=== PATIENT | male | born 1950 | race Caucasian/White ===

== ENCOUNTER 2018-08-23 17:23 | Inpatient (IN) | payer MEDICARE, OTHER, SELFPAY ==
[2018-08-23 17:31] VITALS: BP 144/75; PULSE 83; RESP 14; TEMP 37; O2SAT 93
--- NOTE | 2018-08-23 17:53 | W.ED.GENAD ---
Discharge Plan Disposition Patient Disposition: [facility] INPATIENT Condition: Stable Discharge Details Chief Complaint: Abd Prob Clinical Impression: Bowel obstruction Primary Care Provider: Mary Ellen Simpson ED Provider: Glenn Martino Home Meds and New Rx's Prescriptions: No Action bisacodyl [Dulcolax (bisacodyl)] 10 mg suppository 10 mg OR DAILY PRN (Reason: constipation) Qty: 4 RF: 0 Fleet Enema Extra 19-7 gram/197 mL enema 197 ml OR ONCE Qty: 460 RF: 2 Medical Decision Making 67-year-old male presents on referral from Dr. Simpson's office. He has had a history of abdominal surgery x2, once as a child, and again for anterior abdominal hernia in 1988. The patient has had progressive abdominal distention and discomfort over 2 days time, now with nausea that is worsened by taking liquids or solids by mouth. No flatus and no BM for 2 days. He is afebrile, in mild distress, his presentation and exam are concerning for ileus versus partial or complete bowel obstruction. Patient had IV access established, fluids initiated, given antiemetic, analgesic, referred for laboratory testing and CT imaging. Patient has elevated white blood cell count of 14. Lactic acid is 1.8. CT images reveal Umbilical hernia with high grade small bowel obstruction. I subsequently applied direct pressure to the patient's umbilicus with a palpable reduction of the hernia. NG tube ordered. Dr. Pandya will attend to the patient in consultation Lab Data Lab results reviewed: Yes I reviewed the patient's lab results. Laboratory Results - last 24 hr 08/23/18 08/23/18 08/23/18 17:40 17:40 17:40 WBC 14.04 H RBC 5.27 Hgb 16.0 Hct 47.6 MCV 90.3 MCH 30.4 MCHC 33.6 RDW 13.0 Plt Count 301 MPV 9.6 Immature Gran % 0.1 Neutrophils % 87.3 Lymphocytes % 5.6 Monocytes % 6.9 Eosinophils % 0.0 Basophils % 0.1 Absolute Neutrophils 12.26 H Absolute Lymphocytes 0.79 L Absolute Monocytes 0.97 H Absolute Eosinophils 0.00 Absolute Basophils 0.01 Sodium 144 Potassium 3.6 Chloride 103 Carbon Dioxide 28.1 Anion Gap 12.9 H BUN 25 H Creatinine 1.36 H Estimated GFR/1.73 m2 52.27 Glucose 180 H Lactate 1.8 H Calcium 9.9 Total Bilirubin 1.3 H AST 13 L ALT 18 Alkaline Phosphatase 95 Total Protein 7.6 Albumin 4.0 HPI General Mode of arrival: ambulatory. Date/Time Provider Initiated Documentation: 08/23/18 17:25. Limitations to Documentation: no limitations. Information obtained by: patient. History of Present Illness 67 year old M presents to the emergency department with the chief complaint of Abdominal distention and nausea for 2-1/2 days, described as moderate and similar to prior episodes, Quality is described as dull and constant, and is localized to the abdomen. Patient reports no radiation. Patient started experiencing this day(s) and it has been intermittent. No relieving factors improve symptom(s), Eating worsens symptoms . Patient notes nausea/vomiting; denies fever/chills. Patient did receive the following treatments prior to arrival, none Related Data Home Medications Medication Instructions Recorded Confirmed bisacodyl 10 mg rectal suppository 10 mg OR DAILY PRN #4 each 08/23/18 08/23/18 sodium phosphates 19 gram-7 197 ml OR ONCE #460 ml 08/23/18 08/23/18 gram/197 mL enema Previous Rx's Medication Instructions Recorded bisacodyl 10 mg rectal suppository 10 mg OR DAILY PRN #4 each 08/23/18 sodium phosphates 19 gram-7 197 ml OR ONCE #460 ml 08/23/18 gram/197 mL enema Allergies Allergy/AdvReac Type Severity Reaction Status Date / Time No Known Allergies Allergy Verified 08/23/18 17:59 General Stated Complaint: Abd Prob SERGIO: 3 Review of Systems Review of Systems No fever. Similar symptoms in the past that resolved with nothing by mouth at home and bowel rest. 8 systems reviewed and otherwise negative. [facility] Medical History History of alcoholism (Acute) History of tobacco use (Acute) Malrotation of intestine (Acute) Surgical History S/P tonsillectomy and adenoidectomy (Acute) History of hernia repair (Chronic ~1987) Family History Mother Dementia TIA (transient ischemic attack) Father No problems noted. Son Depression Daughter No problems noted. Social History Smoking/Tobacco Use Status: Former Tobacco Use Tobacco: How many years used: 18 Alcohol Intake: former Year quit: 1984 Drug use: Never Substance use type: does not use Household members: spouse Number of Children: 2 Pets and animals: Yes Pets and animals: cat(s) and dog(s) What is your relationship status?: Panel score (0-1 are the most socially isolated patients): 1 What type of physical activity do you participate in: none Seatbelt use: always Drive intox or ride w/intox dray driver: No Working smoke detector in home: Yes Carbon monox detector in home: Yes Do you feel safe at home: Yes Do you feel safe in your relationship?: Yes Exam Narrative Exam Narrative: GEN: awake, alert, oriented 3. Pleasant, well groomed, interactive. HEAD: Normocephalic, atraumatic ENT: Mucous membranes moist, oropharynx unremarkable, External ear exam unremarkable EYES: PERRL, EOMI NECK: Full ROM, no STEFAN, no menigismus CHEST/RESP: Nontender, clear to auscultation bilateral, no wheeze/rhonchi/rales CARDIOVASCULAR: RRR, no murmur, rub rohan. 2+ Rad pulse bilateral ABDOMEN: Soft, distended, no mass. Minimal tenderness, + but decreased bowel sounds EXT: Full ROM, no edema, no rash Neuro: Grossly normal neurologic exam, conversant, interactive. Psych: Speech fluent, thoughts congruent, affect normal Course Vital Signs Temperature 37.0 C 08/23/18 17:31 Pulse 83 08/23/18 17:31 Respiratory Rate 14 08/23/18 17:31 Blood Pressure 144/75 H 08/23/18 17:31 Pulse Oximetry 93 L 08/23/18 17:31 Temperature 37.0 C 08/23/18 17:31 Temperature Source Temporal Artery Scan 08/23/18 17:31 Pulse 83 08/23/18 17:31 Respiratory Rate 14 08/23/18 17:31 Blood Pressure 144/75 H 08/23/18 17:31 Blood Pressure Position Sitting 08/23/18 17:31 Pulse Oximetry 93 L 08/23/18 17:31 Oxygen Delivery Method Room Air 08/23/18 17:31 Oxygen Flow Rate 0 08/23/18 17:31 Pain Level 6 08/23/18 17:31
--- NOTE | 2018-08-23 17:56 | ED.GENADUL_ITS ---
Discharge Plan Disposition Patient Disposition: [facility] INPATIENT Condition: Stable Discharge Details Chief Complaint: Abd Prob Clinical Impression: Bowel obstruction Primary Care Provider: Mary Ellen Simpson ED Provider: Glenn Martino Home Meds and New Rx's Prescriptions: No Action bisacodyl [Dulcolax (bisacodyl)] 10 mg suppository 10 mg NH DAILY PRN (Reason: constipation) Qty: 4 RF: 0 Fleet Enema Extra 19-7 gram/197 mL enema 197 ml NH ONCE Qty: 460 RF: 2 Medical Decision Making 67-year-old male presents on referral from Dr. Simpson's office. He has had a history of abdominal surgery x2, once as a child, and again for anterior abdominal hernia in 1988. The patient has had progressive abdominal distention and discomfort over 2 days time, now with nausea that is worsened by taking liquids or solids by mouth. No flatus and no BM for 2 days. He is afebrile, in mild distress, his presentation and exam are concerning for ileus versus partial or complete bowel obstruction. Patient had IV access established, fluids initiated, given antiemetic, analgesic, referred for laboratory testing and CT imaging. Patient has elevated white blood cell count of 14. Lactic acid is 1.8. CT images reveal Umbilical hernia with high grade small bowel obstruction. I subsequently applied direct pressure to the patient's umbilicus with a palpable reduction of the hernia. NG tube ordered. Dr. Pandya will attend to the patient in consultation Lab Data Lab results reviewed: Yes I reviewed the patient's lab results. Laboratory Results - last 24 hr 08/23/18 08/23/18 08/23/18 17:40 17:40 17:40 WBC 14.04 H RBC 5.27 Hgb 16.0 Hct 47.6 MCV 90.3 MCH 30.4 MCHC 33.6 RDW 13.0 Plt Count 301 MPV 9.6 Immature Gran % 0.1 Neutrophils % 87.3 Lymphocytes % 5.6 Monocytes % 6.9 Eosinophils % 0.0 Basophils % 0.1 Absolute Neutrophils 12.26 H Absolute Lymphocytes 0.79 L Absolute Monocytes 0.97 H Absolute Eosinophils 0.00 Absolute Basophils 0.01 Sodium 144 Potassium 3.6 Chloride 103 Carbon Dioxide 28.1 Anion Gap 12.9 H BUN 25 H Creatinine 1.36 H Estimated GFR/1.73 m2 52.27 Glucose 180 H Lactate 1.8 H Calcium 9.9 Total Bilirubin 1.3 H AST 13 L ALT 18 Alkaline Phosphatase 95 Total Protein 7.6 Albumin 4.0 HPI General Mode of arrival: ambulatory . Date/Time Provider Initiated Documentation: 08/23/18 17:25 . Limitations to Documentation: no limitations . Information obtained by: patient . History of Present Illness 67 year old M presents to the emergency department with the chief complaint of Abdominal distention and nausea for 2-1/2 days, described as moderate and similar to prior episodes, Quality is described as dull and constant, and is localized to the abdomen. Patient reports no radiation. Patient started experiencing this day(s) and it has been intermittent. No relieving factors improve symptom(s), Eating worsens symptoms . Patient notes nausea/vomiting; denies fever/chills. Patient did receive the following treatments prior to arrival, none Related Data Home Medications Medication Instructions Recorded Confirmed bisacodyl 10 mg rectal suppository 10 mg NH DAILY PRN #4 each 08/23/18 08/23/18 sodium phosphates 19 gram-7 197 ml NH ONCE #460 ml 08/23/18 08/23/18 gram/197 mL enema Previous Rx's Medication Instructions Recorded bisacodyl 10 mg rectal suppository 10 mg NH DAILY PRN #4 each 08/23/18 sodium phosphates 19 gram-7 197 ml NH ONCE #460 ml 08/23/18 gram/197 mL enema Allergies Allergy/AdvReac Type Severity Reaction Status Date / Time No Known Allergies Allergy Verified 08/23/18 17:59 General Stated Complaint: Abd Prob SERGIO: 3 Review of Systems Review of Systems No fever. Similar symptoms in the past that resolved with nothing by mouth at home and bowel rest. 8 systems reviewed and otherwise negative. [facility] Medical History History of alcoholism (Acute) History of tobacco use (Acute) Malrotation of intestine (Acute) Surgical History S/P tonsillectomy and adenoidectomy (Acute) History of hernia repair (Chronic ~1987) Family History Mother Dementia TIA (transient ischemic attack) Father No problems noted. Son Depression Daughter No problems noted. Social History Smoking/Tobacco Use Status: Former Tobacco Use Tobacco: How many years used: 18 Alcohol Intake: former Year quit: 1984 Drug use: Never Substance use type: does not use Household members: spouse Number of Children: 2 Pets and animals: Yes Pets and animals: cat(s) and dog(s) What is your relationship status?: Panel score (0-1 are the most socially isolated patients): 1 What type of physical activity do you participate in: none Seatbelt use: always Drive intox or ride w/intox motorcoach driver: No Working smoke detector in home: Yes Carbon monox detector in home: Yes Do you feel safe at home: Yes Do you feel safe in your relationship?: Yes Exam Narrative Exam Narrative: GEN: awake, alert, oriented 3. Pleasant, well groomed, interactive. HEAD: Normocephalic, atraumatic ENT: Mucous membranes moist, oropharynx unremarkable, External ear exam unremarkable EYES: PERRL, EOMI NECK: Full ROM, no STEFAN, no menigismus CHEST/RESP: Nontender, clear to auscultation bilateral, no wheeze/rhonchi/rales CARDIOVASCULAR: RRR, no murmur, rub rohan. 2+ Rad pulse bilateral ABDOMEN: Soft, distended, no mass. Minimal tenderness, + but decreased bowel sounds EXT: Full ROM, no edema, no rash Neuro: Grossly normal neurologic exam, conversant, interactive. Psych: Speech fluent, thoughts congruent, affect normal Course Vital Signs Temperature 37.0 C 08/23/18 17:31 Pulse 83 08/23/18 17:31 Respiratory Rate 14 08/23/18 17:31 Blood Pressure 144/75 H 08/23/18 17:31 Pulse Oximetry 93 L 08/23/18 17:31 Temperature 37.0 C 08/23/18 17:31 Temperature Source Temporal Artery Scan 08/23/18 17:31 Pulse 83 08/23/18 17:31 Respiratory Rate 14 08/23/18 17:31 Blood Pressure 144/75 H 08/23/18 17:31 Blood Pressure Position Sitting 08/23/18 17:31 Pulse Oximetry 93 L 08/23/18 17:31 Oxygen Delivery Method Room Air 08/23/18 17:31 Oxygen Flow Rate 0 08/23/18 17:31 Pain Level 6 08/23/18 17:31
[2018-08-23 18:05] LABS: Lactate 1.8 mmol/L (0.6-1.4)
[2018-08-23] MEDS: Normal Saline 1,000 ML 150 ML IV (18:06)
[2018-08-23] MEDS: Ondansetron 4 MG/2 ML VIAL IVP (18:07)
[2018-08-23] MEDS: MORPHine 10 MG/ML VIAL 2 MG IVP (18:07)
[2018-08-23 18:08] LABS: Abs Immature Grans 0.02 k/cumm (0.0-0.09); Absolute Monocyte Count 0.97 k/cumm (0.11-0.7); Basophils % 0.1; HCT 47.6 % (40.0-50.0); Immature Grans % 0.1; Lymphocytes % 5.6; Mean Corp. HGB Concentration 33.6 g/dL (32.0-36.0); Mean Corpuscular Hemoglobin 30.4 pg (27.0-33.0); Mean Corpuscular Volume 90.3 fL (80-95); Mean Platelet Volume 9.6 fL (8.0-11.0); Monocytes % 6.9; Neutrophils % 87.3; Platelet Count 301 x1000/uL (130-400); RBC 5.27 m/cumm (4.50-6.00); White Blood Cell Count 14.04 k/cumm (4.4-10.8)
[2018-08-23 18:11] LABS: Absolute Basophil Count 0.01 k/cumm (0.0-0.2); Absolute Lymphocyte Count 0.79 k/cumm (1.2-3.4); Absolute Neutrophil Count 12.26 k/cumm (1.2-6.7)
[2018-08-23 18:25] LABS: ALT 18 U/L (12-78); AST 13 U/L (15-37); Alkaline Phosphatase 95 U/L (46-116); Anion Gap 12.9 mmol/L (3-11); BUN 25 mg/dL (7-18); Bilirubin, Total 1.3 mg/dL (0.2-1.0); CO2 28.1 mmol/L (21.0-32.0); CREATININE 1.36 mg/dL (0.70-1.30); Calcium 9.9 mg/dL (8.5-10.1); Chloride 103 mmol/L (98-107); Estimated GFR 52.27 (mL/min/1.73m2); Glucose 180 mg/dL (70-100); Potassium 3.6 mmol/L (3.5-5.1); Sodium 144 mmol/L (136-145); Total Protein 7.6 g/dL (6.4-8.2)
--- NOTE | 2018-08-23 18:28 | DI.CT_ITS ---
SYMPTOM/DIAGNOSIS: ABD DISTENSION, NAUSEA, ELEVATED CREATININE, ABD PAIN ABDOMEN AND PELVIC CT: The study was carried out without contrast enhancement. In the lower thorax, the heart is normal. Scarring and/or atelectasis is noted involving the lung bases. A 2 mm. calcified nodule is noted in the posterior left lung base. If the patient is at low risk, no routine follow up is suggested. If the patient has a smoking history or other risk factors, a repeat CT in 12 months could be considered. The liver is normal. The gallbladder is normal. There are no stones or ductal dilatation. There is a question regarding mild stranding of the peripancreatic fat which could relate to mild pancreatitis. There are no associated parenchymal changes or fluid collections. There is no evidence of ductal dilatation. The spleen is normal. The adrenals are normal. Note is made of a 2 mm., non obstructing stone in the lower pole of the right kidney. There is no evidence of hydronephrosis. Note is also made of a few subcentimeter parapelvic cysts. The visualized portions of the distal esophagus and stomach are unremarkable. There is an anterior midline abdominal wall hernia measuring up to 2.5 cm. in transverse diameter which contains herniated fat but no herniated bowel. Approximately 4 cm. inferior to this, there is another anterior midline hernia wall in the abdominal wall which contains herniated omental fat and vessels but no evidence of an associated bowel herniation at this site. There is also an umbilical hernia measuring 4 cm. in diameter and contains herniated fat and a single loop of small bowel. The herniated small bowel loop serves as a transition point between dilated proximal small bowel intestinal obstruction. There is no evidence of a small bowel perforation or abscess. Moderate diverticulosis is noted involving the descending colon without evidence of diverticulitis. There are no specific findings to suggest an acute appendix. The bladder is unremarkable. The reproductive organs as visualized are unremarkable. There is no evidence of free air or free fluid in the intraperitoneal space. The soft tissues are unremarkable. There are atherosclerotic changes involving the aorta without evidence of an aneurysm. There is no evidence of lymphadenopathy. IMPRESSION: There is an umbilical hernia containing fat and a single loop of small bowel which is associated with a transition point consistent with a high grade small bowel obstruction. There is no evidence of bowel perforation. There are two additional fatty hernias in the epigastric anterior midline abdominal wall with no evidence of associated bowel herniation. Diverticulosis is noted without evidence of diverticulitis. There is a 2 mm. lower pole right renal stone. In addition, there is a 2 mm. non calcified nodule in the left lung base. For patients who are low risk, no additional evaluation is suggested. For patients with high risk, a repeat chest CT in 12 months could be obtained. There is mild stranding of the peripancreatic fat, the finding could represent extension from mesenteric root related to the bowel obstruction. Mild pancreatitis could also have this appearance.
[2018-08-23 19:20] VITALS: BP 125/73; PULSE 66; RESP 16; TEMP 37.2; O2SAT 93
--- NOTE | 2018-08-23 19:52 | DI.VRAD_ITS ---
EXAM: CT Abdomen and Pelvis Without Contrast EXAM DATE/TIME: 08/23/2018 6:29 PM CLINICAL HISTORY: 67 years old, male; Signs and symptoms; Other: Abd distension \T\ nausea, elev CR. No contrast plea; Prior surgery; Surgery date: 6+ months; Surgery type: Stomach repaired childhood TECHNIQUE: Imaging protocol: Axial computed tomography images of the abdomen and pelvis without contrast. Coronal and sagittal reformatted images were created and reviewed. Radiation optimization: All CT scans at this facility use at least one of these dose optimization techniques: automated exposure control; mA and/or kV adjustment per patient size (includes targeted exams where dose is matched to clinical indication); or iterative reconstruction. COMPARISON: No comparison exams were available. FINDINGS: Lower thorax: Heart size normal. Patchy scarring and atelectasis in the lung bases. 2 mm noncalcified nodule in the posterior left lung base.For patients at low risk (minimal or absent history of smoking and of other known risk factors), no routine follow-up is indicated. For patients at high risk (history of smoking or of other known risk factors), consider optional CT at 12 months. (Carmelo et al., Fleischner Society, 2017). ABDOMEN: Liver: Normal size and contour. No mass lesions. Gallbladder and bile ducts: Normal. No calcified stones. No ductal dilation. Pancreas: Question mild stranding in the peripancreatic fat which could relate to mild pancreatitis, clinical correlation recommended. No associated parenchymal changes or fluid collections were identified. No pancreatic ductal dilatation or pancreatic mass lesion. Spleen: Normal. No splenomegaly. Adrenals: Normal. No adrenal mass. Kidneys and ureters: 2 mm nonobstructive stone in the lower pole of the right kidney. No hydronephrosis. A few small subcentimeter peripelvic cysts are suspected bilaterally. No renal cortical lesions. Stomach and bowel: The visualized distal esophagus and stomach are unremarkable. There is an epigastric anterior midline abdominal wall hernia on series 2 image 13 measuring 2.6 cm transverse which contains herniated fat but no herniated bowel. Approximately 4 cm inferior to this there is another anterior midline abdominal wall hernia which contains herniated omental fat and vessels but no evidence of associated bowel herniation at this site. There is also an umbilical hernia measuring 4.3 cm across it the defect, which contains herniated fat and a single loop of small bowel. The herniated small bowel loop serves as a transition point between the dilated proximal small intestine (7.4 cm diameter) and the decompressed distal small bowel, suggesting high-grade small bowel obstruction. No evidence of associated bowel perforation or abscess. There is moderate diverticulosis in the descending and sigmoid colon without evidence of acute diverticulitis. Appendix: Normal. No evidence of appendicitis. PELVIS: Bladder: Unremarkable as visualized. Reproductive: Unremarkable as visualized. ABDOMEN and PELVIS: Intraperitoneal space: No free fluid or air. Bones/joints: No acute osseous abnormalities. Soft tissues: Unremarkable. Vasculature: Mild atherosclerotic aortic and iliac calcification without aneurysm. Lymph nodes: No adenopathy. IMPRESSION: 1. Umbilical hernia containing herniated fat and a single loop of small bowel with associated transition point consistent with high-grade small bowel obstruction. No evidence of bowel perforation or abscess. 2. There are 2 additional fatty hernias in the epigastric anterior midline abdominal wall with no evidence of associated bowel herniation or of structures at these sites. 3. Distal colonic diverticulosis without evidence of diverticulitis. 4. 2 mm nonobstructive right renal stone. 5. 2 mm noncalcified nodule in the left lung base. For patients at low risk (minimal or absent history of smoking and of other known risk factors), no routine follow-up is indicated. For patients at high risk (history of smoking or of other known risk factors), consider optional CT at 12 months. (Carmelo et al., Fleischner Society, 2017). 6. Mild stranding in the peripancreatic fat noted. This may simply represent edema extending from the mesenteric root related to bowel obstruction. Mild pancreatitis could potentially produce this appearance. 7. 7.THIS REPORT CONTAINS FINDINGS THAT MAY BE CRITICAL TO PATIENT CARE. The findings were verbally communicated via telephone conference with NICCI BECKER at 7:51 PM EDT on 08/23/2018. The findings were acknowledged and understood. Dictated and Authenticated by: Yordan Vasquez MD. Ordering:ALICE Elizabeth MD
[2018-08-23] MEDS: Lidocaine 2% Viscous 15 ML CUP (20:25)
--- NOTE | 2018-08-23 21:08 | HPE_ITS ---
Date of service: 08/23/18 Time of Service: 21:08 Assessment and Plan (1) Small bowel obstruction: Current visit: Yes Status: Acute A\\ [address] scan. 2 with fat and or omentum in it. Umbilical hernia with fat and one loop of small bowel. Lactate slightly elevated. Hernia reduced by Dr. Martino Abdomen with minimal tenderness. No guarding or rebound P\\ Admit for bowel rest and hydration NG tube to LIWS Diet: NPO DVT Px: Lovenox IM daily GI Px: IV protonix daily Activity: ambulate TID Antibiotics: none at this time. Recheck labs in am Await return of GI function Discussed possible surgery if abdominal pain gets worse or the obstruction doesn't resolve with reduction of the hernia Discussed elective repair - will refer to [facility] or [facility] for attempt at Laparoscopic repair of his 3 hernias Questions were entertained and answered to his satisfaction and he wished to proceed with the above plan. MOre then 30 minute were spend face to face explaining the diagnosis and teratment plan History of Present Illness Chief Complaint: SBO Consults Consult date: 08/23/18 Requesting physician: Glenn Martino Narrative: 67 year old M presents to the emergency department with the chief complaint of Abdominal distention and nausea for 2-1/2 days, described as moderate and similar to prior episodes, Quality is described as dull and constant, and is localized to the abdomen. Patient reports no radiation. Patient started experiencing this day(s) and it has been intermittent. No relieving factors improve symptom(s), Eating worsens symptoms . Patient notes nausea/vomiting; denies fever/chills. He called his PCP and was told to try a suppository and fleets enema which he did and had minimal results. Last normal BM was wednesday Morning. He normally has a soft BM every day. He does have a history of SBO in the past. He has not required surgery for these. he had an abdominal procedure done as an for some sort of malrotation. He then had to have an incisional hernia repair with mesh about [address] scan was done in the ED which showed 3 hernias. One in the epigastric area with incarcerated fat, one above the umbilicus with omentum stuck in it and then the umbilical hernia with omentum and one loop of small bowel. The transition zone was noted in the hernia. The hernia was reduced in the ED by Dr. Martino. He has not had any emesis since being in the ER. His lactate was just above normal and his Cr was elevated, most likely due to dehydration. I was asked to assess patient for admission. We have no ICU beds at this time. Review of Systems Constitutional Denies fever(s), Reports poor appetite and Reports snoring Eyes Reports eye discharge (chronic issue due to allergies) Cardiovascular Denies chest pain, Denies chest pain at rest, Denies rapid heart rate, Denies irregular heart rhythm, Denies claudication, Denies palpitations, Denies dyspnea and Denies dyspnea on exertion Respiratory Denies cough, Denies hemoptysis, Denies dyspnea, Denies dyspnea on exertion and Reports snoring Gastrointestinal Reports as per HPI and Reports heartburn Genitourinary Denies dysuria Endocrine Denies cold intolerance, Denies heat intolerance and Denies palpitations Hematologic/Lymphatic Denies easy bleeding, Denies easy bruising and Denies lymphadenopathy [facility] Medical History History of alcoholism (Acute) History of tobacco use (Acute) Malrotation of intestine (Acute) Surgical History S/P tonsillectomy and adenoidectomy (Acute) History of hernia repair (Chronic ~1987) Family History Mother Dementia TIA (transient ischemic attack) Father No problems noted. Son Depression Daughter No problems noted. Social History Smoking/Tobacco Use Status: Former Tobacco Use Tobacco: How many years used: 18 Alcohol Intake: former Year quit: 1984 Drug use: Never Substance use type: does not use Household members: spouse Number of Children: 2 Pets and animals: Yes Pets and animals: cat(s) and dog(s) What is your relationship status?: Panel score (0-1 are the most socially isolated patients): 1 What type of physical activity do you participate in: none Seatbelt use: always Drive intox or ride w/intox class a truck driver: No Working smoke detector in home: Yes Carbon monox detector in home: Yes Do you feel safe at home: Yes Do you feel safe in your relationship?: Yes Meds Home Medications Medication Instructions Recorded Confirmed Type bisacodyl 10 mg rectal suppository 10 mg WV DAILY PRN #4 each 08/23/18 08/23/18 Rx sodium phosphates 19 gram-7 197 ml WV ONCE #460 ml 08/23/18 08/23/18 Rx gram/197 mL enema Allergies Allergy/AdvReac Type Severity Reaction Status Date / Time No Known Allergies Allergy Verified 08/23/18 17:59 Exam Const General: comfortable and no acute distress Nutritional Appearance: obese Orientation: alert and oriented x3 HENMT Head: normocephalic and atraumatic Mouth: oral mucosae normal and lip normal Eyes Conjunctivae: conjunctival abnormality bilaterally conjunctival injection and discharge Pupils: PERRL Resp Effort & Inspection: normal respiratory effort Auscultation: clear to auscultation bilaterally Cardio Rate: regular rate Rhythm: regular rhythm Heart Sounds: no gallops, murmur systolic II/ and no rubs GI Inspection: normal to inspection and scar Palpation: soft, no hepatosplenomegaly and tender (mild tenderness were the incarcerated hernia was. No bowel palpated now) Auscultation: hypoactive bowel sounds Rectal Exam: deferred Abdomen image: 1. old scar 2. site of incarceration Results Labs : 08/23/18 17:40 08/23/18 17:40 Laboratory Results - last 24 hr 08/23/18 08/23/18 08/23/18 17:40 17:40 17:40 WBC 14.04 H RBC 5.27 Hgb 16.0 Hct 47.6 MCV 90.3 MCH 30.4 MCHC 33.6 RDW 13.0 Plt Count 301 MPV 9.6 Immature Gran % 0.1 Neutrophils % 87.3 Lymphocytes % 5.6 Monocytes % 6.9 Eosinophils % 0.0 Basophils % 0.1 Absolute Neutrophils 12.26 H Absolute Lymphocytes 0.79 L Absolute Monocytes 0.97 H Absolute Eosinophils 0.00 Absolute Basophils 0.01 Sodium 144 Potassium 3.6 Chloride 103 Carbon Dioxide 28.1 Anion Gap 12.9 H BUN 25 H Creatinine 1.36 H Estimated GFR/1.73 m2 52.27 Glucose 180 H Lactate 1.8 H Calcium 9.9 Total Bilirubin 1.3 H AST 13 L ALT 18 Alkaline Phosphatase 95 Total Protein 7.6 Albumin 4.0 Last Vital Signs Temp 99.0 F 08/23/18 19:20 Pulse 66 08/23/18 19:20 Resp 16 08/23/18 19:20 BP 125/73 08/23/18 19:20 Pulse Ox 93 L 08/23/18 19:20
[2018-08-23] MEDS: Lactated Ringers 1,000 ML 125 ML IV (21:37)
[2018-08-23 21:55] VITALS: BP 118/76; PULSE 70; RESP 16; TEMP 37.1; O2SAT 93
[2018-08-23 22:00] VITALS: BP 135/82; PULSE 64; RESP 18; TEMP 36.7; O2SAT 93
[2018-08-23 22:17] VITALS: BP 135/82; PULSE 64; RESP 18; TEMP 36.7; O2SAT 93
[2018-08-23] MEDS: Pantoprazole 40 MG VIAL IVP (22:49)
[2018-08-24] VITALS (9 sets, daily range): BP systolic 106–129; BP diastolic 66–80; PULSE 47–86; RESP 14–20; TEMP 36.1–37.2; O2SAT 91–96
--- NOTE | 2018-08-24 00:35 | NUR.NOTE ---
Nursing Note: At 22:00 hrs. Pt brought to Rm 212. AO x 3. with NGTube on intermittent low wall suction, draining brownish secretions with total volume of 400 cc from ER. Refused to get lovenox as ordered.Education provided by production underwriter and top distribution executive but with little insight. Pt reported of passing gas, might have bowel movement as verbalized. Will continue to monitor.
[2018-08-24] MEDS: Lactated Ringers 1,000 ML 125 ML IV (05:47)
--- NOTE | 2018-08-24 06:51 | W.PM.PROGNOT ---
Date of Service Date of service: 08/24/18 Time of Service: 06:51 Assessment and Plan (1) Small bowel obstruction: Current visit: Yes Status: Acute Abdominal pain has improved over night and he is passing flatus. (-) BM, Hypoactive bowel sounds on exam. . Urinating without difficulty. AM Labs pending NG tube- on LIWS 550mL out overnight at 0600 DIET- NPO PAIN- Currently denies pain. He has not taken any medications since last night in the ED. Toradol, Tylenol and Dilaudid are ordered for pain. DVT prophylaxis- Lovenox FLUIDS- LR @ 125 ml/hr GI prophylaxis- Protonix ACTIVITY- Ambulation TID, Encouraged sitting in the chair with deep breathing techniques. Subjective Interval history since last seen: Mr. Jalloh reports that is is feeling okay this morning. He denies abdominal pain, nausea, or vomiting. Over night he reports passing flatus, (-) BM. He expresses that he is eager to get up and walk. Exam Const General: cooperative and comfortable Orientation: alert and oriented x3 Resp Effort & Inspection: normal respiratory effort, no audible wheezes and no cough Auscultation: clear to auscultation bilaterally Cardio Rate: regular rate Rhythm: regular rhythm Heart Sounds: S1 normal, S2 normal and no murmurs GI Inspection: normal to inspection, non-distended and visible herniation (umbilical) Palpation: soft, no guarding and tender periumbilically Auscultation: hypoactive bowel sounds Objective Objective Clinical Data: Abnormal lab results 08/23/18 08/23/18 08/23/18 Range/Units 17:40 17:40 17:40 WBC 14.04 H (4.4-10.8) k/cumm Absolute Neutrophils 12.26 H (1.2-6.7) k/cumm Absolute Lymphocytes 0.79 L (1.2-3.4) k/cumm Absolute Monocytes 0.97 H (0.11-0.7) k/cumm Anion Gap 12.9 H (3-11) mmol/L BUN 25 H (7-18) mg/dL Creatinine 1.36 H (0.70-1.30) mg/dL Glucose 180 H (70-100) mg/dL Lactate 1.8 H (0.6-1.4) mmol/L Total Bilirubin 1.3 H (0.2-1.0) mg/dL AST 13 L (15-37) U/L Vital Signs Temperature 36.7 C 08/24/18 03:45 Temperature Source Tympanic 08/24/18 03:45 Pulse 86 08/24/18 04:55 Pulse Rhythm Regular 08/23/18 22:17 Respiratory Rate 14 08/24/18 03:45 Respiratory Effort Non-Labored 08/23/18 22:17 Respiratory Depth Normal 08/23/18 22:17 Respiratory Pattern Normal 08/23/18 22:17 Blood Pressure 106/66 08/24/18 03:45 Blood Pressure Position Sitting 08/23/18 17:31 Pulse Oximetry 94 L 08/24/18 04:55 Oxygen Delivery Method Room Air 08/24/18 04:55 Oxygen Flow Rate 0 08/24/18 04:55 Pain Level 0 08/23/18 22:17 Intake & Output 08/23/18 08/23/18 08/24/18 06:59 18:59 06:59 Intake Total 1999 Output Total 650 / 650 Balance 1350 / 1350 Weight 105.233 kg 105.233 kg Intake: IV 1999 Output: Gastric Drainage 450 / 450 Right Nare 450 / 450 Urine 200 / 200 Other: Urine Color Light Kasey Urine Appearance Clear Voiding Methods Urinal Laboratory Results WBC 14.04 k/cumm (4.4-10.8) H 08/23/18 17:40 RBC 5.27 m/cumm (4.50-6.00) 08/23/18 17:40 Hgb 16.0 g/dL (13.5-17.5) 08/23/18 17:40 Hct 47.6 % (40.0-50.0) 08/23/18 17:40 MCV 90.3 fL (80-95) 08/23/18 17:40 MCH 30.4 pg (27.0-33.0) 08/23/18 17:40 MCHC 33.6 g/dL (32.0-36.0) 08/23/18 17:40 RDW 13.0 % (11.8-14.1) 08/23/18 17:40 Plt Count 301 x1000/uL (130-400) 08/23/18 17:40 MPV 9.6 fL (8.0-11.0) 08/23/18 17:40 Immature Gran % 0.1 08/23/18 17:40 Neutrophils % 87.3 08/23/18 17:40 Lymphocytes % 5.6 08/23/18 17:40 Monocytes % 6.9 08/23/18 17:40 Eosinophils % 0.0 08/23/18 17:40 Basophils % 0.1 08/23/18 17:40 Absolute Neutrophils 12.26 k/cumm (1.2-6.7) H 08/23/18 17:40 Absolute Lymphocytes 0.79 k/cumm (1.2-3.4) L 08/23/18 17:40 Absolute Monocytes 0.97 k/cumm (0.11-0.7) H 08/23/18 17:40 Absolute Eosinophils 0.00 k/cumm (0.0-0.7) 08/23/18 17:40 Absolute Basophils 0.01 k/cumm (0.0-0.2) 08/23/18 17:40 Sodium 144 mmol/L (136-145) 08/23/18 17:40 Potassium 3.6 mmol/L (3.5-5.1) 08/23/18 17:40 Chloride 103 mmol/L (98-107) 08/23/18 17:40 Carbon Dioxide 28.1 mmol/L (21.0-32.0) 08/23/18 17:40 Anion Gap 12.9 mmol/L (3-11) H 08/23/18 17:40 BUN 25 mg/dL (7-18) H 08/23/18 17:40 Creatinine 1.36 mg/dL (0.70-1.30) H 08/23/18 17:40 Estimated GFR/1.73 m2 52.27 (mL/min/1.73m2) 08/23/18 17:40 Glucose 180 mg/dL (70-100) H 08/23/18 17:40 Lactate 1.8 mmol/L (0.6-1.4) H 08/23/18 17:40 Calcium 9.9 mg/dL (8.5-10.1) 08/23/18 17:40 Total Bilirubin 1.3 mg/dL (0.2-1.0) H 08/23/18 17:40 AST 13 U/L (15-37) L 08/23/18 17:40 ALT 18 U/L (12-78) 08/23/18 17:40 Alkaline Phosphatase 95 U/L (46-116) 08/23/18 17:40 Total Protein 7.6 g/dL (6.4-8.2) 08/23/18 17:40 Albumin 4.0 g/dL (3.4-5.0) 08/23/18 17:40
[2018-08-24 07:25] LABS: Lactate-non-spesis 1.2 mmol/l (0.6-1.4)
[2018-08-24 07:27] LABS: Abs Immature Grans 0.02 k/cumm (0.0-0.09); Absolute Basophil Count 0.03 k/cumm (0.0-0.2); Absolute Eosinophil Count 0.08 k/cumm (0.0-0.7); Absolute Lymphocyte Count 1.66 k/cumm (1.2-3.4); Absolute Monocyte Count 0.95 k/cumm (0.11-0.7); Absolute Neutrophil Count 5.91 k/cumm (1.2-6.7); Basophils % 0.3; Eosinophils % 0.9; HCT 41.7 % (40.0-50.0); HGB 13.4 g/dL (13.5-17.5); Immature Grans % 0.2; Lymphocytes % 19.2; Mean Corp. HGB Concentration 32.1 g/dL (32.0-36.0); Mean Corpuscular Hemoglobin 29.8 pg (27.0-33.0); Mean Corpuscular Volume 92.9 fL (80-95); Mean Platelet Volume 9.2 fL (8.0-11.0); Neutrophils % 68.4; Platelet Count 217 x1000/uL (130-400); RBC 4.49 m/cumm (4.50-6.00); RBC Distribution Width 13.2 % (11.8-14.1); White Blood Cell Count 8.64 k/cumm (4.4-10.8)
[2018-08-24 07:47] LABS: Anion Gap 7.9 mmol/L (3-11); BUN 24 mg/dL (7-18); CO2 28.1 mmol/L (21.0-32.0); Chloride 110 mmol/L (98-107); Glucose 99 mg/dL (70-100); Potassium 3.9 mmol/L (3.5-5.1); Sodium 146 mmol/L (136-145)
--- NOTE | 2018-08-24 10:11 | PDOC.CMIN ---
- If Service Date Differs Date of service: 08/24/18 Time of Service: 10:11 Care Management Initial Assess REASON FOR HOSPITALIZATION:: SBO PAST MEDICAL HISTORY/PAST SURGICAL HISTORY:: Medical History: History of alcoholism, History of tobacco use, Malrotation of intestine. Surgical History: S/P tonsillectomy and adenoidectomy,. History of hernia repair (Chronic ~1987) PREVIOUS FUNCTIONAL STATUS/SOCIAL/FAMILY SUPPORTS:: Homer and his live in [place] in a large [facility] home that has 3 floors. 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 He is independent with ADLs and continues to drive. The [facility] have 2 adult children ages 26 and 28 who are supportive. CURRENT FUNCTIONAL STATUS:: Homer was sitting up in bed visiting with his . He feels much better. He says that he has a hernia that was blocking his bowel but that the doctor in the ED put it back so it has resolved. He does need surgery but according to him, the plan is to refer him to [facility] or [facility] for the procedure. He expects he will be discharged later today or tomorrow. ADVANCE DIRECTIVES:: Provided [place] Advanced Directives forms. Has patient been provided with information about the portal?: Yes (given brochure) Did the patient sign up for the portal?: No CODE STATUS:: Full Code INSURANCE COVERAGE / FINANCIAL ISSUES:: [facility] CURRENT HOME/COMMUNITY SERVICES/EQUIPMENT:: none currently PRIMARY CARE PHYSICIAN:: Mary Ellen Simpson POTENTIAL DISCHARGE NEEDS:: Will likely have surgery at [facility] or [facility] PATIENT/FAMILY EDUCATION NEEDS:: Discharge plan, limitations, follow up plan of care ANTICIPATED BARRIERS TO DISCHARGE:: none at this time TRANSPORTATION:: Via private automobile with at time of discharge PLAN:: Homer is being monitored for his bowel obstruction. His diet has been advanced and his pain is better. Anticipate he will be discharged home with no services. He may be referred to a tertiary care facility for surgery to repair his hernias (ventral, epigastric and umbilical). will continue to provide support to patient, family, care team and discharge planning.
--- NOTE | 2018-08-24 10:24 | INITIAL_ITS ---
- If Service Date Differs Date of service: 08/24/18 Time of Service: 10:11 Care Management Initial Assess REASON FOR HOSPITALIZATION:: SBO PAST MEDICAL HISTORY/PAST SURGICAL HISTORY:: Medical History: History of alcoholism, History of tobacco use, Malrotation of intestine. Surgical History: S/P tonsillectomy and adenoidectomy,. History of hernia repair (Chronic ~1987) PREVIOUS FUNCTIONAL STATUS/SOCIAL/FAMILY SUPPORTS:: Homer and his live in [place] in a large [facility] home that has 3 floors. 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 He is independent with ADLs and continues to drive. The [facility] have 2 adult children ages 26 and 28 who are supportive. CURRENT FUNCTIONAL STATUS:: Homer was sitting up in bed visiting with his . He feels much better. He says that he has a hernia that was blocking his bowel but that the doctor in the ED put it back so it has resolved. He does need surgery but according to him, the plan is to refer him to [facility] or [facility] for the procedure. He expects he will be discharged later today or tomorrow. ADVANCE DIRECTIVES:: Provided [place] Advanced Directives forms. Has patient been provided with information about the portal?: Yes (given brochure) Did the patient sign up for the portal?: No CODE STATUS:: Full Code INSURANCE COVERAGE / FINANCIAL ISSUES:: [facility] CURRENT HOME/COMMUNITY SERVICES/EQUIPMENT:: none currently PRIMARY CARE PHYSICIAN:: Mary Ellen Simpson POTENTIAL DISCHARGE NEEDS:: Will likely have surgery at [facility] or [facility] PATIENT/FAMILY EDUCATION NEEDS:: Discharge plan, limitations, follow up plan of care ANTICIPATED BARRIERS TO DISCHARGE:: none at this time TRANSPORTATION:: Via private automobile with at time of discharge PLAN:: Homer is being monitored for his bowel obstruction. His diet has been advanced and his pain is better. Anticipate he will be discharged home with no services. He may be referred to a tertiary care facility for surgery to repair his hernias (ventral, epigastric and umbilical). will continue to provide support to patient, family, care team and discharge planning.
--- NOTE | 2018-08-24 11:12 | PHARADMIT ---
Admission Pharmacy Clinical Review SMALL BOWEL OBSTRUCTION Code Status Full Code Current Weight Wgt-105.2 kg Renally Cleared and Narrow Therapeutic Index Meds CrCl~ 55 mL/min Meds-OK QTc Value / Action Taken NA BP Control, Fever BP- 128/80 Tmax- 36.7C Electrolytes reviewed Na- 16 K+3.9 DVT Prophylaxis Lovenox- 40mg Opiate Usage / Scheduled Bowel Regimen Ordered Yes No Plt/SCr for Heparin / Enoxaparin Plts-217 SCr-1.20 INR for Warfarin NA H/H stable, WBC/Bands H&H-13.4/41.7 WBC- 8.64 Antibiotic appropriateness none Cultures and Sensitivities none Surgical ABX d/c within 24 hr NA DM control / Insulin Dosing BG-99 Heart Failure (Check EF%) (DELROY's, B-Block, Diuretics) none IV to PO Switch No Home Meds Reviewed Yes Home Meds Not Ordered Ad Alexander Comments
--- NOTE | 2018-08-24 13:40 | CHAPLAIN ---
Homer was resting in bed when I visited. His was here to visit, but had just stepped out. I explained my role and offered support.
--- NOTE | 2018-08-24 15:40 | W.PM.PROGNOT ---
Date of Service Date of service: 08/24/18 Time of Service: 15:40 Assessment and Plan (1) Umbilical hernia: Current visit: Yes Status: Acute A\\ Umbilical Hernia reducible. No pain P\\ Will advance his diet to soft diet tonight If he is able to tolerate that then will probably discharge tomorrow. He has had multiple SBO obstructions in the past and I am assuming that he has a lot of adhesions from his 2 past surgeries. I have discussed [place] to [place] [facility] [place] Min[place]. Dr. Kilpatrick to take over care in the morning. Qualifiers: Obstruction and gangrene presence: without obstruction or gangrene Qualified Code(s): K42.9 - Umbilical hernia without obstruction or gangrene Subjective Interval history since last seen: Mr. Jalloh is doing well today. He has been drinking some fluids. Feeling a little full right now. He has not had any N/V. He continues to pass gas. He has not had a BM. Exam GI Inspection: incision (well healed incision) Palpation: soft, no hepatosplenomegaly, hernia (epigastric, ventral above umbilicus and umbilical. ) and nontender Auscultation: normal bowel sounds Abdomen image: 1. old incision 2. epigastric hernia with incarcerated fat 3. ventral hernia with incarcerated omentum 4. umbilical hernia which is reducible Objective Objective Clinical Data: Abnormal lab results 08/23/18 08/23/18 08/23/18 Range/Units 17:40 17:40 17:40 WBC 14.04 H (4.4-10.8) k/cumm RBC (4.50-6.00) m/cumm Hgb (13.5-17.5) g/dL Absolute Neutrophils 12.26 H (1.2-6.7) k/cumm Absolute Lymphocytes 0.79 L (1.2-3.4) k/cumm Absolute Monocytes 0.97 H (0.11-0.7) k/cumm Sodium (136-145) mmol/L Chloride (98-107) mmol/L Anion Gap 12.9 H (3-11) mmol/L BUN 25 H (7-18) mg/dL Creatinine 1.36 H (0.70-1.30) mg/dL Glucose 180 H (70-100) mg/dL Lactate 1.8 H (0.6-1.4) mmol/L Total Bilirubin 1.3 H (0.2-1.0) mg/dL AST 13 L (15-37) U/L 08/24/18 08/24/18 Range/Units 07:18 07:18 WBC (4.4-10.8) k/cumm RBC 4.49 L (4.50-6.00) m/cumm Hgb 13.4 L D (13.5-17.5) g/dL Absolute Neutrophils (1.2-6.7) k/cumm Absolute Lymphocytes (1.2-3.4) k/cumm Absolute Monocytes 0.95 H (0.11-0.7) k/cumm Sodium 146 H (136-145) mmol/L Chloride 110 H (98-107) mmol/L Anion Gap (3-11) mmol/L BUN 24 H (7-18) mg/dL Creatinine (0.70-1.30) mg/dL Glucose (70-100) mg/dL Lactate (0.6-1.4) mmol/L Total Bilirubin (0.2-1.0) mg/dL AST (15-37) U/L Vital Signs Temperature 97.9 F 08/24/18 11:30 Temperature Source Tympanic 08/24/18 11:30 Pulse 66 08/24/18 11:30 Pulse Rhythm Regular 08/24/18 07:35 Respiratory Rate 19 08/24/18 11:30 Respiratory Effort Non-Labored 08/24/18 07:35 Respiratory Depth Normal 08/24/18 07:35 Respiratory Pattern Normal 08/24/18 07:35 Blood Pressure 129/75 08/24/18 11:30 Blood Pressure Position Sitting 08/23/18 17:31 Pulse Oximetry 93 L 08/24/18 11:30 Oxygen Delivery Method Room Air 08/24/18 11:30 Oxygen Flow Rate 0 08/24/18 11:30 Pain Level 0 08/23/18 22:17 Intake & Output 08/23/18 08/24/18 08/24/18 23:59 11:59 23:59 Intake Total 1000 / 1000 1545.833 / 1545.833 Output Total 450 / 450 200 / 200 Balance 550 / 550 1345.833 / 1345.833 Weight 231 lb 15.985 oz Intake: IV 1000 / 1000 1545.833 / 1545.833 Output: Gastric Drainage 450 / 450 Right Nare 450 / 450 Urine 200 / 200 Other: Urine Color Light Kasey Urine Appearance Clear Comment voids independently Voiding Methods Urinal Laboratory Results WBC 8.64 k/cumm (4.4-10.8) D 08/24/18 07:18 RBC 4.49 m/cumm (4.50-6.00) L 08/24/18 07:18 Hgb 13.4 g/dL (13.5-17.5) L D 08/24/18 07:18 Hct 41.7 % (40.0-50.0) 08/24/18 07:18 MCV 92.9 fL (80-95) 08/24/18 07:18 MCH 29.8 pg (27.0-33.0) 08/24/18 07:18 MCHC 32.1 g/dL (32.0-36.0) 08/24/18 07:18 RDW 13.2 % (11.8-14.1) 08/24/18 07:18 Plt Count 217 x1000/uL (130-400) 08/24/18 07:18 MPV 9.2 fL (8.0-11.0) 08/24/18 07:18 Immature Gran % 0.2 08/24/18 07:18 Neutrophils % 68.4 08/24/18 07:18 Lymphocytes % 19.2 08/24/18 07:18 Monocytes % 11.0 08/24/18 07:18 Eosinophils % 0.9 08/24/18 07:18 Basophils % 0.3 08/24/18 07:18 Absolute Neutrophils 5.91 k/cumm (1.2-6.7) 08/24/18 07:18 Absolute Lymphocytes 1.66 k/cumm (1.2-3.4) 08/24/18 07:18 Absolute Monocytes 0.95 k/cumm (0.11-0.7) H 08/24/18 07:18 Absolute Eosinophils 0.08 k/cumm (0.0-0.7) 08/24/18 07:18 Absolute Basophils 0.03 k/cumm (0.0-0.2) 08/24/18 07:18 Sodium 146 mmol/L (136-145) H 08/24/18 07:18 Potassium 3.9 mmol/L (3.5-5.1) 08/24/18 07:18 Chloride 110 mmol/L (98-107) H 08/24/18 07:18 Carbon Dioxide 28.1 mmol/L (21.0-32.0) 08/24/18 07:18 Anion Gap 7.9 mmol/L (3-11) 08/24/18 07:18 BUN 24 mg/dL (7-18) H 08/24/18 07:18 Creatinine 1.20 mg/dL (0.70-1.30) 08/24/18 07:18 Estimated GFR/1.73 m2 >= 60.00 (mL/min/1.73m2) 08/24/18 07:18 Glucose 99 mg/dL (70-100) D 08/24/18 07:18 Lactate 1.2 mmol/l (0.6-1.4) 08/24/18 07:18 Calcium 9.0 mg/dL (8.5-10.1) 08/24/18 07:18 Total Bilirubin 1.3 mg/dL (0.2-1.0) H 08/23/18 17:40 AST 13 U/L (15-37) L 08/23/18 17:40 ALT 18 U/L (12-78) 08/23/18 17:40 Alkaline Phosphatase 95 U/L (46-116) 08/23/18 17:40 Total Protein 7.6 g/dL (6.4-8.2) 08/23/18 17:40 Albumin 4.0 g/dL (3.4-5.0) 08/23/18 17:40
[2018-08-24] MEDS: Refresh PLUS Eye Drops 0.4ml OU (19:26)
[2018-08-25 08:10] VITALS: BP 124/76; PULSE 52; RESP 18; TEMP 36.6; O2SAT 95
[2018-08-25] MEDS: Olopatadine 0.1% OPHTH SOL 5 ML BTL OU (08:14)
[2018-08-25] MEDS: Refresh PLUS Eye Drops 0.4ml OU ×3 (08:15→20:48)
--- NOTE | 2018-08-25 10:18 | W.PM.PROGNOT ---
Date of Service Date of service: 08/25/18 Time of Service: : Assessment and Plan (1) Small bowel obstruction: Current visit: Yes Status: Acute ate regular diet today. now feels bloated. but has not had BM since Wednesday. no pain or nausea -will try some mag citrate adn see how he feels at noon. if OK plan for d/c. (2) Umbilical hernia: Current visit: Yes Status: Acute no change Qualifiers: Obstruction and gangrene presence: without obstruction or gangrene Qualified Code(s): K42.9 - Umbilical hernia without obstruction or gangrene Subjective Interval history since last seen: pt ate rgular breakfast this am and feels bloated. Not had BM since admission. passing gas. no nausea. good BS. will try some mag citrate and see if that will stimulate his bowels. encourage walking. no pain. Exam Const General: cooperative, healthy appearing, comfortable, no acute distress, well developed and well groomed Nutritional Appearance: average body habitus and well nourished Orientation: alert, awake and oriented x3 HENNC Head: normal to inspection, normocephalic and atraumatic Ears: hearing grossly normal bilaterally and external ears normal General nose exam: external nose normal Face and sinus: normal facial exam and sinuses nontender Mouth: oral mucosae normal, lip normal, tongue normal and moist mucous membranes Teeth and gingiva: dentition normal Eyes General: appearance normal, both eyes and all related structures Conjunctivae: conjunctivae normal Sclera: sclerae normal Pupils: PERRL Neck Neck: normal visual inspection and full ROM Chest Chest: normal inspection of the chest Resp Effort & Inspection: normal respiratory effort, able to speak in complete sentences, no cough, no nasal flaring, not tachypneic and no use of accessory muscles Auscultation: clear to auscultation bilaterally, no rales, no rhonchi and no wheezes Cardio Jugular venous pressure: no JVD Rate: regular rate Rhythm: regular rhythm GI Inspection: normal to inspection, no edema and non-distended Palpation: soft, no masses, nontender and No ascites Auscultation: normal bowel sounds Other: multiple hernias that are soft and non tender. good BS. unsure if distended are nl abdominal protrusion. Skin General skin exam: no rashes or lesions noted Neuro General: alert, oriented x3, oriented, gait normal, moves all extremities, no focal motor deficits and CN's II-XI intact bilaterally Cognition: normal cognition Speech: speech normal Motor: muscle tone normal throughout Extrem General: normal to inspection, full ROM and no clubbing, cyanosis or edema Psych Appearance: grossly normal and well kempt Mental Status: mental status grossly normal Speech and Movement: speech and movement normal Affect: normal affect Objective Objective Clinical Data: Vital Signs Temperature 36.6 C 08/25/18 08:10 Temperature Source Tympanic 08/25/18 08:10 Pulse 52 L 08/25/18 08:10 Pulse Rhythm Regular 08/24/18 16:00 Respiratory Rate 18 08/25/18 08:10 Respiratory Effort Non-Labored 08/24/18 16:00 Respiratory Depth Normal 08/24/18 16:00 Respiratory Pattern Normal 08/24/18 16:00 Blood Pressure 124/76 08/25/18 08:10 Blood Pressure Position Sitting 08/23/18 17:31 Pulse Oximetry 95 08/25/18 08:10 Oxygen Delivery Method Room Air 08/25/18 08:10 Oxygen Flow Rate 0 08/25/18 08:10 Pain Level 0 08/24/18 23:30 Intake & Output 08/24/18 08/24/18 08/25/18 11:59 23:59 11:59 Intake Total 1545.833 / 2505.833 960 / 2505.833 1280 / 1280 Output Total 200 / 200 Balance 1345.833 / 2305.833 960 / 2305.833 1280 / 1280 Intake: IV 1545.833 / 1545.833 Oral 960 / 960 1280 / 1280 Output: Urine 200 / 200 Other: Urine Color Light Kasey Urine Appearance Clear Clear Comment voids independently voids via the toilet independently Stool Size Moderate Stool Characteristics Formed Voiding Methods Urinal Laboratory Results WBC 8.64 k/cumm (4.4-10.8) D 08/24/18 07:18 RBC 4.49 m/cumm (4.50-6.00) L 08/24/18 07:18 Hgb 13.4 g/dL (13.5-17.5) L D 08/24/18 07:18 Hct 41.7 % (40.0-50.0) 08/24/18 07:18 MCV 92.9 fL (80-95) 08/24/18 07:18 MCH 29.8 pg (27.0-33.0) 08/24/18 07:18 MCHC 32.1 g/dL (32.0-36.0) 08/24/18 07:18 RDW 13.2 % (11.8-14.1) 08/24/18 07:18 Plt Count 217 x1000/uL (130-400) 08/24/18 07:18 MPV 9.2 fL (8.0-11.0) 08/24/18 07:18 Immature Gran % 0.2 08/24/18 07:18 Neutrophils % 68.4 08/24/18 07:18 Lymphocytes % 19.2 08/24/18 07:18 Monocytes % 11.0 08/24/18 07:18 Eosinophils % 0.9 08/24/18 07:18 Basophils % 0.3 08/24/18 07:18 Absolute Neutrophils 5.91 k/cumm (1.2-6.7) 08/24/18 07:18 Absolute Lymphocytes 1.66 k/cumm (1.2-3.4) 08/24/18 07:18 Absolute Monocytes 0.95 k/cumm (0.11-0.7) H 08/24/18 07:18 Absolute Eosinophils 0.08 k/cumm (0.0-0.7) 08/24/18 07:18 Absolute Basophils 0.03 k/cumm (0.0-0.2) 08/24/18 07:18 Sodium 146 mmol/L (136-145) H 08/24/18 07:18 Potassium 3.9 mmol/L (3.5-5.1) 08/24/18 07:18 Chloride 110 mmol/L (98-107) H 08/24/18 07:18 Carbon Dioxide 28.1 mmol/L (21.0-32.0) 08/24/18 07:18 Anion Gap 7.9 mmol/L (3-11) 08/24/18 07:18 BUN 24 mg/dL (7-18) H 08/24/18 07:18 Creatinine 1.20 mg/dL (0.70-1.30) 08/24/18 07:18 Estimated GFR/1.73 m2 >= 60.00 (mL/min/1.73m2) 08/24/18 07:18 Glucose 99 mg/dL (70-100) D 08/24/18 07:18 Lactate 1.2 mmol/l (0.6-1.4) 08/24/18 07:18 Calcium 9.0 mg/dL (8.5-10.1) 08/24/18 07:18 Total Bilirubin 1.3 mg/dL (0.2-1.0) H 08/23/18 17:40 AST 13 U/L (15-37) L 08/23/18 17:40 ALT 18 U/L (12-78) 08/23/18 17:40 Alkaline Phosphatase 95 U/L (46-116) 08/23/18 17:40 Total Protein 7.6 g/dL (6.4-8.2) 08/23/18 17:40 Albumin 4.0 g/dL (3.4-5.0) 08/23/18 17:40
[2018-08-25] MEDS: Magnesium Citrate 300 ML BTL PO (11:00)
[2018-08-25 11:42] VITALS: BP 128/77; PULSE 53; RESP 19; TEMP 37.1; O2SAT 94
[2018-08-25 15:55] VITALS: O2SAT 94
--- NOTE | 2018-08-25 16:06 | PDOC.CMDIS ---
- If Service Date Differs Date of service: 08/25/18 Time of Service: 16:06 LACE Index Scoring Tool - Questions: Length of Stay (in days): 2 Acuity (Admit via E.D.?): Yes E.D. Visits: 1 - Answers: Total Score: 6 Risk of Readmission: Low Risk Care Management Discharge Reason for Hospitalization: SBO Discharge Plan: Addy will be discharged home with no services. He will be referred to a tertiary care facility for surgery to repair his hernias (ventral, epigastric and umbilical) once he has been discharged. He will follow up with his PCP and discharge plan of care. His will provide transportation via private automobile. cc: NASRA ROLLE, RAFAELA Patient/Family Education Needs: Discharge plan, limitations, follow up plan of care and Ask Me Three.
[2018-08-25 16:40] VITALS: BP 111/76; PULSE 54; RESP 16; TEMP 36.3; O2SAT 94
[2018-08-26 00:26] VITALS: BP 103/63; PULSE 48; RESP 16; TEMP 36.5; O2SAT 94
--- NOTE | 2018-08-26 06:50 | W.PM.PROGNOT ---
Date of Service Date of service: 08/26/18 Time of Service: 06:50 Assessment and Plan (1) Small bowel obstruction: Current visit: No Status: Acute (2) Abdominal hernia: Current visit: No Status: Acute mult abdominal wall herniations. SBO resolved d/w pt diet and activity. cont bowel program/avoid constipation Referral to [facility] [place]- done by Dr. Pandya If any N/v /obstipation/abdominal pain or distention- return to ED. Subjective Patient reports: tolerating a regular diet, bowel movement and fever Interval history since last seen: pt had BM overnight. If tolerates breakfast- d/c home. F/U w/ Sx at [facility]. Pt is doing well. no headaches. No CP or SOB. no productive cough. no dysuria. no leg pain or swelling. no abdom pain. good BS pt up and walking. tolerating regular diet Exam Const General: cooperative, healthy appearing, comfortable, no acute distress, well developed and well groomed Nutritional Appearance: average body habitus and well nourished Orientation: alert, awake and oriented x3 HENMT Head: normal to inspection, normocephalic and atraumatic Ears: hearing grossly normal bilaterally and external ears normal General nose exam: external nose normal Face and sinus: normal facial exam and sinuses nontender Mouth: oral mucosae normal, lip normal, tongue normal and moist mucous membranes Teeth and gingiva: dentition normal Eyes General: appearance normal, both eyes and all related structures Conjunctivae: conjunctivae normal Sclera: sclerae normal Pupils: PERRL Neck Neck: normal visual inspection and full ROM Chest Chest: normal inspection of the chest Resp Effort & Inspection: normal respiratory effort, able to speak in complete sentences, no cough, no nasal flaring, not tachypneic and no use of accessory muscles Auscultation: clear to auscultation bilaterally, no rales, no rhonchi and no wheezes Cardio Jugular venous pressure: no JVD Rate: regular rate Rhythm: regular rhythm GI Inspection: normal to inspection, no edema, non-distended and visible herniation (x3 . soft min pain) Palpation: soft, no masses, nontender and No ascites Auscultation: normal bowel sounds Skin General skin exam: no rashes or lesions noted Trauma: no lacerations or abrasions Neuro General: alert, oriented x3, oriented, gait normal, moves all extremities, no focal motor deficits and CN's II-XI intact bilaterally Cognition: normal cognition Speech: speech normal Gait: normal gait Motor: muscle tone normal throughout Extrem General: normal to inspection, full ROM and no clubbing, cyanosis or edema Psych Appearance: grossly normal and well kempt Mental Status: mental status grossly normal Speech and Movement: speech and movement normal Affect: normal affect Objective Objective Clinical Data: Vital Signs Temperature 36.5 C 08/26/18 00:26 Temperature Source Tympanic 08/26/18 00:26 Pulse 48 L 08/26/18 00:26 Pulse Rhythm Regular 08/25/18 21:50 Respiratory Rate 16 08/26/18 00:26 Respiratory Effort Non-Labored 08/25/18 21:50 Respiratory Depth Normal 08/25/18 21:50 Respiratory Pattern Normal 08/25/18 21:50 Blood Pressure 103/63 08/26/18 00:26 Blood Pressure Position Sitting 08/23/18 17:31 Pulse Oximetry 94 L 08/26/18 00:26 Oxygen Delivery Method Room Air 08/26/18 00:26 Oxygen Flow Rate 0 08/26/18 00:26 Pain Level 0 08/24/18 23:30 Intake & Output 08/25/18 08/25/18 08/26/18 11:59 23:59 11:59 Intake Total 1280 / 1640 360 / 1640 Balance 1280 / 1640 360 / 1640 Intake: Oral 1280 / 1640 360 / 1640 Other: Urine Color Light Kasey Urine Appearance Clear Clear Urine Odor None None Comment voiding w/o difficulty Stool Size Moderate Moderate Stool Characteristics Formed Liquid Voiding Methods Toilet Toilet Laboratory Results WBC 8.64 k/cumm (4.4-10.8) D 08/24/18 07:18 RBC 4.49 m/cumm (4.50-6.00) L 08/24/18 07:18 Hgb 13.4 g/dL (13.5-17.5) L D 08/24/18 07:18 Hct 41.7 % (40.0-50.0) 08/24/18 07:18 MCV 92.9 fL (80-95) 08/24/18 07:18 MCH 29.8 pg (27.0-33.0) 08/24/18 07:18 MCHC 32.1 g/dL (32.0-36.0) 08/24/18 07:18 RDW 13.2 % (11.8-14.1) 08/24/18 07:18 Plt Count 217 x1000/uL (130-400) 08/24/18 07:18 MPV 9.2 fL (8.0-11.0) 08/24/18 07:18 Immature Gran % 0.2 08/24/18 07:18 Neutrophils % 68.4 08/24/18 07:18 Lymphocytes % 19.2 08/24/18 07:18 Monocytes % 11.0 08/24/18 07:18 Eosinophils % 0.9 08/24/18 07:18 Basophils % 0.3 08/24/18 07:18 Absolute Neutrophils 5.91 k/cumm (1.2-6.7) 08/24/18 07:18 Absolute Lymphocytes 1.66 k/cumm (1.2-3.4) 08/24/18 07:18 Absolute Monocytes 0.95 k/cumm (0.11-0.7) H 08/24/18 07:18 Absolute Eosinophils 0.08 k/cumm (0.0-0.7) 08/24/18 07:18 Absolute Basophils 0.03 k/cumm (0.0-0.2) 08/24/18 07:18 Sodium 146 mmol/L (136-145) H 08/24/18 07:18 Potassium 3.9 mmol/L (3.5-5.1) 08/24/18 07:18 Chloride 110 mmol/L (98-107) H 08/24/18 07:18 Carbon Dioxide 28.1 mmol/L (21.0-32.0) 08/24/18 07:18 Anion Gap 7.9 mmol/L (3-11) 08/24/18 07:18 BUN 24 mg/dL (7-18) H 08/24/18 07:18 Creatinine 1.20 mg/dL (0.70-1.30) 08/24/18 07:18 Estimated GFR/1.73 m2 >= 60.00 (mL/min/1.73m2) 08/24/18 07:18 Glucose 99 mg/dL (70-100) D 08/24/18 07:18 Lactate 1.2 mmol/l (0.6-1.4) 08/24/18 07:18 Calcium 9.0 mg/dL (8.5-10.1) 08/24/18 07:18 Total Bilirubin 1.3 mg/dL (0.2-1.0) H 08/23/18 17:40 AST 13 U/L (15-37) L 08/23/18 17:40 ALT 18 U/L (12-78) 08/23/18 17:40 Alkaline Phosphatase 95 U/L (46-116) 08/23/18 17:40 Total Protein 7.6 g/dL (6.4-8.2) 08/23/18 17:40 Albumin 4.0 g/dL (3.4-5.0) 08/23/18 17:40
[2018-08-26 07:59] VITALS: BP 126/79; PULSE 49; RESP 22; TEMP 35.5; O2SAT 96
[2018-08-26] MEDS: Olopatadine 0.1% OPHTH SOL 5 ML BTL OU (08:23)
[2018-08-26] MEDS: Refresh PLUS Eye Drops 0.4ml OU (08:23)
--- NOTE | 2018-08-29 16:18 | DSE_ITS ---
DS: Diagnosis Discharge Diagnosis (1) Small bowel obstruction: Status: Acute (2) Abdominal hernia: Status: Acute Discharge Plan Disposition Patient Disposition: HOME Condition: Stable Discharge Details Chief Complaint: Abd Prob Reason For Visit: SMALL BOWEL OBSTRUCTION Admit Date/Time: 08/23/18 21:00 Admit Provider: Migdalia Pandya Attending Provider: Migdalia Pandya Primary Care Provider: Mary Ellen Simpson ED Provider: Glenn Martino Home Meds and New Rx's Prescriptions: New Metamucil 3.4 gram/5.4 gram powder 1 tbs PO BID Qty: 660 RF: 0 Continued bisacodyl [Dulcolax (bisacodyl)] 10 mg suppository 10 mg LA DAILY PRN (Reason: constipation) Qty: 4 RF: 0 Fleet Enema Extra 19-7 gram/197 mL enema 197 ml LA ONCE Qty: 460 RF: 2 Discharge Instructions Instructions: High Fiber Diet (GEN) Additional Instructions: -no lifting over 20#'s at work -will do referral to [facility] for minimally invasive hernia surgery -High fiber diet -OK to walk on treadmill. -If develop abdominal pain- stop -metmucil 1-2 times a day for regularity [facility] surgery clinic: [phone] Stand Alone Forms: Nursing Discharge Form Referrals: Migdalia Pandya MD [ [facility] STAFF PHYSICIAN] - 09/06/18 2:00 pm Activity:: no lifting over 20#'s Equipment/Supplies:: No Equipment Needed Diet:: high fiber Discharge Orders Discharge Orders: Discharge Order (Routine); Ordered 08/26/18 Ordered By: Emilie Kilpatrick Discharge Data Discharge Date/Time-TO BE ENTERED AT DEPARTURE: 08/26/18 09:30 DS: Data Vitals/I&O Vitals and I&O: Vital Signs Temperature 35.5 C L 08/26/18 07:59 Temperature Source Tympanic 08/26/18 07:59 Pulse 49 L 08/26/18 07:59 Pulse Rhythm Regular 08/26/18 07:40 Respiratory Rate 22 08/26/18 07:59 Respiratory Effort Non-Labored 08/26/18 07:40 Respiratory Depth Normal 08/26/18 07:40 Respiratory Pattern Normal 08/26/18 07:40 Blood Pressure 126/79 08/26/18 07:59 Blood Pressure Position Sitting 08/23/18 17:31 Pulse Oximetry 96 08/26/18 07:59 Oxygen Delivery Method Room Air 08/26/18 07:59 Oxygen Flow Rate 0 08/26/18 07:59 Pain Level 0 08/24/18 23:30 PFSH Medical History Abdominal hernia (Acute) Umbilical hernia (Acute ~08/24/18) History of alcoholism (Acute) History of tobacco use (Acute) Malrotation of intestine (Acute) Surgical History S/P tonsillectomy and adenoidectomy (Acute) History of hernia repair (Chronic ~1987) Family History Mother Dementia TIA (transient ischemic attack) Father No problems noted. Son Depression Daughter No problems noted. 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
== END 2018-08-26 09:30 | disposition home or self-care (01) | DRG 395 ==
LOC: ER 21:12 → MS 21:56
PROVIDERS: Admitting Provider Surgery; Emergency Provider Emergency Medicine; PCP Internal Medicine; Visit Provider Surgery
DX: K42.0 Umbilical hernia with obstruction, without gangrene (principal); K43.6 Other and unspecified ventral hernia with obstruction, without gangrene
CPT/HCPCS: 36415; 80048; 80053; 96361; 96365; 96375; 99223; 99231; 99232; 99233; 99238; 99285; 74176; 83605; 85025; 99284; J2270; J2405

== ENCOUNTER 2018-09-02 05:59 | Inpatient (IN) | payer MEDICARE, OTHER, SELFPAY ==
[2018-09-02] VITALS (19 sets, daily range): BP systolic 111–145; BP diastolic 74–95; PULSE 56–115; RESP 17–22; TEMP 36.6–37.6; O2SAT 90–95
--- NOTE | 2018-09-02 06:08 | W.ED.GENAD ---
Discharge Plan Disposition Patient Disposition: [facility] INPATIENT Condition: Poor Discharge Details Chief Complaint: Abd Prob Clinical Impression: SBO (small bowel obstruction) Primary Care Provider: Mary Ellen Simpson ED Provider: Mason Chaparro [place] Meds and New Rx's Prescriptions: No Action bisacodyl [Dulcolax (bisacodyl)] 10 mg suppository 10 mg IN DAILY PRN (Reason: constipation) Qty: 4 RF: 0 Fleet Enema Extra 19-7 gram/197 mL enema 197 ml IN ONCE Qty: 460 RF: 2 Metamucil 3.4 gram/5.4 gram powder 1 tbs PO BID Qty: 660 RF: 0 Medical Decision Making Patient returns with recurrent symptoms suggestive of bowel obstruction. He has a tender abdomen but will not allow deep palpation to determine if hernia has become incarcerated again. Will place IV and start fluids. Recheck labs. Give fentanyl for pain and then attempt repalpation of the abdomen. Consider repeat CT scan. 6:50 - Patient given fentanyl with decent pain relief. Able to palpate abdomen. Cannot fully appreciate hernia at this point. Repeat CT scan. Lactate and WBC only minimally elevated. 7:40 - Rest of labs are okay. Patient CT scan shows high grade bowel obstruction once again, but not due to hernia. NGT ordered. Discussed with surgery. Admit to Dr. Hernandez. Medical Records Medical records reviewed: Yes I reviewed the patient's medical records. Lab Data Lab results reviewed: Yes I reviewed the patient's lab results. HPI General Mode of arrival: ambulatory. Date/Time Provider Initiated Documentation: 09/02/18 06:06. Limitations to Documentation: no limitations. Information obtained by: patient, RN notes reviewed and old records reviewed. HPI Narrative: Patient presents to ED with increasing abdominal pain, vomiting. Patient discharged last week after an admission for small bowel obstruction secondary to hernia which was reduced. He was treated conservatively and obstruction resolved once the hernia was reduced. He has had recurrent pain for the last 2 days. He has not been passing gas having bowel movements. He has been vomiting and unable to keep anything down. Feels that the pain is worse this time around than last. Finally came in this morning for evaluation. Denies fever, chest pain, shortness of breath, difficulty urinating. Related Data Home Medications Medication Instructions Recorded Confirmed bisacodyl 10 mg rectal suppository 10 mg IN DAILY PRN #4 each 08/23/18 08/23/18 sodium phosphates 19 gram-7 197 ml IN ONCE #460 ml 08/23/18 08/23/18 gram/197 mL enema psyllium husk [Metamucil] 1 tbs PO BID #660 gm 08/26/18 Previous Rx's Medication Instructions Recorded bisacodyl 10 mg rectal suppository 10 mg IN DAILY PRN #4 each 08/23/18 sodium phosphates 19 gram-7 197 ml IN ONCE #460 ml 08/23/18 gram/197 mL enema psyllium husk [Metamucil] 1 tbs PO BID #660 gm 08/26/18 Allergies Allergy/AdvReac Type Severity Reaction Status Date / Time No Known Allergies Allergy Verified 08/23/18 17:59 General SERGIO: 3 Review of Systems Review of Systems 02/13 Review of Systems completed and is negative except as stated above in HPI (Systems reviewed: Const, Eyes, ENT, Resp, CV, GI, , MSK, Skin, Neuro) PFSH Medical History Abdominal hernia (Chronic) Umbilical hernia (Chronic ~08/24/18) Malrotation of intestine (Chronic) History of alcoholism (Resolved) History of tobacco use (Resolved) Surgical History S/P tonsillectomy and adenoidectomy (Resolved) History of hernia repair (Chronic ~1987) Social History Smoking/Tobacco Use Status: Former Tobacco Use Tobacco: How many years used: 18 Alcohol Intake: former Year quit: 1984 Drug use: Never Substance use type: does not use Household members: spouse Number of Children: 2 Pets and animals: Yes Pets and animals: cat(s) and dog(s) What is your relationship status?: Panel score (0-1 are the most socially isolated patients): 1 What type of physical activity do you participate in: none Seatbelt use: always 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 Const: WDWN elderly male in NAD. HEENT: NC/AT. Normal facial exam. Eyes: Normal conjunctiva and sclera. Neck: Supple. Trachea midline. Lungs: Normal respiratory effort. Lungs are clear. Cor: RRR without murmur/gallop. Good radial pulses. GI: Soft. Large scar left side of abdomen. Tender but refuses deep palpation due to pain. Neuro: A+O x 3. CN grossly in tact. Good strength and no focal deficit. Ext: No C/C/E. No deformity or tenderness. Skin: Warm and dry without rash.
--- NOTE | 2018-09-02 06:24 | ED.GENADUL_ITS ---
Discharge Plan Disposition Patient Disposition: [facility] INPATIENT Condition: Poor Discharge Details Chief Complaint: Abd Prob Clinical Impression: SBO (small bowel obstruction) Primary Care Provider: Mary Ellen Simpson ED Provider: Mason Chaparro [place] Meds and New Rx's Prescriptions: No Action bisacodyl [Dulcolax (bisacodyl)] 10 mg suppository 10 mg NM DAILY PRN (Reason: constipation) Qty: 4 RF: 0 Fleet Enema Extra 19-7 gram/197 mL enema 197 ml NM ONCE Qty: 460 RF: 2 Metamucil 3.4 gram/5.4 gram powder 1 tbs PO BID Qty: 660 RF: 0 Medical Decision Making Patient returns with recurrent symptoms suggestive of bowel obstruction. He has a tender abdomen but will not allow deep palpation to determine if hernia has become incarcerated again. Will place IV and start fluids. Recheck labs. Give fentanyl for pain and then attempt repalpation of the abdomen. Consider repeat CT scan. 6:50 - Patient given fentanyl with decent pain relief. Able to palpate abdomen. Cannot fully appreciate hernia at this point. Repeat CT scan. Lactate and WBC only minimally elevated. 7:40 - Rest of labs are okay. Patient CT scan shows high grade bowel obstruction once again, but not due to hernia. NGT ordered. Discussed with surgery. Admit to Dr. Hernandez. Medical Records Medical records reviewed: Yes I reviewed the patient's medical records. Lab Data Lab results reviewed: Yes I reviewed the patient's lab results. HPI General Mode of arrival: ambulatory . Date/Time Provider Initiated Documentation: 09/02/18 06:06 . Limitations to Documentation: no limitations . Information obtained by: patient, RN notes reviewed and old records reviewed . HPI Narrative: Patient presents to ED with increasing abdominal pain, vomiting. Patient discharged last week after an admission for small bowel obstruction secondary to hernia which was reduced. He was treated conservatively and obstruction resolved once the hernia was reduced. He has had recurrent pain for the last 2 days. He has not been passing gas having bowel movements. He has been vomiting and unable to keep anything down. Feels that the pain is worse this time around than last. Finally came in this morning for evaluation. Denies fever, chest pain, shortness of breath, difficulty urinating. Related Data Home Medications Medication Instructions Recorded Confirmed bisacodyl 10 mg rectal suppository 10 mg NM DAILY PRN #4 each 08/23/18 08/23/18 sodium phosphates 19 gram-7 197 ml NM ONCE #460 ml 08/23/18 08/23/18 gram/197 mL enema psyllium husk [Metamucil] 1 tbs PO BID #660 gm 08/26/18 Previous Rx's Medication Instructions Recorded bisacodyl 10 mg rectal suppository 10 mg NM DAILY PRN #4 each 08/23/18 sodium phosphates 19 gram-7 197 ml NM ONCE #460 ml 08/23/18 gram/197 mL enema psyllium husk [Metamucil] 1 tbs PO BID #660 gm 08/26/18 Allergies Allergy/AdvReac Type Severity Reaction Status Date / Time No Known Allergies Allergy Verified 08/23/18 17:59 General SERGIO: 3 Review of Systems Review of Systems 02/13 Review of Systems completed and is negative except as stated above in HPI (Systems reviewed: Const, Eyes, ENT, Resp, CV, GI, , MSK, Skin, Neuro) PFSH Medical History Abdominal hernia (Chronic) Umbilical hernia (Chronic ~08/24/18) Malrotation of intestine (Chronic) History of alcoholism (Resolved) History of tobacco use (Resolved) Surgical History S/P tonsillectomy and adenoidectomy (Resolved) History of hernia repair (Chronic ~1987) Social History Smoking/Tobacco Use Status: Former Tobacco Use Tobacco: How many years used: 18 Alcohol Intake: former Year quit: 1984 Drug use: Never Substance use type: does not use Household members: spouse Number of Children: 2 Pets and animals: Yes Pets and animals: cat(s) and dog(s) What is your relationship status?: Panel score (0-1 are the most socially isolated patients): 1 What type of physical activity do you participate in: none Seatbelt use: always Drive intox or ride w/intox class c driver: No Working smoke detector in home: Yes Carbon monox detector in home: Yes Do you feel safe at home: Yes Do you feel safe in your relationship?: Yes Exam Narrative Exam Narrative: Vitals: He is hypertensive and tachycardic. Const: WDWN elderly male in NAD. HEENT: NC/AT. Normal facial exam. Eyes: Normal conjunctiva and sclera. Neck: Supple. Trachea midline. Lungs: Normal respiratory effort. Lungs are clear. Cor: RRR without murmur/gallop. Good radial pulses. GI: Soft. Large scar left side of abdomen. Tender but refuses deep palpation due to pain. Neuro: A+O x 3. CN grossly in tact. Good strength and no focal deficit. Ext: No C/C/E. No deformity or tenderness. Skin: Warm and dry without rash.
[2018-09-02] MEDS: Lactated Ringers 1,000 ML 125 ML IV ×4 (06:25→23:58)
[2018-09-02] MEDS: fentaNYL 100 MCG/2 ML VIAL 50 MCG IVP ×5 (06:32→10:50)
[2018-09-02 06:39] LABS: Lactate 1.5 mmol/L (0.6-1.4)
[2018-09-02 06:40] LABS: Abs Immature Grans 0.02 k/cumm (0.0-0.09); Absolute Basophil Count 0.04 k/cumm (0.0-0.2); Absolute Monocyte Count 1.02 k/cumm (0.11-0.7); Absolute Neutrophil Count 9.72 k/cumm (1.2-6.7); Basophils % 0.3; Eosinophils % 0.3; HCT 49.4 % (40.0-50.0); HGB 16.6 g/dL (13.5-17.5); Immature Grans % 0.2; Lymphocytes % 9.4; Mean Corp. HGB Concentration 33.6 g/dL (32.0-36.0); Mean Corpuscular Hemoglobin 30.1 pg (27.0-33.0); Mean Corpuscular Volume 89.7 fL (80-95); Mean Platelet Volume 9.6 fL (8.0-11.0); Monocytes % 8.5; Neutrophils % 81.3; Platelet Count 320 x1000/uL (130-400); RBC 5.51 m/cumm (4.50-6.00); White Blood Cell Count 11.96 k/cumm (4.4-10.8)
[2018-09-02 06:42] LABS: Absolute Eosinophil Count 0.04 k/cumm (0.0-0.7); Absolute Lymphocyte Count 1.12 k/cumm (1.2-3.4)
--- NOTE | 2018-09-02 06:50 | DI.CT_ITS ---
SYMPTOM/DIAGNOSIS: ABD PAIN, VOMITING, RECENT SMALL BOWEL OBSTRUCTION ABDOMEN AND PELVIC CT: CT examination of the abdomen and pelvis was performed without contrast administration. Images obtained through the lung bases are unremarkable. Liver, spleen and pancreas are grossly unremarkable by noncontrast criteria. Gallbladder and bile ducts are CT normal. There are at least three anterior abdominal wall hernias which are fat containing. The umbilical hernia which was previously noted to contain an obstructed small bowel loop persists but only contains mesenteric fat. The previously noted obstructed small bowel loop appears to have rotated with associated mesentery and now lies intra-abdominally but appears to again be obstructed. The distal small bowel is non dilated as is the colon. The kidneys and adrenals are unremarkable except an incidental non obstructing right lower pole renal calculus. Appendix is normal. No evidence of diverticulitis. CONCLUSION: Findings consistent with small bowel obstruction. Please see above discussion.
[2018-09-02 06:56] LABS: ALT 21 U/L (12-78); AST 12 U/L (15-37); Albumin 3.7 g/dL (3.4-5.0); Alkaline Phosphatase 93 U/L (46-116); Anion Gap 10.8 mmol/L (3-11); BUN 17 mg/dL (7-18); Bilirubin, Total 1.1 mg/dL (0.2-1.0); CO2 26.2 mmol/L (21.0-32.0); CREATININE 1.26 mg/dL (0.70-1.30); Calcium 9.3 mg/dL (8.5-10.1); Chloride 104 mmol/L (98-107); Estimated GFR 57.08 (mL/min/1.73m2); Glucose 176 mg/dL (70-100); Lipase 59 U/L (73-393); Potassium 3.8 mmol/L (3.5-5.1); Sodium 141 mmol/L (136-145); Total Protein 7.1 g/dL (6.4-8.2)
--- NOTE | 2018-09-02 08:51 | HPE_ITS ---
Date of service: 09/02/18 Time of Service: 08:51 Assessment and Plan (1) Small bowel obstruction: Current visit: No Status: Acute 67 y/o male admitted with a recurrent small bowel obstruction. He has 3 midline hernia defects. A loop of small bowl had been incarcerated but was able to be reduced ~ 1.5 weeks ago. There does not appear to be any hernia incarceration on this admission. However, there does appear to be a small bowel obstruction likely due to adhesions. Will manage conservatively with NG decompression and bowel rest for now. Rehydrate with IVF. May have ice chips but otherwise NPO. Follow-up abdominal xrays and labs in am. Plans reviewed with patient and . All questions answered. They appeared to understand and agree with the discussion as outlined above. (2) Abdominal hernia: Current visit: No Status: Chronic 67 y/o male with 3 midline ventral hernia defects. He has a h/o abdominal surgery as an with a left paramedian scar and remote history of hernia repair through that scar. Following his recent admission, the plan was for outpatient referral to a minimally invasive surgeon at [facility] for a possible laparoscopic hernia repair. We discussed that plans for surgery/ hernia repair will depend on his clinical course. If his symptoms fail to resolve or continue to recur with conservative management, then we may need to consider proceeding with surgical exploration and hernia repair on this admission. Further recommendations pending course. All questions answered. As above. History of Present Illness Chief Complaint: Abdominal pain/ vomiting Narrative: 67 y/o male admitted through the ED with recurrent SBO. He is seen with his at the bedside. Patient has a h/o abdominal surgery as an reportedly for malrotation. He has a left paramedian scar. In 1988 (30 years ago), he had a ventral hernia repaired through the same incision. Patient was hospitalized at [facility] from 08/23/18 - 08/26/18 for a small bowel obstruction associated with a loop of small bowel in a midline umbilical hernia. The hernia was able to be reduced in the ED and the patient was observed for a few days until his symptoms resolved. Patient actually noted to have 3 midline ventral hernia defects in the epigastric, supraumbilical, and umbilical areas on CT. On repeat CT films today, there is noted to be omental fat/mesentery in the hernia sacs but no bowel. There does appear to be persistent/ recurrent SBO. Films and prelim report reviewed. Patient notes that he had recurrent vomiting and abdominal pain 2 days ago. Last flatus/ BM was yesterday. He did not eat or drink yesterday or today for fear of vomiting. He notes his abdomen is tender. WBC ~ 12. Lactate - 1.5. Review of Systems Review of Systems All systems reviewed & are unremarkable except as noted in HPI and below Constitutional Denies chills and Denies fever(s) Cardiovascular Denies chest pain, Denies rapid heart rate and Denies dyspnea Respiratory Denies cough and Denies dyspnea Gastrointestinal Reports abdominal pain, Denies melena, Denies hematochezia and Reports vomiting PFS Medical History Abdominal hernia (Chronic) Umbilical hernia (Chronic ~08/24/18) Malrotation of intestine (Chronic) History of alcoholism (Resolved) History of tobacco use (Resolved) Surgical History S/P tonsillectomy and adenoidectomy (Resolved) History of hernia repair (Chronic ~1987) Family History Mother Dementia TIA (transient ischemic attack) Father No problems noted. Son Depression Daughter No problems noted. Social History Smoking/Tobacco Use Status: Former Tobacco Use Tobacco: How many years used: 18 Alcohol Intake: former Year quit: 1984 Drug use: Never Substance use type: does not use Household members: spouse Number of Children: 2 Pets and animals: Yes Pets and animals: cat(s) and dog(s) What is your relationship status?: Panel score (0-1 are the most socially isolated patients): 1 What type of physical activity do you participate in: none Seatbelt use: always Drive intox or ride w/intox medical driver: No Working smoke detector in home: Yes Carbon monox detector in home: Yes Do you feel safe at home: Yes Do you feel safe in your relationship?: Yes Meds Home Medications Medication Instructions Recorded Confirmed Type bisacodyl 10 mg rectal suppository 10 mg DC DAILY PRN #4 each 08/23/18 09/02/18 Rx sodium phosphates 19 gram-7 197 ml DC ONCE #460 ml 08/23/18 09/02/18 Rx gram/197 mL enema psyllium husk [Metamucil] 1 tbs PO BID #660 gm 08/26/18 Rx Allergies Allergy/AdvReac Type Severity Reaction Status Date / Time No Known Allergies Allergy Verified 08/23/18 17:59 Exam Const General: cooperative and no acute distress Nutritional Appearance: obese Orientation: alert and oriented x3 HENMT Head: normocephalic and atraumatic General nose exam: other (NG tube in place - draining minimal bilious green fluid) Eyes Sclera: sclerae normal Resp Effort & Inspection: normal respiratory effort and able to speak in complete sentences Cardio Jugular venous pressure: no JVD Rate: regular rate Rhythm: regular rhythm GI Inspection: obesity and scar (left paramedian) Palpation: soft (no induration or color change noted at hernia sites), not firm, no guarding, hernia (midline defects - epigastrium/supraumbilical/umbilical; not incarcerated), no masses and tender (mildly tender but partially reducible midline hernias) Auscultation: hypoactive bowel sounds Skin General skin exam: no rashes or lesions noted and no jaundice Neuro General: alert Speech: speech normal Results Imaging Abdomen CT scan report/results: report reviewed and image reviewed CT scan - pelvis: report reviewed and image reviewed Imaging Studies: Patient Name: SCARLET LANGE #: [id number]: MS Ordering Provider: Mason Chaparro M.D. : ADM IN Primary Care Provider: Mary Ellen Simpson M.D.Date of Exam: 09/02/18Sex: M : 1Age: 67 Exam(s) a CT:CT abdomen & pelvis wo SYMPTOM/DIAGNOSIS: ABD PAIN, VOMITING, RECENT SMALL BOWEL OBSTRUCTION ABDOMEN AND PELVIC CT: CT examination of the abdomen and pelvis was performed without contrast administration. Images obtained through the lung bases are unremarkable. Amberly er, spleen and pancreas are grossly unremarkable by noncontrast criteria. Gallbladder and bile ducts are CT normal. There are at least three anterior abdominal wall hernias which are fat containing. The umbilical hernia which was previously noted to contain an obstructed small bowel loop persists but only contains mesenteric fat. The previously noted obstructed small bowel loop appears to have rotated with associated mesentery and now lies intra-abdominally but appears to again be obstructed. The distal small bowel is non dilated as is the colon. The kidneys and adrenals are unremarkable except an incidental non obstructing right lower pole renal calculus. Appendix is normal. No evide nce of diverticulitis. CONCLUSION: Findings consistent with small bowel obstruction. Please see above discussion. [id number]: Total DLP = 0.00 mGy-cm Ordered By: Mason Chaparro M.D. CC: Dictated By: Glenn Myrick M.D. 09/02/18 0723 Transcribed By: Lyn Mercado 09/02/18 0856 This is privileged, confidential information intended only for the provider named. Any use or distribution by any person other than this provider is strictl y prohibited. If you receive this report in error, please notify us immediately at [phone] and return the original report to us at the address above. Thank-you. Labs : 09/02/18 06:25 09/02/18 06:25 Laboratory Results - last 24 hr 09/02/18 09/02/18 09/02/18 06:25 06:25 06:25 WBC 11.96 H RBC 5.51 Hgb 16.6 Hct 49.4 MCV 89.7 MCH 30.1 MCHC 33.6 RDW 13.0 Plt Count 320 D MPV 9.6 Immature Gran % 0.2 Neutrophils % 81.3 Lymphocytes % 9.4 Monocytes % 8.5 Eosinophils % 0.3 Basophils % 0.3 Absolute Neutrophils 9.72 H Absolute Lymphocytes 1.12 L Absolute Monocytes 1.02 H Absolute Eosinophils 0.04 Absolute Basophils 0.04 Sodium 141 Potassium 3.8 Chloride 104 Carbon Dioxide 26.2 Anion Gap 10.8 BUN 17 Creatinine 1.26 Estimated GFR/1.73 m2 57.08 Glucose 176 H Lactate 1.5 H Calcium 9.3 Total Bilirubin 1.1 H AST 12 L ALT 21 Alkaline Phosphatase 93 Total Protein 7.1 Albumin 3.7 Lipase 59 L Last Vital Signs Temp 37.6 C H 09/02/18 06:13 Pulse 89 09/02/18 08:01 Resp 22 09/02/18 06:13 BP 121/81 09/02/18 08:01 Pulse Ox 93 L 09/02/18 08:01
[2018-09-02] MEDS: Ketorolac 30 MG/ML VIAL 15 MG IVP (09:29)
[2018-09-02] MEDS: Normal Saline Flush 10 ML SYR IVP ×2 (09:30→10:50)
--- NOTE | 2018-09-02 12:04 | PHARADMIT ---
Addendum entered by Andrew Cuevas III 09/05/18 16:44: Pharmacy Note Subjective patient continues to improve, provider wants to wait one more day. Objective VS-OK no labs Assessment no changes Plan Plan for discharge tomorrow if tolerates diet Addendum entered by Selin Dill 09/04/18 14:02: Pharmacy Note Subjective advancing diet to full liquids Objective VS okay no labs Assessment fentanyl discontinued, IV fluids rate decreased Plan continue to watch VS labs and for med changes Original Note: Admission Pharmacy Clinical Review SBO Code Status Full Code Current Weight 105.8 kg Renally Cleared and Narrow Therapeutic Index Meds Crcl ~66.0 mL/min using adjusted body weight current meds okay QTc Value / Action Taken n/a BP Control, Fever BP 145/94 afebrile Electrolytes reviewed within normal limits DVT Prophylaxis none Opiate Usage / Scheduled Bowel Regimen Ordered prn/none Plt/SCr for Heparin / Enoxaparin plt 320 SCr 1.26 INR for Warfarin n/a H/H stable, WBC/Bands h/h 16.6/49.4 wbc 11.96 Antibiotic appropriateness n/a Cultures and Sensitivities none Surgical ABX d/c within 24 hr n/a DM control / Insulin Dosing BG 176 none Heart Failure (Check EF%) (DELROY's, B-Block, Diuretics) none IV to PO Switch n/a Home Meds Reviewed yes Home Meds Not Ordered bisacodyl, psyllium husk, sodium phosphate enema Comments
[2018-09-03] MEDS: Lactated Ringers 1,000 ML 125 ML IV (06:15)
--- NOTE | 2018-09-03 07:00 | DI.RAD_ITS ---
SYMPTOM/DIAGNOSIS: SMALL BOWEL OBSTRUCTION ABDOMEN: Four views were obtained. There is an NG tube in the stomach. There is mildly decreased small bowel dilatation in comparison with yesterday's CT examination. No other significant change noted.
[2018-09-03 07:18] VITALS: BP 129/86; PULSE 72; RESP 19; TEMP 36.6; O2SAT 95
[2018-09-03 07:19] LABS: Lactate-non-spesis 0.9 mmol/l (0.6-1.4)
[2018-09-03 07:20] LABS: HCT 45.3 % (40.0-50.0); HGB 14.8 g/dL (13.5-17.5); Mean Corp. HGB Concentration 32.7 g/dL (32.0-36.0); Mean Corpuscular Hemoglobin 29.9 pg (27.0-33.0); Mean Corpuscular Volume 91.5 fL (80-95); Mean Platelet Volume 9.6 fL (8.0-11.0); Platelet Count 266 x1000/uL (130-400); RBC 4.95 m/cumm (4.50-6.00); RBC Distribution Width 13.1 % (11.8-14.1); White Blood Cell Count 9.15 k/cumm (4.4-10.8)
[2018-09-03 07:28] LABS: Anion Gap 6.2 mmol/L (3-11); BUN 20 mg/dL (7-18); CO2 28.8 mmol/L (21.0-32.0); CREATININE 1.12 mg/dL (0.70-1.30); Chloride 107 mmol/L (98-107); Glucose 102 mg/dL (70-100); Potassium 3.8 mmol/L (3.5-5.1); Sodium 142 mmol/L (136-145)
--- NOTE | 2018-09-03 09:18 | DI.VRAD_ITS ---
EXAM: XR Abdomen, 2 Views EXAM DATE/TIME: 09/03/2018 12:00 AM CLINICAL HISTORY: 68 years old, male; Signs and symptoms; Other: Small bowel obstruction TECHNIQUE: Imaging protocol: Frontal view of the abdomen/pelvis with upright view of the abdomen. COMPARISON: CT ABDOMEN PELVIS WO 09/02/2018 7:13 AM FINDINGS: Tubes, catheters and devices: An enteric feeding tube is present, with its tip located in the stomach in good position. Gastrointestinal tract: A few dilated loops of bowel may represent early obstruction or ileus. Improved appearance compared to August 3. Intraperitoneal space: Normal. No free air. Bones/joints: Unremarkable for age. IMPRESSION: 1. An enteric feeding tube is present, with its tip located in the stomach in good position. 2. A few dilated loops of bowel may represent early obstruction or ileus. Improved appearance compared to August 3. Dictated and Authenticated by: Tanner Abrams MD. Ordering:PRADEEP Nava MD
[2018-09-03] MEDS: Pantoprazole 40 MG VIAL IVP (09:36)
[2018-09-03] MEDS: Normal Saline Flush 10 ML SYR IVP (09:36)
--- NOTE | 2018-09-03 11:39 | W.PM.PROGNOT ---
Date of Service Date of service: 09/03/18 Time of Service: 14:35 Assessment and Plan (1) Small bowel obstruction: Current visit: No Status: Acute 68 y/o male with recurrent small bowel obstruction. (+) flatus. WBC normalized. Labs reviewed. Pain resolved. Will trial clear liquids with NG clamped. If low residual, will d/c NG this evening. If high residual, will resume NPO with NG to low intermittent suction. All questions answered. Patient and agreeable with plans. Subjective Interval history since last seen: Patient seen with at bedside. Reports flatus overnight but no BM. Denies abdominal pain this am. NG output was gastroccult (+) per nurse. Added Protonix. AXR improved bowel gas pattern per radiology. Exam Const General: cooperative, comfortable and no acute distress Nutritional Appearance: obese Orientation: alert and oriented x3 HENMT Head: normocephalic, atraumatic and other Resp Effort & Inspection: normal respiratory effort and able to speak in complete sentences GI Inspection: non-distended Palpation: soft, not firm, no guarding and nontender Auscultation: hypoactive bowel sounds Other: NG - yellowish-brown drainage Objective Objective Clinical Data: Abnormal lab results 09/03/18 Range/Units 07:02 BUN 20 H (7-18) mg/dL Glucose 102 H D (70-100) mg/dL Vital Signs Temperature 36.6 C 09/03/18 07:18 Temperature Source Tympanic 09/03/18 07:18 Pulse 72 09/03/18 07:18 Pulse Rhythm Regular 09/03/18 07:45 Respiratory Rate 19 09/03/18 07:18 Respiratory Effort Non-Labored 09/03/18 07:45 Respiratory Depth Normal 09/03/18 07:45 Respiratory Pattern Normal 09/03/18 07:45 Blood Pressure 129/86 09/03/18 07:18 Blood Pressure Mean 85 09/02/18 08:01 Pulse Oximetry 95 09/03/18 07:18 Oxygen Delivery Method Room Air 09/03/18 07:18 Oxygen Flow Rate 0 09/03/18 07:18 Pain Level 3 09/02/18 10:50 Intake & Output 09/02/18 09/02/18 09/03/18 11:59 23:59 11:59 Intake Total 814.167 / 2735.334 1921.167 / 2735.334 795.417 / 795.417 Output Total 100 / 950 850 / 950 400 / 400 Balance 714.167 / 5691.684 9440.167 / 1785.334 395.417 / 395.417 Weight 105.8 kg Intake: IV 694.167 / 2375.334 1681.167 / 2375.334 795.417 / 795.417 Oral 120 / 360 240 / 360 Output: Gastric Drainage 100 / 750 650 / 750 400 / 400 Right Nare 100 / 750 650 / 750 400 / 400 Urine 200 / 200 Other: Urine Color Dark Kasey Urine Appearance Clear Urine Odor Normal 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 emptied his urinal at 0600 Voiding Methods Urinal Laboratory Results WBC 9.15 k/cumm (4.4-10.8) 09/03/18 07:02 RBC 4.95 m/cumm (4.50-6.00) 09/03/18 07:02 Hgb 14.8 g/dL (13.5-17.5) 09/03/18 07:02 Hct 45.3 % (40.0-50.0) 09/03/18 07:02 MCV 91.5 fL (80-95) 09/03/18 07:02 MCH 29.9 pg (27.0-33.0) 09/03/18 07:02 MCHC 32.7 g/dL (32.0-36.0) 09/03/18 07:02 RDW 13.1 % (11.8-14.1) 09/03/18 07:02 Plt Count 266 x1000/uL (130-400) 09/03/18 07:02 MPV 9.6 fL (8.0-11.0) 09/03/18 07:02 Immature Gran % 0.2 09/02/18 06:25 Neutrophils % 81.3 09/02/18 06:25 Lymphocytes % 9.4 09/02/18 06:25 Monocytes % 8.5 09/02/18 06:25 Eosinophils % 0.3 09/02/18 06:25 Basophils % 0.3 09/02/18 06:25 Absolute Neutrophils 9.72 k/cumm (1.2-6.7) H 09/02/18 06:25 Absolute Lymphocytes 1.12 k/cumm (1.2-3.4) L 09/02/18 06:25 Absolute Monocytes 1.02 k/cumm (0.11-0.7) H 09/02/18 06:25 Absolute Eosinophils 0.04 k/cumm (0.0-0.7) 09/02/18 06:25 Absolute Basophils 0.04 k/cumm (0.0-0.2) 09/02/18 06:25 Sodium 142 mmol/L (136-145) 09/03/18 07:02 Potassium 3.8 mmol/L (3.5-5.1) 09/03/18 07:02 Chloride 107 mmol/L (98-107) 09/03/18 07:02 Carbon Dioxide 28.8 mmol/L (21.0-32.0) 09/03/18 07:02 Anion Gap 6.2 mmol/L (3-11) 09/03/18 07:02 BUN 20 mg/dL (7-18) H 09/03/18 07:02 Creatinine 1.12 mg/dL (0.70-1.30) 09/03/18 07:02 Estimated GFR/1.73 m2 >= 60.00 (mL/min/1.73m2) 09/03/18 07:02 Glucose 102 mg/dL (70-100) H D 09/03/18 07:02 Lactate 0.9 mmol/l (0.6-1.4) 09/03/18 07:02 Calcium 9.0 mg/dL (8.5-10.1) 09/03/18 07:02 Total Bilirubin 1.1 mg/dL (0.2-1.0) H 09/02/18 06:25 AST 12 U/L (15-37) L 09/02/18 06:25 ALT 21 U/L (12-78) 09/02/18 06:25 Alkaline Phosphatase 93 U/L (46-116) 09/02/18 06:25 Total Protein 7.1 g/dL (6.4-8.2) 09/02/18 06:25 Albumin 3.7 g/dL (3.4-5.0) 09/02/18 06:25 Lipase 59 U/L (73-393) L 09/02/18 06:25 Objective Narrative Objective Narrative: Patient Name: SCARLET LANGE #: [id number]: MS Ordering Provider: : ADM IN Primary Care Provider: Mary Ellen Simpson M.D.Date of Exam: 09/03/18Sex: [place] : 1950ge: 68 Exam(s) EXAM: XR Abdomen, 2 Views EXAM DATE/TIME: 09/03/2018 12:00 AM CLINICAL HISTORY: 68 years old, male; Signs and symptoms; Other: Small bowel obstruction TECHNIQUE: Imaging protocol: Frontal view of the abdomen/pelvis with upright view of the abdomen. COMPARISON: CT ABDOMEN PELVIS WO 09/02/2018 7:13 AM FINDINGS: Tubes, catheters and devices: An enteric feeding tube is present, with its tip located in the stomach in good position. Gastrointestinal tract: A few dilated loops of bowel may represent early obstruction or ileus. Improved appearance compared to August 3. Intraperitoneal space: Normal. No free air. Bones/joints: Unremarkable for age. IMPRESSION: 1. An enteric feeding tube is present, with its tip located in the stomach in good position. 2. A few dilated loops of bowel may represent early obstruction or ileus. Improved appearance compared to August 3. Dictated and Authenticated by: Tanner Abrams MD. Ordering:PRADEEP Nava MD Ordered By: CC: Dictated By: Reports vrad 09/03/18 0000 09/03/18 0918 Transcribed By: Sheeba Blanton This is privileged, confidential information intended only for the provider named. Any use or distribution by any person other than this provider is strictly prohibited. If you receive this report in error, please notify us immediately at [phone] and return the original report to us at the address above. Thank-you.
[2018-09-03] MEDS: Lactated Ringers 1,000 ML 150 ML IV (12:58)
--- NOTE | 2018-09-03 13:17 | PDOC.CMIN ---
- If Service Date Differs Date of service: 09/03/18 Time of Service: 13:17 Care Management Initial Assess REASON FOR HOSPITALIZATION:: SBO PAST MEDICAL HISTORY/PAST SURGICAL HISTORY:: Malrotation of intestine, abdominal hernia, umbilical hernia, small bowel obstruction, history alcoholism resolved, tobacco use resolved. Surgical history includes tonsillectomy, adenoidectomy, and ventral hernia repair. PREVIOUS FUNCTIONAL STATUS/SOCIAL/FAMILY SUPPORTS:: Homer and his live in [place] in a large [facility] home that has 3 floors. 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 He is independent with ADLs and continues to drive. The [facility] have 2 adult children ages 26 and 28 who are supportive. CURRENT FUNCTIONAL STATUS:: Homer is ambulating frequently in the halls, he has an NG tube in place, is receiving IV pain management and fluids. Reviewed readmission with Pt he states was unable to see provider prior to returning to inpatient. He is hopeful he will have resoulution to SBO before he returns home. ADVANCE DIRECTIVES:: None on file, patient has the forms Has patient been provided with information about the portal?: Yes Did the patient sign up for the portal?: No CODE STATUS:: Full Code INSURANCE COVERAGE / FINANCIAL ISSUES:: [facility] CURRENT HOME/COMMUNITY SERVICES/EQUIPMENT:: No current services PRIMARY CARE PHYSICIAN:: Dr. Simpson. POTENTIAL DISCHARGE NEEDS:: Follow-up with surgical services, anticipate referral to tertiary center. PATIENT/FAMILY EDUCATION NEEDS:: Discharge education, limitations, follow-up plan of care, asked me 3 and self-management. ANTICIPATED BARRIERS TO DISCHARGE:: Resolution of small bowel obstruction, ability to tolerate oral intake. TRANSPORTATION:: Via private car with spouse at time of discharge. PLAN:: Homer is currently receiving IV fluids and pain management, and NG tube in place. Surgical services are managing his care. Anticipate no additional services at time of discharge and referral to tertiary center. CM to continue to provide support to patient and family discharge planning and disposition.
--- NOTE | 2018-09-03 13:24 | INITIAL_ITS ---
- If Service Date Differs Date of service: 09/03/18 Time of Service: 13:17 Care Management Initial Assess REASON FOR HOSPITALIZATION:: SBO PAST MEDICAL HISTORY/PAST SURGICAL HISTORY:: Malrotation of intestine, abdominal hernia, umbilical hernia, small bowel obstruction, history alcoholism resolved, tobacco use resolved. Surgical history includes tonsillectomy, adenoidectomy, and ventral hernia repair. PREVIOUS FUNCTIONAL STATUS/SOCIAL/FAMILY SUPPORTS:: Homer and his live in [place] in a large [facility] home that has 3 floors. 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 He is independent with ADLs and continues to drive. The [facility] have 2 adult children ages 26 and 28 who are supportive. CURRENT FUNCTIONAL STATUS:: Homer is ambulating frequently in the halls, he has an NG tube in place, is receiving IV pain management and fluids. Reviewed readmission with Pt he states was unable to see provider prior to returning to inpatient. He is hopeful he will have resoulution to SBO before he returns home. ADVANCE DIRECTIVES:: None on file, patient has the forms Has patient been provided with information about the portal?: Yes Did the patient sign up for the portal?: No CODE STATUS:: Full Code INSURANCE COVERAGE / FINANCIAL ISSUES:: [facility] CURRENT HOME/COMMUNITY SERVICES/EQUIPMENT:: No current services PRIMARY CARE PHYSICIAN:: Dr. Simpson. POTENTIAL DISCHARGE NEEDS:: Follow-up with surgical services, anticipate referral to tertiary center. PATIENT/FAMILY EDUCATION NEEDS:: Discharge education, limitations, follow-up plan of care, asked me 3 and self-management. ANTICIPATED BARRIERS TO DISCHARGE:: Resolution of small bowel obstruction, ability to tolerate oral intake. TRANSPORTATION:: Via private car with spouse at time of discharge. PLAN:: Homer is currently receiving IV fluids and pain management, and NG tube in place. Surgical services are managing his care. Anticipate no additional services at time of discharge and referral to tertiary center. CM to continue to provide support to patient and family discharge planning and disposition.
--- NOTE | 2018-09-03 14:39 | PGE_ITS ---
Date of Service Date of service: 09/03/18 Time of Service: 14:35 Assessment and Plan (1) Small bowel obstruction: Current visit: No Status: Acute 68 y/o male with recurrent small bowel obstruction. (+) flatus. WBC normalized. Labs reviewed. Pain resolved. Will trial clear liquids with NG clamped. If low residual, will d/c NG this evening. If high residual, will resume NPO with NG to low intermittent suction. All questions answered. Patient and agreeable with plans. Subjective Interval history since last seen: Patient seen with at bedside. Reports flatus overnight but no BM. Denies abdominal pain this am. NG output was gastroccult (+) per nurse. Added Protonix. AXR improved bowel gas pattern per radiology. Exam Const General: cooperative, comfortable and no acute distress Nutritional Appearance: obese Orientation: alert and oriented x3 HENMT Head: normocephalic, atraumatic and other Resp Effort & Inspection: normal respiratory effort and able to speak in complete sentences GI Inspection: non-distended Palpation: soft, not firm, no guarding and nontender Auscultation: hypoactive bowel sounds Other: NG - yellowish-brown drainage Objective Objective Clinical Data: Abnormal lab results 09/03/18 Range/Units 07:02 BUN 20 H (7-18) mg/dL Glucose 102 H D (70-100) mg/dL Vital Signs Temperature 36.6 C 09/03/18 07:18 Temperature Source Tympanic 09/03/18 07:18 Pulse 72 09/03/18 07:18 Pulse Rhythm Regular 09/03/18 07:45 Respiratory Rate 19 09/03/18 07:18 Respiratory Effort Non-Labored 09/03/18 07:45 Respiratory Depth Normal 09/03/18 07:45 Respiratory Pattern Normal 09/03/18 07:45 Blood Pressure 129/86 09/03/18 07:18 Blood Pressure Mean 85 09/02/18 08:01 Pulse Oximetry 95 09/03/18 07:18 Oxygen Delivery Method Room Air 09/03/18 07:18 Oxygen Flow Rate 0 09/03/18 07:18 Pain Level 3 09/02/18 10:50 Intake & Output 09/02/18 09/02/18 09/03/18 11:59 23:59 11:59 Intake Total 814.167 / 2735.334 1921.167 / 2735.334 795.417 / 795.417 Output Total 100 / 950 850 / 950 400 / 400 Balance 714.167 / 0699.623 1187.167 / 1785.334 395.417 / 395.417 Weight 105.8 kg Intake: IV 694.167 / 2375.334 1681.167 / 2375.334 795.417 / 795.417 Oral 120 / 360 240 / 360 Output: Gastric Drainage 100 / 750 650 / 750 400 / 400 Right Nare 100 / 750 650 / 750 400 / 400 Urine 200 / 200 Other: Urine Color Dark Kasey Urine Appearance Clear Urine Odor Normal Comment 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 nurse states he voided and emptied his urinal at 0600 Voiding Methods Urinal Laboratory Results WBC 9.15 k/cumm (4.4-10.8) 09/03/18 07:02 RBC 4.95 m/cumm (4.50-6.00) 09/03/18 07:02 Hgb 14.8 g/dL (13.5-17.5) 09/03/18 07:02 Hct 45.3 % (40.0-50.0) 09/03/18 07:02 MCV 91.5 fL (80-95) 09/03/18 07:02 MCH 29.9 pg (27.0-33.0) 09/03/18 07:02 MCHC 32.7 g/dL (32.0-36.0) 09/03/18 07:02 RDW 13.1 % (11.8-14.1) 09/03/18 07:02 Plt Count 266 x1000/uL (130-400) 09/03/18 07:02 MPV 9.6 fL (8.0-11.0) 09/03/18 07:02 Immature Gran % 0.2 09/02/18 06:25 Neutrophils % 81.3 09/02/18 06:25 Lymphocytes % 9.4 09/02/18 06:25 Monocytes % 8.5 09/02/18 06:25 Eosinophils % 0.3 09/02/18 06:25 Basophils % 0.3 09/02/18 06:25 Absolute Neutrophils 9.72 k/cumm (1.2-6.7) H 09/02/18 06:25 Absolute Lymphocytes 1.12 k/cumm (1.2-3.4) L 09/02/18 06:25 Absolute Monocytes 1.02 k/cumm (0.11-0.7) H 09/02/18 06:25 Absolute Eosinophils 0.04 k/cumm (0.0-0.7) 09/02/18 06:25 Absolute Basophils 0.04 k/cumm (0.0-0.2) 09/02/18 06:25 Sodium 142 mmol/L (136-145) 09/03/18 07:02 Potassium 3.8 mmol/L (3.5-5.1) 09/03/18 07:02 Chloride 107 mmol/L (98-107) 09/03/18 07:02 Carbon Dioxide 28.8 mmol/L (21.0-32.0) 09/03/18 07:02 Anion Gap 6.2 mmol/L (3-11) 09/03/18 07:02 BUN 20 mg/dL (7-18) H 09/03/18 07:02 Creatinine 1.12 mg/dL (0.70-1.30) 09/03/18 07:02 Estimated GFR/1.73 m2 >= 60.00 (mL/min/1.73m2) 09/03/18 07:02 Glucose 102 mg/dL (70-100) H D 09/03/18 07:02 Lactate 0.9 mmol/l (0.6-1.4) 09/03/18 07:02 Calcium 9.0 mg/dL (8.5-10.1) 09/03/18 07:02 Total Bilirubin 1.1 mg/dL (0.2-1.0) H 09/02/18 06:25 AST 12 U/L (15-37) L 09/02/18 06:25 ALT 21 U/L (12-78) 09/02/18 06:25 Alkaline Phosphatase 93 U/L (46-116) 09/02/18 06:25 Total Protein 7.1 g/dL (6.4-8.2) 09/02/18 06:25 Albumin 3.7 g/dL (3.4-5.0) 09/02/18 06:25 Lipase 59 U/L (73-393) L 09/02/18 06:25 Objective Narrative Objective Narrative: Patient Name: SCARLET LANGE #: [id number]: MS Ordering Provider: : ADM IN Primary Care Provider: Mary Ellen Simpson M.D.Date of Exam: 09/03/18Sex: [place] : 1950ge: 68 Exam(s) EXAM: XR Abdomen, 2 Views EXAM DATE/TIME: 09/03/2018 12:00 AM CLINICAL HISTORY: 68 years old, male; Signs and symptoms; Other: Small bowel obstruction TECHNIQUE: Imaging protocol: Frontal view of the abdomen/pelvis with upright view of the abdomen. COMPARISON: CT ABDOMEN PELVIS WO 09/02/2018 7:13 AM FINDINGS: Tubes, catheters and devices: An enteric feeding tube is present, with its tip located in the stomach in good position. Gastrointestinal tract: A few dilated loops of bowel may represent early obstruction or ileus. Improved appearance compared to August 3. Intraperitoneal space: Normal. No free air. Bones/joints: Unremarkable for age. IMPRESSION: 1. An enteric feeding tube is present, with its tip located in the stomach in good position. 2. A few dilated loops of bowel may represent early obstruction or ileus. Improved appearance compared to August 3. Dictated and Authenticated by: Tanner Abrams MD. Ordering:PRADEEP Nava MD Ordered By: CC: Dictated By: Reports vrad 09/03/18 0000 09/03/18 0918 Transcribed By: Sheeba Blanton This is privileged, confidential information intended only for the provider named. Any use or distribution by any person other than this provider is strictly prohibited. If you receive this report in error, please notify us immediately at [phone] and return the original report to us at the address above. Thank-you.
[2018-09-03 15:55] VITALS: BP 110/68; PULSE 62; RESP 17; TEMP 37; O2SAT 96
[2018-09-03 16:15] VITALS: BP 114/75; PULSE 54; RESP 18; TEMP 37; O2SAT 95
[2018-09-03] MEDS: Lactated Ringers 1,000 ML 100 ML IV (23:03)
[2018-09-03 23:27] VITALS: BP 100/70; PULSE 50; RESP 18; TEMP 36.8; O2SAT 100
[2018-09-04 07:25] VITALS: BP 127/84; PULSE 63; RESP 18; TEMP 36.5; O2SAT 96
[2018-09-04] MEDS: Pantoprazole 40 MG VIAL IVP (08:11)
[2018-09-04] MEDS: Normal Saline Flush 10 ML SYR IVP (08:11)
--- NOTE | 2018-09-04 08:18 | PDOC.CMPRO ---
Care Management Progress Note S/O: Homer and his are quite talkative in interaction. 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 He is hoping for some insight as to why SBO re-occured. He states anticipating some surgical intervention but is unsure whether it will be at [facility] or [facility] He tells stories and is fully engaged. CM continues to follow. A: 68 year old male re-admitted to [facility] 09/02/18 after an inpatient stay 08/23/18-08/26/18 for recurrent SBO P: Homer is currently receiving IV fluids and pain management, NG tube in place. Surgical services are managing his care. No additional services at time of discharge are anticipated. CM will continue to provide support to patient and family discharge planning and disposition.
[2018-09-04] MEDS: Lactated Ringers 1,000 ML 100 ML IV (08:19)
--- NOTE | 2018-09-04 08:21 | CMPROGNOTE_ITS ---
Care Management Progress Note S/O: Homer and his are quite talkative in interaction. 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 He is hoping for some insight as to why SBO re-occured. He states anticipating some surgical intervention but is unsure whether it will be at [facility] or [facility]. He tells stories and is fully engaged. CM continues to follow. A: 68 year old male re-admitted to [facility] 09/02/18 after an inpatient stay 08/23/18- 08/26/18 for recurrent SBO P: Homer is currently receiving IV fluids and pain management, NG tube in place. Surgical services are managing his care. No additional services at time of discharge are anticipated. CM will continue to provide support to patient and family discharge planning and disposition.
--- NOTE | 2018-09-04 10:31 | PGE_ITS ---
Date of Service Date of service: 09/04/18 Time of Service: 10:29 Assessment and Plan (1) Small bowel obstruction: Current visit: No Status: Acute 68 y/o male with recurrent small bowel obstruction. (+) flatus. Pain resolved. NG d/c'd. Will advance diet to full liquids today. Encouraged ambulation. Subjective Interval history since last seen: Patient tolerated clear liquids with NG clamped yesterday. NG d/c'd last evening. (+) flatus but no BM yet. Denies nausea, vomiting, or abdominal pain. Exam Const General: cooperative, no acute distress and well developed Nutritional Appearance: obese Orientation: alert and oriented x3 HENMT Head: normocephalic and atraumatic Eyes Sclera: sclerae normal Resp Effort & Inspection: normal respiratory effort and able to speak in complete sentences Cardio Jugular venous pressure: no JVD GI Inspection: non-distended Palpation: soft, not firm, no guarding, no masses, not rigid and nontender Auscultation: normal bowel sounds Skin General skin exam: no rashes or lesions noted and no jaundice Neuro General: alert and oriented x3 Speech: speech normal Objective Objective Clinical Data: Vital Signs Temperature 36.5 C 09/04/18 07:25 Temperature Source Tympanic 09/04/18 07:25 Pulse 63 09/04/18 07:25 Pulse Rhythm Regular 09/04/18 07:30 Respiratory Rate 18 09/04/18 07:25 Respiratory Effort Non-Labored 09/04/18 07:30 Respiratory Depth Normal 09/04/18 07:30 Respiratory Pattern Normal 09/04/18 07:30 Blood Pressure 127/84 09/04/18 07:25 Blood Pressure Mean 85 09/02/18 08:01 Pulse Oximetry 96 09/04/18 07:25 Oxygen Delivery Method Room Air 09/04/18 07:25 Oxygen Flow Rate 0 09/04/18 07:25 Pain Level 3 09/02/18 10:50 Intake & Output 09/03/18 09/03/18 09/04/18 11:59 23:59 11:59 Intake Total 795.417 / 3925.000 3129.583 / 3925.000 2276.667 / 2276.667 Output Total 475 / 520 45 / 520 Balance 320.417 / 3405.000 3084.583 / 3405.000 2276.667 / 2276.667 Intake: IV 795.417 / 2635.000 1839.583 / 2635.000 956.667 / 956.667 Oral 1290 / 1290 1320 / 1320 Output: Gastric Drainage 475 / 520 45 / 520 Right Nare 475 / 520 45 / 520 Other: Urine Color Yellow Urine Appearance Clear Urine Odor Normal Comment 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 states he voided and emptied his urinal at 0600 Gastric Occult Blood Right Nare Positive Voiding Methods Toilet Toilet Laboratory Results WBC 9.15 k/cumm (4.4-10.8) 09/03/18 07:02 RBC 4.95 m/cumm (4.50-6.00) 09/03/18 07:02 Hgb 14.8 g/dL (13.5-17.5) 09/03/18 07:02 Hct 45.3 % (40.0-50.0) 09/03/18 07:02 MCV 91.5 fL (80-95) 09/03/18 07:02 MCH 29.9 pg (27.0-33.0) 09/03/18 07:02 MCHC 32.7 g/dL (32.0-36.0) 09/03/18 07:02 RDW 13.1 % (11.8-14.1) 09/03/18 07:02 Plt Count 266 x1000/uL (130-400) 09/03/18 07:02 MPV 9.6 fL (8.0-11.0) 09/03/18 07:02 Immature Gran % 0.2 09/02/18 06:25 Neutrophils % 81.3 09/02/18 06:25 Lymphocytes % 9.4 09/02/18 06:25 Monocytes % 8.5 09/02/18 06:25 Eosinophils % 0.3 09/02/18 06:25 Basophils % 0.3 09/02/18 06:25 Absolute Neutrophils 9.72 k/cumm (1.2-6.7) H 09/02/18 06:25 Absolute Lymphocytes 1.12 k/cumm (1.2-3.4) L 09/02/18 06:25 Absolute Monocytes 1.02 k/cumm (0.11-0.7) H 09/02/18 06:25 Absolute Eosinophils 0.04 k/cumm (0.0-0.7) 09/02/18 06:25 Absolute Basophils 0.04 k/cumm (0.0-0.2) 09/02/18 06:25 Sodium 142 mmol/L (136-145) 09/03/18 07:02 Potassium 3.8 mmol/L (3.5-5.1) 09/03/18 07:02 Chloride 107 mmol/L (98-107) 09/03/18 07:02 Carbon Dioxide 28.8 mmol/L (21.0-32.0) 09/03/18 07:02 Anion Gap 6.2 mmol/L (3-11) 09/03/18 07:02 BUN 20 mg/dL (7-18) H 09/03/18 07:02 Creatinine 1.12 mg/dL (0.70-1.30) 09/03/18 07:02 Estimated GFR/1.73 m2 >= 60.00 (mL/min/1.73m2) 09/03/18 07:02 Glucose 102 mg/dL (70-100) H D 09/03/18 07:02 Lactate 0.9 mmol/l (0.6-1.4) 09/03/18 07:02 Calcium 9.0 mg/dL (8.5-10.1) 09/03/18 07:02 Total Bilirubin 1.1 mg/dL (0.2-1.0) H 09/02/18 06:25 AST 12 U/L (15-37) L 09/02/18 06:25 ALT 21 U/L (12-78) 09/02/18 06:25 Alkaline Phosphatase 93 U/L (46-116) 09/02/18 06:25 Total Protein 7.1 g/dL (6.4-8.2) 09/02/18 06:25 Albumin 3.7 g/dL (3.4-5.0) 09/02/18 06:25 Lipase 59 U/L (73-393) L 09/02/18 06:25
[2018-09-04 15:58] VITALS: BP 115/76; PULSE 62; RESP 17; TEMP 36.8; O2SAT 94
[2018-09-05 00:01] VITALS: BP 120/73; PULSE 61; RESP 18; TEMP 36.7; O2SAT 96
[2018-09-05 07:15] VITALS: BP 129/72; PULSE 54; RESP 18; TEMP 36.6; O2SAT 95
[2018-09-05] MEDS: Pantoprazole 40 MG VIAL IVP (07:20)
[2018-09-05] MEDS: Normal Saline Flush 10 ML SYR IVP (07:20)
--- NOTE | 2018-09-05 07:44 | W.PM.PROGNOT ---
Documented by User: [email or web address] Mcrae 09/05/18 07:50 Date of Service Date of service: 09/05/18 Time of Service: 07:44 Assessment and Plan (1) Abdominal hernia: Current visit: No Status: Chronic (2) Small bowel obstruction: Current visit: No Status: Acute Tolerating full liquid diet. Will progress to normal diet for breakfast. Abdominal pain well controlled No nausea or vomiting (+) flatus, small BM last night Disposition- Once tolerating normal diet will d/c home. (3) Umbilical hernia: Current visit: No Status: Chronic Qualifiers: Obstruction and gangrene presence: without obstruction or gangrene Qualified Code(s): K42.9 - Umbilical hernia without obstruction or gangrene Subjective Interval history since last seen: I am doing well. Tolerating full liquid diet. Denies abdominal pain, reporting an occasional burning near his umbilicus. (+) Flatus. Denies nausea or vomiting. Exam Const General: cooperative, healthy appearing and comfortable Orientation: alert and oriented x3 Resp Effort & Inspection: normal respiratory effort, no audible wheezes and no cough GI Inspection: normal to inspection and non-distended Palpation: soft, no guarding and nontender Auscultation: normal bowel sounds Objective Objective Clinical Data: Vital Signs Temperature 36.6 C 09/05/18 07:15 Temperature Source Tympanic 09/05/18 07:15 Pulse 54 L 09/05/18 07:15 Pulse Rhythm Regular 09/05/18 07:13 Respiratory Rate 18 09/05/18 07:15 Respiratory Effort Non-Labored 09/05/18 07:13 Respiratory Depth Normal 09/05/18 07:13 Respiratory Pattern Normal 09/05/18 07:13 Blood Pressure 129/72 09/05/18 07:15 Blood Pressure Mean 85 09/02/18 08:01 Pulse Oximetry 95 09/05/18 07:15 Oxygen Delivery Method Room Air 09/05/18 07:15 Oxygen Flow Rate 0 09/05/18 07:15 Pain Level 3 09/02/18 10:50 Intake & Output 09/04/18 09/05/18 09/05/18 18:59 06:59 18:59 Intake Total 3613.334 / 3863.334 250 / 3863.334 Output Total 3200 / 5200 1999 / 5200 Balance 413.334 / -1336.666 -1750 / -1336.666 Intake: IV 1183.334 / 1193.334 10 / 1193.334 Oral 2430 / 2670 240 / 2670 Output: Urine 3200 / 5200 2000 / 5200 Other: Urine Color Yellow Straw Urine Appearance Clear Clear Stool Size Small Stool Characteristics Soft Formed Voiding Methods Toilet Toilet Laboratory Results WBC 9.15 k/cumm (4.4-10.8) 09/03/18 07:02 RBC 4.95 m/cumm (4.50-6.00) 09/03/18 07:02 Hgb 14.8 g/dL (13.5-17.5) 09/03/18 07:02 Hct 45.3 % (40.0-50.0) 09/03/18 07:02 MCV 91.5 fL (80-95) 09/03/18 07:02 MCH 29.9 pg (27.0-33.0) 09/03/18 07:02 MCHC 32.7 g/dL (32.0-36.0) 09/03/18 07:02 RDW 13.1 % (11.8-14.1) 09/03/18 07:02 Plt Count 266 x1000/uL (130-400) 09/03/18 07:02 MPV 9.6 fL (8.0-11.0) 09/03/18 07:02 Immature Gran % 0.2 09/02/18 06:25 Neutrophils % 81.3 09/02/18 06:25 Lymphocytes % 9.4 09/02/18 06:25 Monocytes % 8.5 09/02/18 06:25 Eosinophils % 0.3 09/02/18 06:25 Basophils % 0.3 09/02/18 06:25 Absolute Neutrophils 9.72 k/cumm (1.2-6.7) H 09/02/18 06:25 Absolute Lymphocytes 1.12 k/cumm (1.2-3.4) L 09/02/18 06:25 Absolute Monocytes 1.02 k/cumm (0.11-0.7) H 09/02/18 06:25 Absolute Eosinophils 0.04 k/cumm (0.0-0.7) 09/02/18 06:25 Absolute Basophils 0.04 k/cumm (0.0-0.2) 09/02/18 06:25 Sodium 142 mmol/L (136-145) 09/03/18 07:02 Potassium 3.8 mmol/L (3.5-5.1) 09/03/18 07:02 Chloride 107 mmol/L (98-107) 09/03/18 07:02 Carbon Dioxide 28.8 mmol/L (21.0-32.0) 09/03/18 07:02 Anion Gap 6.2 mmol/L (3-11) 09/03/18 07:02 BUN 20 mg/dL (7-18) H 09/03/18 07:02 Creatinine 1.12 mg/dL (0.70-1.30) 09/03/18 07:02 Estimated GFR/1.73 m2 >= 60.00 (mL/min/1.73m2) 09/03/18 07:02 Glucose 102 mg/dL (70-100) H D 09/03/18 07:02 Lactate 0.9 mmol/l (0.6-1.4) 09/03/18 07:02 Calcium 9.0 mg/dL (8.5-10.1) 09/03/18 07:02 Total Bilirubin 1.1 mg/dL (0.2-1.0) H 09/02/18 06:25 AST 12 U/L (15-37) L 09/02/18 06:25 ALT 21 U/L (12-78) 09/02/18 06:25 Alkaline Phosphatase 93 U/L (46-116) 09/02/18 06:25 Total Protein 7.1 g/dL (6.4-8.2) 09/02/18 06:25 Albumin 3.7 g/dL (3.4-5.0) 09/02/18 06:25 Lipase 59 U/L (73-393) L 09/02/18 06:25 Documented by User: Migdalia Pandya MD 09/05/18 11:49
--- NOTE | 2018-09-05 12:05 | PDOC.CMPRO ---
- If Service Date Differs Date of service: 09/05/18 Time of Service: 12:05 Care Management Progress Note S/O: Homer is lying in bed when this junior copywriter visits this morning, his Jayleen is seated next to him and they are doing crossword puzzles. Homer reports that he was started on a soft diet today, which he states he is tolerating. Jayleen states that she would like Homer to be as well as possible prior to returning home, as he was readmitted after his previous discharge. A: 68 year old male re-admitted to [facility] 09/02/18 after an inpatient stay 08/23/18-08/26/18 for recurrent SBO P: Homer is currently receiving IV fluids and pain management. Surgical services are managing his care. No additional services at time of discharge are anticipated. CM will continue to provide support to patient and family discharge planning and disposition.
--- NOTE | 2018-09-05 12:09 | CMPROGNOTE_ITS ---
- If Service Date Differs Date of service: 09/05/18 Time of Service: 12:05 Care Management Progress Note S/O: Homer is lying in bed when this screen writer visits this morning, his Jayleen is seated next to him and they are doing crossword puzzles. Homer reports that he was started on a soft diet today, which he states he is tolerating. Jayleen states that she would like Homer to be as well as possible prior to returning home, as he was readmitted after his previous discharge. A: 68 year old male re-admitted to [facility] 09/02/18 after an inpatient stay 08/23/18- 08/26/18 for recurrent SBO P: Homer is currently receiving IV fluids and pain management. Surgical services are managing his care. No additional services at time of discharge are anticipated. CM will continue to provide support to patient and family discharge planning and disposition.
--- NOTE | 2018-09-05 14:31 | W.PM.PROGNOT ---
Date of Service Date of service: 09/05/18 Time of Service: 14:32 Assessment and Plan (1) Abdominal hernia: Current visit: No Status: Chronic (2) Small bowel obstruction: Current visit: No Status: Acute Tolerating normal diet, okay however noted abdominal pain/cramping while eating and shortly afterwards No nausea or vomiting. (+) Flatus. He is concerned regarding this discomfort. Will D/C IV fluids. He is taking in PO fluids. Will keep Mr. Jalloh over nigh to see how he tolerates Dinner and breakfast. Plan is to D/C home tomorrow morning. (3) Umbilical hernia: Current visit: No Status: Chronic Qualifiers: Obstruction and gangrene presence: without obstruction or gangrene Qualified Code(s): K42.9 - Umbilical hernia without obstruction or gangrene Subjective Interval history since last seen: Mr. Jalloh reports that he is feeling okay however states that while eating breakfast and lunch he had abdominal pain/cramping while and immediately after eating. This pain has since resolved, however he is very concerned that when he went home last time, this is how he felt prior getting his small bowel obstruction. Denies nausea and vomiting. He has been ambulating through the taylor multiple times today. Exam Const General: cooperative, healthy appearing and comfortable Orientation: alert and oriented x3 Resp Effort & Inspection: normal respiratory effort, no audible wheezes and no cough Cardio Rate: regular rate Rhythm: regular rhythm Heart Sounds: S1 normal, S2 normal and no murmurs GI Inspection: normal to inspection Palpation: soft, no guarding and nontender Objective Objective Clinical Data: Vital Signs Temperature 36.6 C 09/05/18 07:15 Temperature Source Tympanic 09/05/18 07:15 Pulse 54 L 09/05/18 07:15 Pulse Rhythm Regular 09/05/18 07:13 Respiratory Rate 18 09/05/18 07:15 Respiratory Effort Non-Labored 09/05/18 07:13 Respiratory Depth Normal 09/05/18 07:13 Respiratory Pattern Normal 09/05/18 07:13 Blood Pressure 129/72 09/05/18 07:15 Blood Pressure Mean 85 09/02/18 08:01 Pulse Oximetry 95 09/05/18 07:15 Oxygen Delivery Method Room Air 09/05/18 07:15 Oxygen Flow Rate 0 09/05/18 07:15 Pain Level 3 09/02/18 10:50 Intake & Output 09/04/18 09/05/18 09/05/18 18:59 06:59 18:59 Intake Total 3613.334 / 3863.334 250 / 3863.334 980 / 980 Output Total 3200 / 5200 1999 / 5200 2099 / 2099 Balance 413.334 / -1336.666 -1750 / -1336.666 -1120 / -1120 Intake: IV 1183.334 / 1193.334 10 / 1193.334 Oral 2430 / 2670 240 / 2670 960 / 960 Output: Urine 3200 / 5200 1999 / 0 2099 Other: Urine Color Yellow Straw Yellow Urine Appearance Clear Clear Clear Urine Odor Normal Stool Size Small Stool Characteristics Soft Formed Voiding Methods Toilet Toilet Toilet Laboratory Results WBC 9.15 k/cumm (4.4-10.8) 09/03/18 07:02 RBC 4.95 m/cumm (4.50-6.00) 09/03/18 07:02 Hgb 14.8 g/dL (13.5-17.5) 09/03/18 07:02 Hct 45.3 % (40.0-50.0) 09/03/18 07:02 MCV 91.5 fL (80-95) 09/03/18 07:02 MCH 29.9 pg (27.0-33.0) 09/03/18 07:02 MCHC 32.7 g/dL (32.0-36.0) 09/03/18 07:02 RDW 13.1 % (11.8-14.1) 09/03/18 07:02 Plt Count 266 x1000/uL (130-400) 09/03/18 07:02 MPV 9.6 fL (8.0-11.0) 09/03/18 07:02 Immature Gran % 0.2 09/02/18 06:25 Neutrophils % 81.3 09/02/18 06:25 Lymphocytes % 9.4 09/02/18 06:25 Monocytes % 8.5 09/02/18 06:25 Eosinophils % 0.3 09/02/18 06:25 Basophils % 0.3 09/02/18 06:25 Absolute Neutrophils 9.72 k/cumm (1.2-6.7) H 09/02/18 06:25 Absolute Lymphocytes 1.12 k/cumm (1.2-3.4) L 09/02/18 06:25 Absolute Monocytes 1.02 k/cumm (0.11-0.7) H 09/02/18 06:25 Absolute Eosinophils 0.04 k/cumm (0.0-0.7) 09/02/18 06:25 Absolute Basophils 0.04 k/cumm (0.0-0.2) 09/02/18 06:25 Sodium 142 mmol/L (136-145) 09/03/18 07:02 Potassium 3.8 mmol/L (3.5-5.1) 09/03/18 07:02 Chloride 107 mmol/L (98-107) 09/03/18 07:02 Carbon Dioxide 28.8 mmol/L (21.0-32.0) 09/03/18 07:02 Anion Gap 6.2 mmol/L (3-11) 09/03/18 07:02 BUN 20 mg/dL (7-18) H 09/03/18 07:02 Creatinine 1.12 mg/dL (0.70-1.30) 09/03/18 07:02 Estimated GFR/1.73 m2 >= 60.00 (mL/min/1.73m2) 09/03/18 07:02 Glucose 102 mg/dL (70-100) H D 09/03/18 07:02 Lactate 0.9 mmol/l (0.6-1.4) 09/03/18 07:02 Calcium 9.0 mg/dL (8.5-10.1) 09/03/18 07:02 Total Bilirubin 1.1 mg/dL (0.2-1.0) H 09/02/18 06:25 AST 12 U/L (15-37) L 09/02/18 06:25 ALT 21 U/L (12-78) 09/02/18 06:25 Alkaline Phosphatase 93 U/L (46-116) 09/02/18 06:25 Total Protein 7.1 g/dL (6.4-8.2) 09/02/18 06:25 Albumin 3.7 g/dL (3.4-5.0) 09/02/18 06:25 Lipase 59 U/L (73-393) L 09/02/18 06:25
[2018-09-05 16:12] VITALS: BP 122/74; PULSE 68; RESP 18; TEMP 36.9; O2SAT 97
[2018-09-05 23:43] VITALS: BP 109/65; PULSE 58; RESP 18; TEMP 36.3; O2SAT 95
[2018-09-06 07:20] VITALS: BP 133/82; PULSE 71; RESP 18; TEMP 36.7; O2SAT 96
--- NOTE | 2018-09-06 07:24 | PGE_ITS ---
Date of Service Date of service: 09/06/18 Time of Service: 07:14 Assessment and Plan (1) Abdominal hernia: Current visit: No Status: Chronic (2) Small bowel obstruction: Current visit: No Status: Acute Tolerating Normal diet. (+) BM and Flatus No abdominal pain, nausea or vomiting. Discussed eating diet high and fiber. He has an appointment with General Surgery at [facility] regarding his 3 hernia's on (09/08/18) Disposition: D/C home later today, after breakfast. (3) Umbilical hernia: Current visit: No Status: Chronic Qualifiers: Obstruction and gangrene presence: without obstruction or gangrene Qualified Code(s): K42.9 - Umbilical hernia without obstruction or gangrene Subjective Interval history since last seen: Mr. Jalloh reports he continues to feel good with occasional feeling's of burning around the umbilicus. He reports (+) Flatus and small BM last night. Denies nausea or vomiting. He continues to be tolerating the normal diet. He states I do not normally eat this much throughout the day, especially this close together and I am usually much more active. He expresses concern regrading his D/C home, that he may have another SBO once d/c. Exam Const General: cooperative, healthy appearing and comfortable Orientation: alert and oriented x3 Resp Effort & Inspection: normal respiratory effort, no audible wheezes and no cough Auscultation: clear to auscultation bilaterally Cardio Rate: regular rate Rhythm: regular rhythm Heart Sounds: S1 normal, S2 normal and no murmurs GI Inspection: normal to inspection and non-distended Palpation: soft, no guarding and nontender Objective Objective Clinical Data: Vital Signs Temperature 36.3 C L 09/05/18 23:43 Temperature Source Tympanic 09/05/18 23:43 Pulse 58 L 09/05/18 23:43 Pulse Rhythm Regular 09/05/18 23:09 Respiratory Rate 18 09/05/18 23:43 Respiratory Effort Non-Labored 09/05/18 23:09 Respiratory Depth Normal 09/05/18 23:09 Respiratory Pattern Normal 09/05/18 23:09 Blood Pressure 109/65 09/05/18 23:43 Blood Pressure Mean 85 09/02/18 08:01 Pulse Oximetry 95 09/05/18 23:43 Oxygen Delivery Method Room Air 09/05/18 23:43 Oxygen Flow Rate 0 09/05/18 23:43 Pain Level 3 09/02/18 10:50 Intake & Output 09/05/18 09/06/18 09/06/18 18:59 06:59 18:59 Intake Total 2953.333 / 2953.333 Output Total 2099 Balance 853.333 / 853.333 Intake: IV 793.333 / 793.333 Oral 2160 / 2160 Output: Urine 2099 Other: Urine Color Yellow Urine Appearance Clear Clear Urine Odor Normal Comment Pt removed hat from toilet. Voiding ad anna marie; no measurements. Pt denies sx. Voiding Methods Toilet Laboratory Results WBC 9.15 k/cumm (4.4-10.8) 09/03/18 07:02 RBC 4.95 m/cumm (4.50-6.00) 09/03/18 07:02 Hgb 14.8 g/dL (13.5-17.5) 09/03/18 07:02 Hct 45.3 % (40.0-50.0) 09/03/18 07:02 MCV 91.5 fL (80-95) 09/03/18 07:02 MCH 29.9 pg (27.0-33.0) 09/03/18 07:02 MCHC 32.7 g/dL (32.0-36.0) 09/03/18 07:02 RDW 13.1 % (11.8-14.1) 09/03/18 07:02 Plt Count 266 x1000/uL (130-400) 09/03/18 07:02 MPV 9.6 fL (8.0-11.0) 09/03/18 07:02 Immature Gran % 0.2 09/02/18 06:25 Neutrophils % 81.3 09/02/18 06:25 Lymphocytes % 9.4 09/02/18 06:25 Monocytes % 8.5 09/02/18 06:25 Eosinophils % 0.3 09/02/18 06:25 Basophils % 0.3 09/02/18 06:25 Absolute Neutrophils 9.72 k/cumm (1.2-6.7) H 09/02/18 06:25 Absolute Lymphocytes 1.12 k/cumm (1.2-3.4) L 09/02/18 06:25 Absolute Monocytes 1.02 k/cumm (0.11-0.7) H 09/02/18 06:25 Absolute Eosinophils 0.04 k/cumm (0.0-0.7) 09/02/18 06:25 Absolute Basophils 0.04 k/cumm (0.0-0.2) 09/02/18 06:25 Sodium 142 mmol/L (136-145) 09/03/18 07:02 Potassium 3.8 mmol/L (3.5-5.1) 09/03/18 07:02 Chloride 107 mmol/L (98-107) 09/03/18 07:02 Carbon Dioxide 28.8 mmol/L (21.0-32.0) 09/03/18 07:02 Anion Gap 6.2 mmol/L (3-11) 09/03/18 07:02 BUN 20 mg/dL (7-18) H 09/03/18 07:02 Creatinine 1.12 mg/dL (0.70-1.30) 09/03/18 07:02 Estimated GFR/1.73 m2 >= 60.00 (mL/min/1.73m2) 09/03/18 07:02 Glucose 102 mg/dL (70-100) H D 09/03/18 07:02 Lactate 0.9 mmol/l (0.6-1.4) 09/03/18 07:02 Calcium 9.0 mg/dL (8.5-10.1) 09/03/18 07:02 Total Bilirubin 1.1 mg/dL (0.2-1.0) H 09/02/18 06:25 AST 12 U/L (15-37) L 09/02/18 06:25 ALT 21 U/L (12-78) 09/02/18 06:25 Alkaline Phosphatase 93 U/L (46-116) 09/02/18 06:25 Total Protein 7.1 g/dL (6.4-8.2) 09/02/18 06:25 Albumin 3.7 g/dL (3.4-5.0) 09/02/18 06:25 Lipase 59 U/L (73-393) L 09/02/18 06:25
--- NOTE | 2018-09-06 09:47 | W.PM.DS.N ---
Date of service: 09/06/18 Time of Service: 09:52 DS: Diagnosis Discharge Diagnosis (1) Abdominal hernia: Status: Chronic (2) Small bowel obstruction: Status: Acute (3) Umbilical hernia: Status: Chronic Discharge Plan Disposition Patient Disposition: HOME Condition: Good Discharge Details Reason For Visit: SBO Admit Date/Time: 09/02/18 07:51 Admit Provider: Elijah Hernandez Attending Provider: Elijah Hernandez Primary Care Provider: [facility] Hospital Course Hospital Course: Mr. Jalloh is a pleasant 68 y/o male with history of 3 ventral hernia's and SBO. 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 He had a recent admission ~1.5 wks ago for incarcerated hernia that was reduced. He was treated with NG tube, bowel rest and IV fluids. By 09/03 WBC count normalized, and he was started on clear liquids. 09/04 NG tube was d/c and he was started on full liquids. 09/05 He was started on normal diet, with complaints of mild abdominal pain during eating and following his meal. He had a small BM. Was kept over night to see how he tolerated his nml diet. 09/06 He had another BM, (+) Flatus tolerating nml diet. D/C home with his . Discussed following a high fiber diet and staying hydrated at home. He has an appt with General Surgery at [facility] for evaluation of his 3 ventral hernias. Discussed at length with Mr. Jalloh and his the pathology of SBO and that he is at risk due to his hernia's as well as adhesions from his numerous previous surgeries and that this will hopefully be addressed with his appointment at [facility] for they may be able to also do lysis of adhesions. Home Meds and New Rx's Prescriptions: Continued bisacodyl [Dulcolax (bisacodyl)] 10 mg suppository 10 mg [place] DAILY PRN (Reason: constipation) Qty: 4 RF: 0 Fleet Enema Extra 19-7 gram/197 mL enema 197 ml [place] ONCE Qty: 460 RF: 2 Metamucil 3.4 gram/5.4 gram powder 1 tbs PO BID Qty: 660 RF: 0 Discharge Instructions Instructions: High Fiber Diet (DC), High Fiber Diet (GEN), Bowel Obstruction (DC) Additional Instructions: Please follow up with [facility] appointment on 09/08/18 with General Surgery. Activity:: Activity as Tolerated Equipment/Supplies:: No Equipment Needed Diet:: High Fiber Diet Discharge Orders Discharge Orders: Discharge Order (Routine); Ordered 09/06/18 Ordered By: Ena Morales DS: Summary Time Spent with Patient Less than 30 minutes Exam Const General: cooperative, healthy appearing and comfortable Orientation: alert and oriented x3 Resp Effort & Inspection: normal respiratory effort, no audible wheezes and no cough Auscultation: clear to auscultation bilaterally Cardio Rate: regular rate Rhythm: regular rhythm Heart Sounds: S1 normal, S2 normal and no murmurs GI Inspection: normal to inspection and non-distended Palpation: soft, no guarding, hernia and nontender Auscultation: normal bowel sounds DS: Data Vitals/I&O Vitals and I&O: Vital Signs Temperature 36.7 C 09/06/18 07:20 Temperature Source Tympanic 09/06/18 07:20 Pulse 71 09/06/18 07:20 Pulse Rhythm Regular 09/05/18 23:09 Respiratory Rate 18 09/06/18 07:20 Respiratory Effort Non-Labored 09/05/18 23:09 Respiratory Depth Normal 09/05/18 23:09 Respiratory Pattern Normal 09/05/18 23:09 Blood Pressure 133/82 09/06/18 07:20 Blood Pressure Mean 85 09/02/18 08:01 Pulse Oximetry 96 09/06/18 07:20 Oxygen Delivery Method Room Air 09/06/18 07:20 Oxygen Flow Rate 0 09/06/18 07:20 Pain Level 3 09/02/18 10:50 Intake & Output 09/05/18 09/06/18 09/06/18 18:59 06:59 18:59 Intake Total 2953.333 / 2953.333 480 / 480 Output Total 2099 Balance 853.333 / 853.333 480 / 480 Intake: IV 793.333 / 793.333 Oral 2160 / 2160 480 / 480 Output: Urine 2099 / 2099 Other: Urine Color Yellow Urine Appearance Clear Clear Urine Odor Normal Comment Pt removed hat from toilet. Voiding ad anna marie; no measurements. Pt denies sx. 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 Son Depression Daughter No problems noted. Social History Smoking/Tobacco Use Status: Former Tobacco Use Tobacco: How many years used: 18 Alcohol Intake: former Year quit: 1984 Drug use: Never Substance use type: does not use Household members: spouse Number of Children: 2 Pets and animals: Yes Pets and animals: cat(s) and dog(s) What is your relationship status?: Panel score (0-1 are the most socially isolated patients): 1 What type of physical activity do you participate in: none Seatbelt use: always Drive intox or ride w/intox charter driver: No Working smoke detector in home: Yes Carbon monox detector in home: Yes Do you feel safe at home: Yes Do you feel safe in your relationship?: Yes
--- NOTE | 2018-09-06 09:52 | DSE_ITS ---
Date of service: 09/06/18 Time of Service: 09:52 DS: Diagnosis Discharge Diagnosis (1) Abdominal hernia: Status: Chronic (2) Small bowel obstruction: Status: Acute (3) Umbilical hernia: Status: Chronic Discharge Plan Disposition Patient Disposition: HOME Condition: Good Discharge Details Reason For Visit: SBO Admit Date/Time: 09/02/18 07:51 Admit Provider: Elijah Hernandez Attending Provider: Elijah Hernandez Primary Care Provider: [facility] Hospital Course Hospital Course: Mr. Jalloh is a pleasant 68 y/o male with history of 3 ventral hernia's and SBO. 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 He had a recent admission ~1.5 wks ago for incarcerated hernia that was reduced. He was treated with NG tube, bowel rest and IV fluids. By 09/03 WBC count normalized, and he was started on clear liquids. 09/04 NG tube was d/c and he was started on full liquids. 09/05 He was started on normal diet, with complaints of mild abdominal pain during eating and following his meal. He had a small BM. Was kept over night to see how he tolerated his nml diet. 09/06 He had another BM, (+) Flatus tolerating nml diet. D/C home with his . Discussed following a high fiber diet and staying hydrated at home. He has an appt with General [place] at [facility] [place] evaluation of his 3 ventral hernias. Discussed at length with Mr. Jalloh and his the pathology of SBO and that he is at risk due to his hernia's as well as adhesions from his numerous previous surgeries and that this will hopefully be addressed with his appointment at [facility] for they may be able to also do lysis of adhesions. Home Meds and New Rx's Prescriptions: Continued bisacodyl [Dulcolax (bisacodyl)] 10 mg suppository 10 mg [place] DAILY PRN (Reason: constipation) Qty: 4 RF: 0 Fleet Enema Extra 19-7 gram/197 mL enema 197 ml [place] ONCE Qty: 460 RF: 2 Metamucil 3.4 gram/5.4 gram powder 1 tbs PO BID Qty: 660 RF: 0 Discharge Instructions Instructions: High Fiber Diet (DC), High Fiber Diet (GEN), Bowel Obstruction (DC) Additional Instructions: Please follow up with [facility] appointment on 09/08/18 with General Surgery. Activity:: Activity as Tolerated Equipment/Supplies:: No Equipment Needed Diet:: High Fiber Diet Discharge Orders Discharge Orders: Discharge Order (Routine); Ordered 09/06/18 Ordered By: Ena Morales DS: Summary Time Spent with Patient Less than 30 minutes Exam Const General: cooperative, healthy appearing and comfortable Orientation: alert and oriented x3 Resp Effort & Inspection: normal respiratory effort, no audible wheezes and no cough Auscultation: clear to auscultation bilaterally Cardio Rate: regular rate Rhythm: regular rhythm Heart Sounds: S1 normal, S2 normal and no murmurs GI Inspection: normal to inspection and non-distended Palpation: soft, no guarding, hernia and nontender Auscultation: normal bowel sounds DS: Data Vitals/I&O Vitals and I&O: Vital Signs Temperature 36.7 C 09/06/18 07:20 Temperature Source Tympanic 09/06/18 07:20 Pulse 71 09/06/18 07:20 Pulse Rhythm Regular 09/05/18 23:09 Respiratory Rate 18 09/06/18 07:20 Respiratory Effort Non-Labored 09/05/18 23:09 Respiratory Depth Normal 09/05/18 23:09 Respiratory Pattern Normal 09/05/18 23:09 Blood Pressure 133/82 09/06/18 07:20 Blood Pressure Mean 85 09/02/18 08:01 Pulse Oximetry 96 09/06/18 07:20 Oxygen Delivery Method Room Air 09/06/18 07:20 Oxygen Flow Rate 0 09/06/18 07:20 Pain Level 3 09/02/18 10:50 Intake & Output 09/05/18 09/06/18 09/06/18 18:59 06:59 18:59 Intake Total 2953.333 / 2953.333 480 / 480 Output Total 2099 Balance 853.333 / 853.333 480 / 480 Intake: IV 793.333 / 793.333 Oral 2160 / 2160 480 / 480 Output: Urine 2099 / 2099 Other: Urine Color Yellow Urine Appearance Clear Clear Urine Odor Normal Comment Pt removed hat from toilet. Voiding ad anna marie; no measurements. Pt denies sx. Voiding Methods Toilet [facility] Medical History Abdominal hernia (Chronic) Umbilical hernia (Chronic ~08/24/18) Malrotation of intestine (Chronic) History of alcoholism (Resolved) History of tobacco use (Resolved) Surgical History S/P tonsillectomy and adenoidectomy (Resolved) History of hernia repair (Chronic ~1987) Family History Mother Dementia TIA (transient ischemic attack) Father No problems noted. Son Depression Daughter No problems noted. Social History Smoking/Tobacco Use Status: Former Tobacco Use Tobacco: How many years used: 18 Alcohol Intake: former Year quit: 1984 Drug use: Never Substance use type: does not use Household members: spouse Number of Children: 2 Pets and animals: Yes Pets and animals: cat(s) and dog(s) What is your relationship status?: Panel score (0-1 are the most socially isolated patients): 1 What type of physical activity do you participate in: none Seatbelt use: always Drive intox or ride w/intox nascar driver: No Working smoke detector in home: Yes Carbon monox detector in home: Yes Do you feel safe at home: Yes Do you feel safe in your relationship?: Yes
--- NOTE | 2018-09-06 11:08 | PDOC.CMDIS ---
- If Service Date Differs Date of service: 09/06/18 Time of Service: 11:08 LACE Index Scoring Tool - Questions: Length of Stay (in days): 4 - 6 Acuity (Admit via E.D.?): Yes E.D. Visits: 2 - Answers: Total Score: 9 Risk of Readmission: Low Risk Care Management Discharge Reason for Hospitalization: SBO Discharge Plan: Homer will return home today with no services. He will F/U with Dr. Hernandez and plan of care as prescribed. Homer's Jayleen will transport when ready. Patient/Family Education Needs: Review DC instructions, any limitations, and discuss 'Ask Me Three'
== END 2018-09-06 10:57 | disposition home or self-care (01) | DRG 390 ==
LOC: ER 08:31 → MS 08:46
PROVIDERS: Admitting Provider Surgery; Emergency Provider Emergency Medicine; PCP Internal Medicine; Visit Provider Surgery
DX: K56.50 Intestinal adhesions [bands], unspecified as to partial versus complete obstruction (principal); K43.9 Ventral hernia without obstruction or gangrene; K42.9 Umbilical hernia without obstruction or gangrene
CPT/HCPCS: 36415; 80048; 80053; 83690; 85027; 96361; 96374; 96375; 96376; 99222; 99231; 99232; 99238; 99285; NC; 74019; 74176; 83605; 85025; 99284; J1885; J3010

== ENCOUNTER 2018-09-22 08:27 | Observation (INO) | payer OTHER, SELFPAY ==
[2018-09-22 08:44] VITALS: BP 148/93; PULSE 96; RESP 16; TEMP 36; O2SAT 92
--- NOTE | 2018-09-22 09:04 | W.ED.GENAD ---
Discharge Plan Disposition Patient Disposition: [facility] INPATIENT Condition: Stable Discharge Details Chief Complaint: Abd Prob Clinical Impression: Small bowel obstruction Admit Date/Time: 09/22/18 17:20 Admit Provider: Emilie Kilpatrick Attending Provider: Emilie Kilpatrick Primary Care Provider: Mary Ellen Simpson ED Provider: Jaki Owens Discharge Data Discharge Date/Time-TO BE ENTERED AT DEPARTURE: 09/22/18 18:19 Medical Decision Making 68-year-old male with a history of previous small bowel obstruction status post hernia repair 30 years ago who presents with abdominal pain, constipation and vomiting for the past 2 days. Temp 96.8. Patient appears nontoxic. Tenderness to palpation left mid abdomen. No rigidity or guarding. Concern for recurrent small bowel obstruction. Will place an IV, bolus IV fluids, labs, CT abdomen and pelvis and morphine. Radiologist requested oral contrast. Patient initially declined and then when radiology came to take patient to CT, he agreed to oral contrast as he passed gas. 1100 --labs reviewed. White blood cell count 13. 1245 --patient admits to some return of pain but declining any further pain medication at this time. Awaiting to go to CT. 1420 --ct reviewed with radiologist and notes ileus, no obvious obstruction. Will d/w surgery. 1440 --d/w surgery and CT reviewed - notes partial obstruction. Give fluids, pain control and observe for a little while to see if symptoms improve and will come to evaluate patient later. If he does not improve, will admit for admission overnight. 1700 --Pt denies any significant improvement. D/w Dr. Kilpatrick - accepts pt for admission for observation overnight. Medical Records Medical records reviewed: Yes I reviewed the patient's medical records. Imaging Data Radiologic Study: Radiologist's impression: CT EXAMINATION OF THE ABDOMEN AND PELVIS: The study was carried out according to the usual protocol with an intravenous injection of 100 cc of Omnipaque 350. Oral contrast was also administered to this patient. The lung bases are unremarkable. The liver is intact. The gallbladder, pancreas and spleen are unremarkable. The kidneys are well maintained. There is a nonobstructing right nephrolithiasis. There is no evidence of hydronephrosis. The adrenals are normal. There are dilated gas and fluid-containing loops of large and small bowel. There is no evidence of free air or free fluid in the intraperitoneal space. There is no evidence of an acute appendix. There is no evidence of free air or free fluid in the intraperitoneal space. The bladder is normal. The reproductive organs as visualized are intact. There is no evidence of an aortic aneurysm. A fat-containing umbilical hernia is identified. SUMMARY: Findings consistent with an ileus. Lab Data Lab results reviewed: Yes I reviewed the patient's lab results. Laboratory Tests Range/Units 09/22/18 09/22/18 09/22/18 09:10 09:10 09:12 WBC (4.4-10.8) k/cumm 13.11 H RBC (4.50-6.00) m/cumm 5.16 Hgb (13.5-17.5) g/dL 15.5 Hct (40.0-50.0) % 46.4 MCV (80-95) fL 89.9 MCH (27.0-33.0) pg 30.0 MCHC (32.0-36.0) g/dL 33.4 RDW (11.8-14.1) % 12.9 Plt Count (130-400) x1000/uL 291 MPV (8.0-11.0) fL 9.3 Immature Gran % 0.2 Neutrophils % 86.4 Lymphocytes % 6.1 Monocytes % 7.2 Eosinophils % 0.0 Basophils % 0.1 Absolute Neutrophils (1.2-6.7) k/cumm 11.33 H Absolute Lymphocytes (1.2-3.4) k/cumm 0.80 L Absolute Monocytes (0.11-0.7) k/cumm 0.94 H Absolute Eosinophils (0.0-0.7) k/cumm 0.00 Absolute Basophils (0.0-0.2) k/cumm 0.01 Sodium (136-145) mmol/L 143 Potassium (3.5-5.1) mmol/L 3.7 Chloride (98-107) mmol/L 105 Carbon Dioxide (21.0-32.0) mmol/L 27.8 Anion Gap (3-11) mmol/L 10.2 BUN (7-18) mg/dL 21 H Creatinine (0.70-1.30) mg/dL 1.20 Estimated GFR/1.73 m2 (mL/min/1.73m2) >= 60.00 Glucose (70-100) mg/dL 165 H Calcium (8.5-10.1) mg/dL 9.7 Magnesium (1.8-2.4) mg/dL 2.1 Total Bilirubin (0.2-1.0) mg/dL 1.1 H AST (15-37) U/L 11 L ALT (12-78) U/L 17 Alkaline Phosphatase (46-116) U/L 82 Troponin I (0.00-0.06) ng/mL 0.05 Total Protein (6.4-8.2) g/dL 7.0 Albumin (3.4-5.0) g/dL 3.6 Urine Color Cancelled Urine Clarity Cancelled Urine pH Cancelled Ur Specific [place] Cancelled Urine Protein Cancelled Urine Ketones Cancelled Urine Blood Cancelled Urine Nitrite Cancelled Urine Bilirubin Cancelled Urine Urobilinogen Cancelled Ur Leukocyte Esterase Cancelled Urine Glucose Cancelled HPI General Mode of arrival: ambulatory. Date/Time Provider Initiated Documentation: 09/22/18 08:43. Limitations to Documentation: no limitations. Information obtained by: patient. HPI Narrative: Patient is a 68-year-old male with a history of previous alcohol abuse and recurrent small bowel obstruction who presents with abdominal pain for the past 2 days. Patient states the pain is periumbilical, constant and sharp. He states the pain is currently 4/10. He was admitted here last month for same and symptoms resolved and is discharged home without surgical intervention. Patient states he previously had hernia repair 30 years ago. He also did have what sounds like a volvulus repair as an infant. He states he has been vomiting a proximal me 2-3 times daily for the past few days. His last bowel movement was 2 days ago. He has not eaten any significant food over the past 2 days. He denies any fever. He states he has been scheduled for hernia repair with [facility] on 10/04/2018. Related Data Home Medications Medication Instructions Recorded Confirmed bisacodyl 10 mg rectal suppository 10 mg IN DAILY PRN #4 each 08/23/18 09/02/18 sodium phosphates 19 gram-7 197 ml IN ONCE #460 ml 08/23/18 09/02/18 gram/197 mL enema Metamucil 1 tbs PO BID #660 gm 08/26/18 Previous Rx's Medication Instructions Recorded bisacodyl 10 mg rectal suppository 10 mg IN DAILY PRN #4 each 08/23/18 sodium phosphates 19 gram-7 197 ml IN ONCE #460 ml 08/23/18 gram/197 mL enema Metamucil 1 tbs PO BID #660 gm 08/26/18 Allergies Allergy/AdvReac Type Severity Reaction Status Date / Time No Known Allergies Allergy Verified 08/23/18 17:59 General Stated Complaint: Abd Prob SERGIO: 3 Review of Systems Review of Systems All systems reviewed & are unremarkable except as noted in HPI and below Constitutional Reports as per HPI, Denies chills and Denies fever(s) Eyes Denies blurry vision ENT Denies dizziness, Denies sore throat and Denies throat swelling Cardiovascular Denies chest pain and Denies dyspnea Respiratory Denies cough and Denies dyspnea Gastrointestinal Reports abdominal pain, Denies diarrhea and Reports vomiting Genitourinary Denies hematuria and Denies dysuria Musculoskeletal Denies back pain and Denies numbness Integumentary/Breasts Denies lesions and Denies rash Neurologic Denies dizziness, Denies focal weakness and Denies numbness Allergic/Immunologic Denies throat swelling [facility] Medical History Abdominal hernia (Chronic) Umbilical hernia (Chronic ~08/24/18) Malrotation of intestine (Chronic) History of alcoholism (Resolved) History of tobacco use (Resolved) Surgical History S/P tonsillectomy and adenoidectomy (Resolved) History of hernia repair (Chronic ~1987) Family History Mother Dementia TIA (transient ischemic attack) Father No problems noted. Son Depression Daughter No problems noted. 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 driver: No Working smoke detector in home: Yes Carbon monox detector in home: Yes Do you feel safe at home: Yes Do you feel safe in your relationship?: Yes Exam Const General: cooperative, healthy appearing and no acute distress HENMT Head: normal to inspection Face and sinus: normal facial exam Eyes General: appearance normal, both eyes and all related structures EOM: EOM intact bilaterally Neck Neck: normal visual inspection and No submandibular swelling Lymphatic: no lymphadenopathy noted Chest Chest: normal inspection of the chest and no tenderness Resp Effort & Inspection: normal respiratory effort and able to speak in complete sentences Auscultation: clear to auscultation bilaterally Cardio Rate: regular rate Rhythm: regular rhythm GI Inspection: scar (Well-healed, left side of abdomen) Palpation: soft, not firm, not rigid and tender (Mildly diffusely, worse left mid abdomen) Auscultation: hypoactive bowel sounds Male General Exam: Yes normal external exam Penis: normal penis Scrotum: scrotum normal Testes: no testicular swelling and no testicular tenderness Skin General skin exam: no rashes or lesions noted Neuro General: alert, awake and oriented x3 Cognition: normal cognition Speech: speech normal Motor: muscle tone normal throughout Sensory Exam: no sensory deficits noted Extrem General: normal to inspection, full ROM and no edema Psych Appearance: grossly normal Mental Status: mental status grossly normal Speech and Movement: speech and movement normal Affect: normal affect Course Vital Signs Temperature 96.8 F L 09/22/18 08:44 Pulse 96 H 09/22/18 08:44 Respiratory Rate 16 09/22/18 08:44 Blood Pressure 148/93 H 09/22/18 08:44 Pulse Oximetry 92 L 09/22/18 08:44 Temperature 96.8 F L 09/22/18 08:44 Temperature Source Skin 09/22/18 08:44 Pulse 96 H 09/22/18 08:44 Respiratory Rate 16 09/22/18 08:44 Blood Pressure 148/93 H 09/22/18 08:44 Blood Pressure Position Sitting 09/22/18 08:44 Pulse Oximetry 92 L 09/22/18 08:44 Oxygen Delivery Method Room Air 09/22/18 08:44 Oxygen Flow Rate 0 09/22/18 08:44 Pain Level 4 09/22/18 08:44
[2018-09-22] MEDS: Normal Saline 250 ML 500 ML IV ×2 (09:15→15:00)
[2018-09-22 09:17] LABS: Abs Immature Grans 0.03 k/cumm (0.0-0.09); Absolute Basophil Count 0.01 k/cumm (0.0-0.2); Absolute Monocyte Count 0.94 k/cumm (0.11-0.7); Absolute Neutrophil Count 11.33 k/cumm (1.2-6.7); Basophils % 0.1; HCT 46.4 % (40.0-50.0); HGB 15.5 g/dL (13.5-17.5); Immature Grans % 0.2; Lymphocytes % 6.1; Mean Corp. HGB Concentration 33.4 g/dL (32.0-36.0); Mean Corpuscular Volume 89.9 fL (80-95); Mean Platelet Volume 9.3 fL (8.0-11.0); Monocytes % 7.2; Neutrophils % 86.4; Platelet Count 291 x1000/uL (130-400); RBC 5.16 m/cumm (4.50-6.00); RBC Distribution Width 12.9 % (11.8-14.1); White Blood Cell Count 13.11 k/cumm (4.4-10.8)
[2018-09-22 09:37] LABS: ALT 17 U/L (12-78); AST 11 U/L (15-37); Albumin 3.6 g/dL (3.4-5.0); Alkaline Phosphatase 82 U/L (46-116); Anion Gap 10.2 mmol/L (3-11); BUN 21 mg/dL (7-18); Bilirubin, Total 1.1 mg/dL (0.2-1.0); CO2 27.8 mmol/L (21.0-32.0); Calcium 9.7 mg/dL (8.5-10.1); Chloride 105 mmol/L (98-107); Glucose 165 mg/dL (70-100); Magnesium 2.1 mg/dL (1.8-2.4); Potassium 3.7 mmol/L (3.5-5.1); Sodium 143 mmol/L (136-145); Troponin I 0.05 ng/mL (0.00-0.06)
--- NOTE | 2018-09-22 13:13 | DI.CT_ITS ---
SYMPTOMS/DIAGNOSIS: DIFFUSE ABDOMINAL PAIN, ? SMALL BOWEL OBSTRUCTION CT EXAMINATION OF THE ABDOMEN AND PELVIS: The study was carried out according to the usual protocol with an intravenous injection of 100 cc of Omnipaque 350. Oral contrast was also administered to this patient. The lung bases are unremarkable. The liver is intact. The gallbladder, pancreas and spleen are unremarkable. The kidneys are well maintained. There is a nonobstructing right nephrolithiasis. There is no evidence of hydronephrosis. The adrenals are normal. There are dilated gas and fluid-containing loops of large and small bowel. There is no evidence of free air or free fluid in the intraperitoneal space. There is no evidence of an acute appendix. There is no evidence of free air or free fluid in the intraperitoneal space. The bladder is normal. The reproductive organs as visualized are intact. There is no evidence of an aortic aneurysm. A fat- containing umbilical hernia is identified. SUMMARY: Findings consistent with an ileus.
[2018-09-22 18:20] VITALS: BP 124/73; PULSE 62; RESP 16; TEMP 36.3; O2SAT 96
[2018-09-22 18:38] VITALS: BP 145/87; PULSE 61; RESP 20; TEMP 36.3; O2SAT 92
[2018-09-22] MEDS: Lactated Ringers 1,000 ML 125 ML IV (20:24)
--- NOTE | 2018-09-22 21:46 | HPE_ITS ---
Date of service: 09/22/18 Time of Service: 21:45 Assessment and Plan (1) SBO (small bowel obstruction): Current visit: No Status: Acute cont supportive care pt has laprascopic hernia surgery scheduled October 10 we will continue conservative medical managment at this time no need for surgical intervention will admit for iV hydration and pain control needs to continue on high protein diet before surgery (2) Abdominal hernia: Current visit: No Status: Chronic (3) Entropion of both lower eyelids: Current visit: No Status: Acute eye drops History of Present Illness Consults Consult date: 09/22/18 Requesting physician: Jaki Owens Narrative: pt has a hx of SBO. This is 3-4 this year. he has a long standing Hx of SBO's. He is scheduled to have surgery October 10. Today he stated having abdominal pain and nausea. He is not passing any gas. no peritonitis. alondra angulo. Review of Systems Review of Systems All systems reviewed & are unremarkable except as noted in HPI and below Constitutional Reports as per HPI, Reports system reviewed and no additional complaints, except as docu, Denies anorexia, Denies chills, Denies difficulty sleeping, Denies fatigue, Denies headache(s), Denies lethargy, Denies malaise, Denies poor appetite, Denies weakness, Denies weight gain and Denies weight loss Eyes Reports as per HPI, Reports system reviewed and no additional complaints, except as docu and Denies change in vision Comments: entropion ENT Reports system reviewed and no additional complaints, except as docu, Reports as per HPI, Denies change in voice, Denies dental pain, Denies dysphagia, Denies dizziness, Denies facial pain, Denies headache(s) and Denies odynophagia Cardiovascular Reports as per HPI, Reports system reviewed and no additional complaints, except as docu, Denies chest pain, Denies chest pain with activity, Denies syncope, Denies leg edema and Denies dyspnea Respiratory Reports as per HPI, Reports system reviewed and no additional complaints, except as docu, Denies chest congestion, Denies cough, Denies pain with cough and Denies dyspnea Gastrointestinal Reports as per HPI, Reports system reviewed and no additional complaints, except as docu, Reports abdominal pain, Reports belching, Reports bloating, Denies change in bowel habits, Denies change in stool character, Denies constipation, Denies cramping, Denies dysphagia, Denies early satiety, Denies heartburn, Denies diarrhea, Reports nausea, Denies odynophagia and Reports vomiting Comments: obstipation. mult abdominal hernias Genitourinary Reports system reviewed and no additional complaints, except as docu Musculoskeletal Reports system reviewed and no additional complaints, except as docu, Reports as per HPI, Denies abnormal gait, Denies arthralgias and Denies muscle weakness Integumentary/Breasts Reports system reviewed and no additional complaints, except as docu, Reports as per HPI, Denies changing lesions, Denies new lesions and Denies jaundice Neurologic Reports system reviewed and no additional complaints, except as docu, Reports as per HPI, Denies abnormal speech, Denies abnormal gait, Denies dizziness, Denies syncope, Denies headache(s), Denies memory loss and Denies weakness Psychiatric Reports system reviewed and no additional complaints, except as docu, Reports as per HPI, Denies change in appetite and Denies memory loss Endocrine Denies fatigue, Denies polydipsia and Denies polyuria Hematologic/Lymphatic Reports system reviewed and no additional complaints, except as docu, Denies easy bleeding and Denies easy bruising Allergic/Immunologic Denies system reviewed and no additional complaints, except as docu, Reports as per HPI and Denies urticaria PFS Medical History Entropion of both lower eyelids (Acute) SBO (small bowel obstruction) (Acute) Abdominal hernia (Chronic) Umbilical hernia (Chronic ~08/24/18) Malrotation of intestine (Chronic) History of alcoholism (Resolved) History of tobacco use (Resolved) Surgical History S/P tonsillectomy and adenoidectomy (Resolved) History of hernia repair (Chronic ~1987) Family History Mother Dementia TIA (transient ischemic attack) Father No problems noted. Son Depression Daughter No problems noted. 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 paramedic: No Working smoke detector in home: Yes Carbon monox detector in home: Yes Do you feel safe at home: Yes Do you feel safe in your relationship?: Yes Meds Home Medications Medication Instructions Recorded Confirmed Type carboxymethylcellulose sodium 1 drp OP 4-6XD PRN #15 ml 09/24/18 Rx [TheraTears] food supplemt, lactose-reduced 250 ml PO BID #2832 ml 09/24/18 Rx [Ensure High Protein] polyethylene glycol 3350 [Miralax] 17 gm PO BID #510 gm 09/24/18 Rx Allergies Allergy/AdvReac Type Severity Reaction Status Date / Time No Known Allergies Allergy Verified 08/23/18 17:59 Exam Const General: cooperative, healthy appearing, comfortable, no acute distress, well developed and well groomed Nutritional Appearance: average body habitus and well nourished Orientation: alert, awake and oriented x3 HENMT Head: normal to inspection, normocephalic and atraumatic Ears: hearing grossly normal bilaterally and external ears normal General nose exam: external nose normal Face and sinus: normal facial exam and sinuses nontender Mouth: oral mucosae normal, lip normal, tongue normal and moist mucous membranes Teeth and gingiva: dentition normal Eyes General: appearance normal, both eyes and all related structures Conjunctivae: conjunctivae normal Sclera: sclerae normal Pupils: PERRL Neck Neck: normal visual inspection and full ROM Chest Chest: normal inspection of the chest Resp Effort & Inspection: normal respiratory effort, able to speak in complete sentences, no cough, no nasal flaring, not tachypneic and no use of accessory muscles Auscultation: clear to auscultation bilaterally, no rales, no rhonchi and no wheezes Cardio Jugular venous pressure: no JVD Rate: regular rate Rhythm: regular rhythm GI Inspection: normal to inspection, no edema and distended Palpation: soft, no masses, tender and No ascites Percussion: dullness to percussion Auscultation: normal bowel sounds Other: has good BS. mild tenderness. no peritonitis. Skin General skin exam: no rashes or lesions noted Trauma: no lacerations or abrasions Neuro General: alert, oriented x3, oriented, gait normal, moves all extremities, no focal motor deficits and CN's II-XI intact bilaterally Cognition: normal cognition Speech: speech normal Gait: normal gait Motor: muscle tone normal throughout Extrem General: normal to inspection, full ROM and no clubbing, cyanosis or edema Psych Appearance: grossly normal and well kempt Mental Status: mental status grossly normal Speech and Movement: speech and movement normal Affect: normal affect Results Labs : 09/22/18 09:10 09/22/18 09:10 Laboratory Results - last 24 hr 09/22/18 09/22/18 09/22/18 09:10 09:10 09:12 WBC 13.11 H RBC 5.16 Hgb 15.5 Hct 46.4 MCV 89.9 MCH 30.0 MCHC 33.4 RDW 12.9 Plt Count 291 MPV 9.3 Immature Gran % 0.2 Neutrophils % 86.4 Lymphocytes % 6.1 Monocytes % 7.2 Eosinophils % 0.0 Basophils % 0.1 Absolute Neutrophils 11.33 H Absolute Lymphocytes 0.80 L Absolute Monocytes 0.94 H Absolute Eosinophils 0.00 Absolute Basophils 0.01 Sodium 143 Potassium 3.7 Chloride 105 Carbon Dioxide 27.8 Anion Gap 10.2 BUN 21 H Creatinine 1.20 Estimated GFR/1.73 m2 >= 60.00 Glucose 165 H Calcium 9.7 Magnesium 2.1 Total Bilirubin 1.1 H AST 11 L ALT 17 Alkaline Phosphatase 82 Troponin I 0.05 Total Protein 7.0 Albumin 3.6 Urine Color Cancelled Urine Clarity Cancelled Urine pH Cancelled Ur Specific [place] Cancelled Urine Protein Cancelled Urine Ketones Cancelled Urine Blood Cancelled Urine Nitrite Cancelled Urine Bilirubin Cancelled Urine Urobilinogen Cancelled Ur Leukocyte Esterase Cancelled Urine Glucose Cancelled Last Vital Signs Temp 36.3 C L 09/22/18 18:38 Pulse 61 09/22/18 18:38 Resp 20 09/22/18 18:38 BP 145/87 H 09/22/18 18:38 Pulse Ox 92 L 09/22/18 18:38
[2018-09-22 22:48] VITALS: BP 138/78; PULSE 64; RESP 20; TEMP 36.5; O2SAT 95
[2018-09-23] MEDS: Lactated Ringers 1,000 ML 125 ML IV ×3 (04:00→20:52)
[2018-09-23 07:13] VITALS: BP 122/73; PULSE 54; RESP 18; TEMP 36.4; O2SAT 95
--- NOTE | 2018-09-23 08:20 | PDOC.CMIN ---
- If Service Date Differs Date of service: 09/23/18 Time of Service: 08:21 Care Management Initial Assess REASON FOR HOSPITALIZATION:: SBO PAST MEDICAL HISTORY/PAST SURGICAL HISTORY:: Medical History . Abdominal hernia (Chronic). Umbilical hernia (Chronic ~08/24/18). Malrotation of intestine (Chronic). History of alcoholism (Resolved). History of tobacco use (Resolved). Surgical History . S/P tonsillectomy and adenoidectomy (Resolved). History of hernia repair (Chronic ~1987) PREVIOUS FUNCTIONAL STATUS/SOCIAL/FAMILY SUPPORTS:: Homer and his live in [place] in a large [place] [facility] style home that has 3 floors. 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 He is independent with ADLs and continues to drive. The [facility] have 2 adult children ages 26 and 28 who are supportive. CURRENT FUNCTIONAL STATUS:: Addy was on his way to [facility] when CM came to visit. He was fully dressed and stated he hopes to go home today. He says he is feeling much better. Addy has hernia surgery scheduled for 10/04/18 at [facility]. His Jayleen said that she is going to ask Dr. Kilpatrick if she thinks that moving the surgery date up might be a good idea since this is Addy's 3rd admission in a month. Jayleen says Addy is concerned about the cost as well as the amount of pain he experiences with each episode. ADVANCE DIRECTIVES:: None on file Has patient been provided with information about the portal?: Yes Did the patient sign up for the portal?: No CODE STATUS:: Full Code INSURANCE COVERAGE / FINANCIAL ISSUES:: [facility] CURRENT HOME/COMMUNITY SERVICES/EQUIPMENT:: None at this time PRIMARY CARE PHYSICIAN:: Mary Ellen Simpson POTENTIAL DISCHARGE NEEDS:: Follow up with PCP and [facility] surgeon and plan of care as prescribed. PATIENT/FAMILY EDUCATION NEEDS:: Discharge plan, limitations, folllow up plan of care. Ask Me Three. ANTICIPATED BARRIERS TO DISCHARGE:: none TRANSPORTATION:: Jayleen will transport Addy home via private automobile when ready for discharge. PLAN:: Addy remains at [facility] in Observation status. He is awaiting test results to determine if the SBO has resolved. He will be discharged home with no home services. He has surgery to repair 3 abdominal hernias scheduled at [facility] for 10/04/18. will continue to provide support to patient, family, care team and discharge plan of care.
[2018-09-23] MEDS: Magnesium Citrate 300 ML BTL 150 ML PO ×2 (09:45→12:23)
--- NOTE | 2018-09-23 09:52 | INITIAL_ITS ---
- If Service Date Differs Date of service: 09/23/18 Time of Service: 08:21 Care Management Initial Assess REASON FOR HOSPITALIZATION:: SBO PAST MEDICAL HISTORY/PAST SURGICAL HISTORY:: Medical History . Abdominal hernia (Chronic). Umbilical hernia (Chronic ~08/24/18). Malrotation of intestine (Chronic). History of alcoholism (Resolved). History of tobacco use (Resolved). Surgical History (Reviewed 09/01 07/19 @ 09:04 by Jaki Owens DO). S/P tonsillectomy and adenoidectomy (Resolved). History of hernia repair (Chronic ~1987) PREVIOUS FUNCTIONAL STATUS/SOCIAL/FAMILY SUPPORTS:: Homer and his live in [place] in a large [facility] style home that has 3 floors. 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 He is independent with ADLs and continues to drive. [facility] have 2 adult children ages 26 and 28 who are supportive. CURRENT FUNCTIONAL STATUS:: Addy was on his way to [facility] when CM came to visit. He was fully dressed and stated he hopes to go home today. He says he is feeling much better. Addy has hernia surgery scheduled for 10/04/18 at [facility]. His Jayleen said that she is going to ask Dr. Kilpatrick if she thinks that moving the surgery date up might be a good idea since this is Addy's 3rd admission in a month. Jayleen says Addy is concerned about the cost as well as the amount of pain he ex periences with each episode. ADVANCE DIRECTIVES:: None on file Has patient been provided with information about the portal?: Yes Did the patient sign up for the portal?: No CODE STATUS:: Full Code INSURANCE COVERAGE / FINANCIAL ISSUES:: [facility] CURRENT HOME/COMMUNITY SERVICES/EQUIPMENT:: None at this time PRIMARY CARE PHYSICIAN:: Mary Ellen Simpson POTENTIAL DISCHARGE NEEDS:: Follow up with PCP and [facility] surgeon and plan of care as prescribed. PATIENT/FAMILY EDUCATION NEEDS:: Discharge plan, limitations, folllow up plan of care. Ask Me Three. ANTICIPATED BARRIERS TO DISCHARGE:: none TRANSPORTATION:: Jayleen will transport Addy home via private automobile when ready for discharge. PLAN:: Addy remains at [facility] in Observation status. He is awaiting test results to determine if the SBO has resolved. He will be discharged home with no home services. He has surgery to repair 3 abdominal hernias scheduled at [facility] for 10/04/18. will continue to provide support to patient, family, care team and discharge plan of care.
--- NOTE | 2018-09-23 11:19 | DI.RAD_ITS ---
SYMPTOMS/DIAGNOSIS: SBO FLAT AND UPRIGHT ABDOMEN: Comparison is made with CT of the abdomen and pelvis [id number]. There is residual contrast within the colon on the previous day's CT. Extensive diverticulosis is noted of the descending and sigmoid colon. There is no abnormal colonic distention. There has been interval decrease in the amount of small bowel dilatation compared with the previous CT. Contrast is no longer seen within the small bowel. There is no evidence of free air. IMPRESSION: Decreased small bowel dilatation.
--- NOTE | 2018-09-23 12:29 | PHARADMIT ---
Admission Pharmacy Clinical Review PARTIAL SBO Code Status Full Code Current Weight Wgt- 101.7 kg Renally Cleared and Narrow Therapeutic Index Meds CrCl~ 53 mL/min Meds-OK QTc Value / Action Taken NONE BP Control, Fever BP- 122/73 Tmax- 36.5C Electrolytes reviewed Na- 143 K+3.7 Mag-2.1 DVT Prophylaxis Lovenox Opiate Usage / Scheduled Bowel Regimen Ordered Morphine, none (SBO) Plt/SCr for Heparin / Enoxaparin Plts-291 SCr-1.20 INR for Warfarin NA H/H stable, WBC/Bands H&H- 15.5/6.4 WBC- 13.11 Antibiotic appropriateness none Cultures and Sensitivities none Surgical ABX d/c within 24 hr NA DM control / Insulin Dosing BG- 165 Heart Failure (Check EF%) (DELROY's, B-Block, Diuretics) none IV to PO Switch No Home Meds Reviewed Yes Home Meds Not Ordered Dulcolax,Fleets, Metamucil Comments
--- NOTE | 2018-09-23 15:45 | CHAPLAIN ---
Addy and I remembered each other from another admission of his. He was dressed in his own clothes this morning, hopeful that he would be discharged. His was with him. He is worried about the expense of his ER visits/admissions.
[2018-09-23 15:55] VITALS: BP 109/72; PULSE 62; RESP 16; TEMP 37; O2SAT 94
--- NOTE | 2018-09-23 18:16 | W.PM.PROGNOT ---
Date of Service Date of service: 09/23/18 Time of Service: 18:16 Assessment and Plan (1) Abdominal hernia: Current visit: No Status: Chronic (2) SBO (small bowel obstruction): Current visit: Yes Status: Acute pt is not really eating. says he is hungry but afaid to eat. start on protein shakes- at least BID keep on mirlax until sx prob BID cont hydration if feeling better than plan d/c in am Subjective Patient reports: pain is less, voiding w/o difficulty, nausea, vomiting and afebrile; denies shortness of breath Interval history since last seen: Pt is doing well. no headaches. No CP or SOB. no productive cough. no dysuria. no leg pain or swelling. He is not really eating. he had a small bm. no n/v. ate pudding. no drinking water. less pain than yest. still some mild pain. no bleeding w/ BM. Exam Const General: cooperative, healthy appearing, comfortable, no acute distress, well developed and well groomed Nutritional Appearance: average body habitus and well nourished Orientation: alert, awake and oriented x3 [facility] Head: normal to inspection, normocephalic and atraumatic Ears: hearing grossly normal bilaterally and external ears normal General nose exam: external nose normal Face and sinus: normal facial exam and sinuses nontender Mouth: oral mucosae normal, lip normal, tongue normal and moist mucous membranes Teeth and gingiva: dentition normal Eyes General: appearance normal, both eyes and all related structures Conjunctivae: conjunctivae normal Sclera: sclerae normal Pupils: PERRL Neck Neck: normal visual inspection and full ROM Chest Chest: normal inspection of the chest Resp Effort & Inspection: normal respiratory effort, able to speak in complete sentences, no cough, no nasal flaring, not tachypneic and no use of accessory muscles Auscultation: clear to auscultation bilaterally, no rales, no rhonchi and no wheezes Cardio Jugular venous pressure: no JVD Rate: regular rate Rhythm: regular rhythm GI Inspection: normal to inspection, no edema and non-distended Palpation: soft, no masses, nontender and No ascites Auscultation: normal bowel sounds Skin General skin exam: no rashes or lesions noted Trauma: no lacerations or abrasions Neuro General: alert, oriented x3, oriented, gait normal, moves all extremities, no focal motor deficits and CN's II-XI intact bilaterally Cognition: normal cognition Speech: speech normal Gait: normal gait Motor: muscle tone normal throughout Extrem General: normal to inspection, full ROM and no clubbing, cyanosis or edema Psych Appearance: grossly normal and well kempt Mental Status: mental status grossly normal Speech and Movement: speech and movement normal Affect: normal affect Objective Objective Clinical Data: Vital Signs Temperature 37.0 C 09/23/18 15:55 Temperature Source Temporal Artery Scan 09/23/18 15:55 Pulse 62 09/23/18 15:55 Pulse Rhythm Regular 09/23/18 15:55 Respiratory Rate 16 09/23/18 15:55 Respiratory Effort 09/23/18 15:55 Respiratory Depth Normal 09/23/18 15:55 Respiratory Pattern Normal 09/23/18 15:55 Blood Pressure 109/72 09/23/18 15:55 Blood Pressure Position Sitting 09/22/18 08:44 Pulse Oximetry 94 L 09/23/18 15:55 Oxygen Delivery Method Room Air 09/23/18 15:55 Oxygen Flow Rate 0 09/23/18 15:55 Pain Level 0 09/22/18 18:38 Intake & Output 09/22/18 09/23/18 09/23/18 23:59 11:59 23:59 Intake Total 750 / 750 2765 / 3141.25 376.25 / 3141.25 Output Total 1000 / 1000 Balance 750 / 750 1765 / 2141.25 376.25 / 2141.25 Weight 101.7 kg Intake: IV 750 / 750 1825 / 1931.25 106.25 / 1931.25 Oral 940 / 1210 270 / 1210 Output: Urine 1000 / 1000 Other: Urine Color Light [place] Urine Appearance Clear Clear Clear Comment voiding throughout day into toilet Stool Size Moderate Moderate Stool Characteristics Soft Soft Formed Formed Brown Hard Brown Voiding Methods Urinal Laboratory Results WBC 13.11 k/cumm (4.4-10.8) H 09/22/18 09:10 RBC 5.16 m/cumm (4.50-6.00) 09/22/18 09:10 Hgb 15.5 g/dL (13.5-17.5) 09/22/18 09:10 Hct 46.4 % (40.0-50.0) 09/22/18 09:10 MCV 89.9 fL (80-95) 09/22/18 09:10 MCH 30.0 pg (27.0-33.0) 09/22/18 09:10 MCHC 33.4 g/dL (32.0-36.0) 09/22/18 09:10 RDW 12.9 % (11.8-14.1) 09/22/18 09:10 Plt Count 291 x1000/uL (130-400) 09/22/18 09:10 MPV 9.3 fL (8.0-11.0) 09/22/18 09:10 Immature Gran % 0.2 09/22/18 09:10 Neutrophils % 86.4 09/22/18 09:10 Lymphocytes % 6.1 09/22/18 09:10 Monocytes % 7.2 09/22/18 09:10 Eosinophils % 0.0 09/22/18 09:10 Basophils % 0.1 09/22/18 09:10 Absolute Neutrophils 11.33 k/cumm (1.2-6.7) H 09/22/18 09:10 Absolute Lymphocytes 0.80 k/cumm (1.2-3.4) L 09/22/18 09:10 Absolute Monocytes 0.94 k/cumm (0.11-0.7) H 09/22/18 09:10 Absolute Eosinophils 0.00 k/cumm (0.0-0.7) 09/22/18 09:10 Absolute Basophils 0.01 k/cumm (0.0-0.2) 09/22/18 09:10 Sodium 143 mmol/L (136-145) 09/22/18 09:10 Potassium 3.7 mmol/L (3.5-5.1) 09/22/18 09:10 Chloride 105 mmol/L (98-107) 09/22/18 09:10 Carbon Dioxide 27.8 mmol/L (21.0-32.0) 09/22/18 09:10 Anion Gap 10.2 mmol/L (3-11) 09/22/18 09:10 BUN 21 mg/dL (7-18) H 09/22/18 09:10 Creatinine 1.20 mg/dL (0.70-1.30) 09/22/18 09:10 Estimated GFR/1.73 m2 >= 60.00 (mL/min/1.73m2) 09/22/18 09:10 Glucose 165 mg/dL (70-100) H 09/22/18 09:10 Calcium 9.7 mg/dL (8.5-10.1) 09/22/18 09:10 Magnesium 2.1 mg/dL (1.8-2.4) 09/22/18 09:10 Total Bilirubin 1.1 mg/dL (0.2-1.0) H 09/22/18 09:10 AST 11 U/L (15-37) L 09/22/18 09:10 ALT 17 U/L (12-78) 09/22/18 09:10 Alkaline Phosphatase 82 U/L (46-116) 09/22/18 09:10 Troponin I 0.05 ng/mL (0.00-0.06) 09/22/18 09:10 Total Protein 7.0 g/dL (6.4-8.2) 09/22/18 09:10 Albumin 3.6 g/dL (3.4-5.0) 09/22/18 09:10 Urine Color Cancelled 09/22/18 09:12 Urine Clarity Cancelled 09/22/18 09:12 Urine pH Cancelled 09/22/18 09:12 Ur Specific [place] Cancelled 09/22/18 09:12 Urine Protein Cancelled 09/22/18 09:12 Urine Ketones Cancelled 09/22/18 09:12 Urine Blood Cancelled 09/22/18 09:12 Urine Nitrite Cancelled 09/22/18 09:12 Urine Bilirubin Cancelled 09/22/18 09:12 Urine Urobilinogen Cancelled 09/22/18 09:12 Ur Leukocyte Esterase Cancelled 09/22/18 09:12 Urine Glucose Cancelled 09/22/18 09:12
[2018-09-23] MEDS: Polyethylene Glycol 3350 17 GM PACKET PO (19:24)
[2018-09-23 23:25] VITALS: BP 105/65; PULSE 48; RESP 16; TEMP 36.9; O2SAT 95
[2018-09-24] MEDS: Lactated Ringers 1,000 ML 125 ML IV (05:00)
[2018-09-24 07:20] VITALS: BP 113/73; PULSE 47; RESP 20; TEMP 36.8; O2SAT 92
[2018-09-24] MEDS: Polyethylene Glycol 3350 17 GM PACKET PO (08:02)
--- NOTE | 2018-09-24 12:29 | PDOC.CMDIS ---
LACE Index Scoring Tool - Questions: Length of Stay (in days): 2 Acuity (Admit via E.D.?): Yes E.D. Visits: 1 - Answers: Total Score: 6 Risk of Readmission: Low Risk Care Management Discharge Reason for Hospitalization: SBO Discharge Plan: Homer will reurn home today. , Jayleen, will transport home. He already has an appointment at [facility] for Hernia repair on 10/04/18. No services needed at this time. Patient/Family Education Needs: Discharge instructions
--- NOTE | 2018-09-24 12:46 | CMDISCH_ITS ---
LACE Index Scoring Tool - Questions: Length of Stay (in days): 2 Acuity (Admit via E.D.?): Yes E.D. Visits: 1 - Answers: Total Score: 6 Risk of Readmission: Low Risk Care Management Discharge Reason for Hospitalization: SBO Discharge Plan: Homer will reurn home today. , Jayleen, will transport home. He already has an appointment at [facility] for Hernia repair on 10/04/18. No services needed at this time. Patient/Family Education Needs: Discharge instructions
--- NOTE | 2018-09-24 13:10 | W.PM.PROGNOT ---
Date of Service Date of service: 09/24/18 Time of Service: 13:10 Assessment and Plan (1) SBO (small bowel obstruction): Current visit: No Status: Acute (2) Abdominal hernia: Current visit: No Status: Chronic resolved at this point high protein diet stay on miralax BID until sx ensure/ low fiber diet return to ED if N/v and obstipation returns (3) Entropion of both lower eyelids: Current visit: No Status: Acute artificial tears f/u w/ optho Subjective Interval history since last seen: Pt is doing well. no headaches. No CP or SOB. no productive cough. no dysuria. no leg pain or swelling. tolerating liquids. Had very liquid BM. no blood. no abdom pain. . Exam Const General: cooperative, healthy appearing, comfortable, no acute distress, well developed and well groomed Nutritional Appearance: average body habitus and well nourished Orientation: alert, awake and oriented x3 HENMT Head: normal to inspection, normocephalic and atraumatic Ears: hearing grossly normal bilaterally and external ears normal General nose exam: external nose normal Face and sinus: normal facial exam and sinuses nontender Mouth: oral mucosae normal, lip normal, tongue normal and moist mucous membranes Teeth and gingiva: dentition normal Eyes General: appearance normal, both eyes and all related structures Conjunctivae: conjunctivae normal Sclera: sclerae normal Pupils: PERRL Neck Neck: normal visual inspection and full ROM Chest Chest: normal inspection of the chest Resp Effort & Inspection: normal respiratory effort, able to speak in complete sentences, no cough, no nasal flaring, not tachypneic and no use of accessory muscles Auscultation: clear to auscultation bilaterally, no rales, no rhonchi and no wheezes Cardio Jugular venous pressure: no JVD Rate: regular rate Rhythm: regular rhythm GI Inspection: normal to inspection, no edema, non-distended and scar Palpation: soft, no masses, nontender and No ascites Auscultation: normal bowel sounds Other: + hernias non tender today Skin General skin exam: no rashes or lesions noted Trauma: no lacerations or abrasions Neuro General: alert, oriented x3, oriented, gait normal, moves all extremities, no focal motor deficits and CN's II-XI intact bilaterally Cognition: normal cognition Speech: speech normal Gait: normal gait Motor: muscle tone normal throughout Extrem General: normal to inspection, full ROM and no clubbing, cyanosis or edema Psych Appearance: grossly normal and well kempt Mental Status: mental status grossly normal Speech and Movement: speech and movement normal Affect: normal affect Objective Objective Clinical Data: Vital Signs Temperature 36.8 C 09/24/18 07:20 Temperature Source Tympanic 09/24/18 07:20 Pulse 47 L 09/24/18 07:20 Pulse Rhythm Regular 09/24/18 07:20 Respiratory Rate 20 09/24/18 07:20 Respiratory Effort Non-Labored 09/24/18 07:20 Respiratory Depth Normal 09/24/18 07:20 Respiratory Pattern Normal 09/24/18 07:20 Blood Pressure 113/73 09/24/18 07:20 Blood Pressure Position Sitting 09/22/18 08:44 Pulse Oximetry 92 L 09/24/18 07:20 Oxygen Delivery Method Room Air 09/24/18 07:20 Oxygen Flow Rate 0 09/24/18 07:20 Pain Level 0 09/22/18 18:38 Comment 09/23/18 23:25 Intake & Output 09/23/18 09/24/18 09/24/18 23:59 11:59 23:59 Intake Total 1703.333 / 4468.333 1400 / 1400 Balance 1703.333 / 3468.333 1400 / 1400 Intake: IV 1083.333 / 2908.333 1000 / 1000 Oral 620 / 1560 400 / 400 Other: Urine Color Pale Urine Appearance Clear Clear Urine Odor None Comment voiding throughout day into toilet states voiding well throughout night and AM at anna marie. Denies difficulties. Stool Size Moderate Stool Characteristics Soft Soft Formed Liquid Hard Brown Brown Voiding Methods Toilet Toilet Laboratory Results WBC 13.11 k/cumm (4.4-10.8) H 09/22/18 09:10 RBC 5.16 m/cumm (4.50-6.00) 09/22/18 09:10 Hgb 15.5 g/dL (13.5-17.5) 09/22/18 09:10 Hct 46.4 % (40.0-50.0) 09/22/18 09:10 MCV 89.9 fL (80-95) 09/22/18 09:10 MCH 30.0 pg (27.0-33.0) 09/22/18 09:10 MCHC 33.4 g/dL (32.0-36.0) 09/22/18 09:10 RDW 12.9 % (11.8-14.1) 09/22/18 09:10 Plt Count 291 x1000/uL (130-400) 09/22/18 09:10 MPV 9.3 fL (8.0-11.0) 09/22/18 09:10 Immature Gran % 0.2 09/22/18 09:10 Neutrophils % 86.4 09/22/18 09:10 Lymphocytes % 6.1 09/22/18 09:10 Monocytes % 7.2 09/22/18 09:10 Eosinophils % 0.0 09/22/18 09:10 Basophils % 0.1 09/22/18 09:10 Absolute Neutrophils 11.33 k/cumm (1.2-6.7) H 09/22/18 09:10 Absolute Lymphocytes 0.80 k/cumm (1.2-3.4) L 09/22/18 09:10 Absolute Monocytes 0.94 k/cumm (0.11-0.7) H 09/22/18 09:10 Absolute Eosinophils 0.00 k/cumm (0.0-0.7) 09/22/18 09:10 Absolute Basophils 0.01 k/cumm (0.0-0.2) 09/22/18 09:10 Sodium 143 mmol/L (136-145) 09/22/18 09:10 Potassium 3.7 mmol/L (3.5-5.1) 09/22/18 09:10 Chloride 105 mmol/L (98-107) 09/22/18 09:10 Carbon Dioxide 27.8 mmol/L (21.0-32.0) 09/22/18 09:10 Anion Gap 10.2 mmol/L (3-11) 09/22/18 09:10 BUN 21 mg/dL (7-18) H 09/22/18 09:10 Creatinine 1.20 mg/dL (0.70-1.30) 09/22/18 09:10 Estimated GFR/1.73 m2 >= 60.00 (mL/min/1.73m2) 09/22/18 09:10 Glucose 165 mg/dL (70-100) H 09/22/18 09:10 Calcium 9.7 mg/dL (8.5-10.1) 09/22/18 09:10 Magnesium 2.1 mg/dL (1.8-2.4) 09/22/18 09:10 Total Bilirubin 1.1 mg/dL (0.2-1.0) H 09/22/18 09:10 AST 11 U/L (15-37) L 09/22/18 09:10 ALT 17 U/L (12-78) 09/22/18 09:10 Alkaline Phosphatase 82 U/L (46-116) 09/22/18 09:10 Troponin I 0.05 ng/mL (0.00-0.06) 09/22/18 09:10 Total Protein 7.0 g/dL (6.4-8.2) 09/22/18 09:10 Albumin 3.6 g/dL (3.4-5.0) 09/22/18 09:10 Urine Color Cancelled 09/22/18 09:12 Urine Clarity Cancelled 09/22/18 09:12 Urine pH Cancelled 09/22/18 09:12 Ur Specific [place] Cancelled 09/22/18 09:12 Urine Protein Cancelled 09/22/18 09:12 Urine Ketones Cancelled 09/22/18 09:12 Urine Blood Cancelled 09/22/18 09:12 Urine Nitrite Cancelled 09/22/18 09:12 Urine Bilirubin Cancelled 09/22/18 09:12 Urine Urobilinogen Cancelled 09/22/18 09:12 Ur Leukocyte Esterase Cancelled 09/22/18 09:12 Urine Glucose Cancelled 09/22/18 09:12
--- NOTE | 2018-09-27 14:38 | W.PM.DS.N ---
Date of service: 09/27/18 Time of Service: 14:38 DS: Diagnosis Discharge Diagnosis (1) SBO (small bowel obstruction): Status: Acute (2) Abdominal hernia: Status: Chronic (3) Entropion of both lower eyelids: Status: Acute Discharge Plan Disposition Patient Disposition: HOME Condition: Stable Discharge Details Reason For Visit: PARTIAL SBO Admit Date/Time: 09/22/18 17:20 Admit Provider: Emilie Kilpatrick Attending Provider: Emilie Kilpatrick Primary Care Provider: Mary Ellen Simpson Hospital Course Hospital Course: pt came to ED w/ N/v and distention and not being able to pass flatus. This has resolved. Pt will be d/w home w/ instructions in low fiber/high protein diet. He has Sx scheduled October 10 at [facility]. dilay miralax and walking program to stimulate bowels.( save metamucil and use once fully recovered from surgery) artificial tears for entropion. f/u PCP Home Meds and New Rx's Prescriptions: New polyethylene glycol 3350 [Miralax] 17 gram/dose powder 17 gm PO BID Qty: 510 RF: 5 Ensure High Protein liquid 250 ml PO BID Qty: 2832 RF: 12 TheraTears 0.25 % drops 1 drp OP 4-6XD PRN (Reason: entropion ) Qty: 15 RF: 11 Discontinued bisacodyl [Dulcolax (bisacodyl)] 10 mg suppository 10 mg MS DAILY PRN (Reason: constipation) Qty: 4 RF: 0 Fleet Enema Extra 19-7 gram/197 mL enema 197 ml MS ONCE Qty: 460 RF: 2 Metamucil 3.4 gram/5.4 gram powder 1 tbs PO BID Qty: 660 RF: 0 Discharge Instructions Instructions: Low Fiber Diet (GEN) Additional Instructions: Entropion . Entropion can usually be diagnosed with a routine eye exam and physical. Your doctor may pull on your eyelids during the exam or ask you to blink or close your eyes forcefully. This helps him or her assess your eyelid's position on the eye, its muscle tone and its tightness. If your entropion is caused by scar tissue, previous surgery or other conditions, your doctor will examine the surrounding tissue as well. Treatment The treatment approach depends on what's causing your entropion. Nonsurgical treatments are available to relieve symptoms and protect your eye from damage. When active inflammation or infection causes entropion (spastic entropion), your eyelid may return to its normal alignment as you treat the inflamed or infected eye. But if tissue scarring has occurred, entropion may persist even after the other condition has been treated. Surgery is generally required to fully correct entropion, but short-term fixes can be useful if you can't tolerate surgery or you have to delay it. Therapies ?Soft contact lens. Your eye doctor may suggest that you use a type of soft contact lens as a sort of corneal bandage to help ease symptoms. These are available with or without a refractive prescription. ?Botox. Small amounts of onabotulinumtoxinA (Botox) injected into the lower eyelid can turn the eyelid out. You may get a series of injections, with effects lasting up to six months. ?Stitches that turn the eyelid outward. This procedure can be done in your doctor's office with local anesthesia. After numbing the eyelid, your doctor places several stitches in specific locations along the affected eyelid. The stitches turn the eyelid outward, and resulting scar tissue keeps it in position even after the stitches are removed. After several months, your eyelid may turn itself back inward. So this technique isn't a long-term solution. ?Skin tape. Special transparent skin tape can be applied to your eyelid to keep it from turning in. Surgery The type of surgery you have depends on the condition of the tissue surrounding your eyelid and on the cause of your entropion. If your entropion is age related, your surgeon will likely remove a small part of your lower eyelid. This helps tighten the affected tendons and muscles. You'll have a few stitches on the outside corner of your eye or just below your lower eyelid. If you have scar tissue on the inside of your lid or have had trauma or previous surgeries, your surgeon may perform a mucous membrane graft using tissue from the roof of your mouth or nasal passages. Before surgery you'll receive a local anesthetic to numb your eyelid and the area around it. You may be lightly sedated to make you more comfortable, depending on the type of procedure you're having and whether it's done in an outpatient surgical clinic. After surgery you might need to: ?Use an antibiotic ointment on your eye for one week ?Use cold compresses periodically to decrease bruising and swelling After surgery you will likely experience: ?Temporary swelling ?Bruising on and around your eye Your eyelid might feel tight after surgery. But as you heal, it will become more comfortable. Stitches are usually removed about a week after surgery. You can expect the swelling and bruising to fade in about two weeks. Request an Appointment at [facility] Lifestyle and home remedies To relieve the symptoms of entropion until you have surgery, you can try: ?Eye lubricants. Artificial tears and eye ointments help protect your cornea and keep it lubricated. ?Skin tape. Special transparent skin tape can be applied to your eyelid to keep it from turning in. Place one end of the tape near your lower eyelashes, then pull down gently and attach the other end of the tape to your upper cheek. Ask your doctor to demonstrate proper technique and placement of the tape. -low fiber diet: soft well cooked/over cooked foods only cooked vegetables and over ripe fruit only. avoid bread/ crackers. well cooked rice/pasta. avoid red meat. fish & fowl that is shredded. Push fluids- 8-12 glasses WATER per day. -ensure/protein supplement twice daily until surgery -Miralax BID until surgery. Hold metamucil until after surgery Stand Alone Forms: Nursing Discharge Form Activity:: walking daily 1-2 miles as tolerated to stimulate bowels Equipment/Supplies:: No Equipment Needed Diet:: soft/low fiber/high protein Discharge Orders Discharge Orders: Discharge Order (Routine); Ordered 09/24/18 Ordered By: Emilie Kilpatrick Discharge Data Discharge Date/Time-TO BE ENTERED AT DEPARTURE: 09/24/18 15:24 DS: Summary Status at Discharge Functional status at discharge: independent ambulation Overall status at discharge: patient is back to baseline Time Spent with Patient Greater than 30 minutes Quality: AMI Clinical Trial Participant: No Exam Narrative Exam Narrative: see progress notes from 09/24 DS: Data Vitals/I&O Vitals and I&O: Vital Signs Temperature 36.8 C 09/24/18 07:20 Temperature Source Tympanic 09/24/18 07:20 Pulse 47 L 09/24/18 07:20 Pulse Rhythm Regular 09/24/18 07:20 Respiratory Rate 20 09/24/18 07:20 Respiratory Effort Non-Labored 09/24/18 07:20 Respiratory Depth Normal 09/24/18 07:20 Respiratory Pattern Normal 09/24/18 07:20 Blood Pressure 113/73 09/24/18 07:20 Blood Pressure Position Sitting 09/22/18 08:44 Pulse Oximetry 92 L 09/24/18 07:20 Oxygen Delivery Method Room Air 09/24/18 07:20 Oxygen Flow Rate 0 09/24/18 07:20 Pain Level 0 09/22/18 18:38 Comment 09/23/18 23:25 [facility] Medical History Entropion of both lower eyelids (Acute) SBO (small bowel obstruction) (Acute) Abdominal hernia (Chronic) Umbilical hernia (Chronic ~08/24/18) Malrotation of intestine (Chronic) History of alcoholism (Resolved) History of tobacco use (Resolved) Surgical History S/P tonsillectomy and adenoidectomy (Resolved) History of hernia repair (Chronic ~1987) Family History Mother Dementia TIA (transient ischemic attack) Father No problems noted. Son Depression Daughter No problems noted. Social History Smoking/Tobacco Use Status: Former Tobacco Use Tobacco: How many years used: 18 Alcohol Intake: former Year quit: 1984 Drug use: Never Substance use type: does not use Household members: spouse Number of Children: 2 Pets and animals: Yes Pets and animals: cat(s) and dog(s) What is your relationship status?: Panel score (0-1 are the most socially isolated patients): 1 What type of physical activity do you participate in: none Seatbelt use: always Drive intox or ride w/intox port cdl a driver: No Working smoke detector in home: Yes Carbon monox detector in home: Yes Do you feel safe at home: Yes Do you feel safe in your relationship?: Yes
== END 2018-09-24 15:24 | disposition home or self-care (01) ==
LOC: ER 08:44 → MS 18:23
PROVIDERS: Admitting Provider Surgery; Emergency Provider Physician Assistant; PCP Internal Medicine; Visit Provider Surgery
DX: K56.609 Unspecified intestinal obstruction, unspecified as to partial versus complete obstruction (principal); K46.9 Unspecified abdominal hernia without obstruction or gangrene
CPT/HCPCS: 36415; 80053; 96361; 96374; 96376; 99222; 99232; 99239; 99285; NC; 74019; 74177; 81003; 83735; 84484; 85025; 99284; G0378

== ENCOUNTER 2019-08-25 11:51 | Inpatient (IN) | payer MEDICARE, OTHER, SELFPAY ==
[2019-08-25] VITALS (15 sets, daily range): BP systolic 98–137; BP diastolic 62–99; PULSE 58–105; RESP 18–20; TEMP 36.1–37.1; O2SAT 91–94
--- NOTE | 2019-08-25 12:09 | DI.CT_ITS ---
EXAM: CT ABDOMEN PELVIS W CLINICAL HISTORY: Abdominal pain, nausea, vomiting, history of small. TECHNIQUE: Imaging Protocol: Axial computed tomography images with coronal and sagittal reformatted images were created and reviewed CONTRAST MATERIAL: Intravenous: Omnipaque 350 Contrast volume:125 ml Oral: no COMPARISON: CT ABDOMEN PELVIS W from 09/22/2018 FINDINGS: ABDOMEN: Lung Bases: Normal where visualized. Liver: Normal density. No measurable mass. Gallbladder and biliary tract: No radiodense calculus or dilation. Pancreas: Normal density, no abnormal calcifications or inflammatory process. Spleen: Normal. Kidneys: Normal size, contour and axis. No radiodense stones or obstructive uropathy. No masses seen. Adrenal glands: No masses seen. Abdominal Aorta: Abdominal portion non-dilated. PELVIS: Bladder: Symmetric distention, no gross wall thickening. Bowel: There are dilated loops of small bowel, greatest in the central and lower abdomen measuring up to 5 cm. There are decompressed bowel loops distally. There is some air in the colon and a small q uantity of stool. The stomach is not abnormally distended. Diverticulosis is noted. There is no ev idence of diverticulitis. The appendix is normal. There is no evidence of bowel wall thickening or pneumatosis. There is no free air or free fluid. Peritoneal cavity: No ascites, collection or mesenteric inflammatory response. Bones: Degenerative disc changes.. Reproductive organs: Within normal limits. Lymph nodes: Unremarkable. Impression: Dilated mid to distal small bowel with transition point and decompressed distal small bowel and colon , consistent with a small-bowel obstruction.. RADIATION DOSE DELIVERED: Total DLP DATA REPOSITORY: All CT scans at this facility are submitted to the National Radiology Data Registry (NRDR) Dose Index Registry (DIR) with the [employer] (A[employer]). RADIATION OPTIMIZATION: All CT scans at this facility use at least one of these dose optimization te chniques: automated exposure control; mA and/or kV adjustment per patient size (includes targeted exa ms where dose is matched to clinical indication); or iterative reconstruction.
[2019-08-25 12:19] LABS: Lactate 1.2 mmol/L (0.6-1.4)
[2019-08-25 12:27] LABS: Abs Immature Grans 0.03 k/cumm (0.0-0.09); Absolute Basophil Count 0.02 k/cumm (0.0-0.2); Absolute Eosinophil Count 0.03 k/cumm (0.0-0.7); Absolute Lymphocyte Count 1.63 k/cumm (1.2-3.4); Absolute Monocyte Count 1.33 k/cumm (0.11-0.7); Absolute Neutrophil Count 7.53 k/cumm (1.2-6.7); Basophils % 0.2; Eosinophils % 0.3; HCT 48.4 % (40.0-50.0); HGB 16.4 g/dL (13.5-17.5); Immature Grans % 0.3 %; Lymphocytes % 15.4; Mean Corp. HGB Concentration 33.9 g/dL (32.0-36.0); Mean Corpuscular Volume 88.5 fL (80-95); Mean Platelet Volume 8.9 fL (8.0-11.0); Monocytes % 12.6; Neutrophils % 71.2; Platelet Count 317 x1000/uL (130-400); RBC 5.47 m/cumm (4.50-6.00); RBC Distribution Width 12.5 % (11.8-14.1); White Blood Cell Count 10.57 k/cumm (4.4-10.8)
[2019-08-25] MEDS: Normal Saline 1,000 ML 1000 ML IV ×2 (12:27→13:51)
[2019-08-25] MEDS: Ondansetron 4 MG/2 ML VIAL IVP (12:28)
[2019-08-25 12:46] LABS: ALT 18 U/L (16-63); AST 14 U/L (15-37); Albumin 3.8 g/dL (3.4-5.0); Alkaline Phosphatase 98 U/L (46-116); Anion Gap 11.9 mmol/L (3-11); BUN 29 mg/dL (7-18); Bilirubin, Total 1.6 mg/dL (0.2-1.0); CO2 25.1 mmol/L (21.0-32.0); CREATININE 1.35 mg/dL (0.70-1.30); Calcium 9.4 mg/dL (8.5-10.1); Chloride 103 mmol/L (98-107); Estimated GFR 52.56 (mL/min/1.73m2); Glucose 127 mg/dL (74-106); Lipase 47 U/L (73-393); Potassium 3.7 mmol/L (3.5-5.1); Sodium 140 mmol/L (136-145); Total Protein 7.6 g/dL (6.4-8.2)
[2019-08-25] MEDS: Omnipaque 350 MG/ML 100 ML BTL IV (13:00)
[2019-08-25] MEDS: Omnipaque 350 MG/ML 50 ML BTL IV (13:01)
[2019-08-25] MEDS: Normal Saline - Diluent 50 ML VIAL IV (13:02)
--- NOTE | 2019-08-25 13:22 | ED.GENADUL_ITS ---
Discharge Plan Disposition Patient Disposition: [facility] INPATIENT Condition: Serious Discharge Details Chief Complaint: Abd Prob Clinical Impression: Small bowel obstruction Primary Care Provider: Mary Ellen Simpson ED Provider: Jacob Villegas Home Meds and New Rx's Prescriptions: No Action acetaminophen [Tylenol Arthritis Pain] 650 mg tablet extended release 650 mg PO Q6H RF: 0 ibuprofen 200 mg tablet 400 mg PO Q6H PRNRF: 0 polyethylene glycol 3350 [Miralax] 17 gram/dose powder 17 gm PO BID Qty: 510 RF: 5 TheraTears 0.25 % drops 1 drp OP 4-6XD PRN (Reason: entropion ) Qty: 15 RF: 11 Medical Decision Making 68-year-old gentleman with a history of abdominal surgeries, small bowel obstruction, presents with 4-day history of abdominal pain, nausea, vomiting, lack of bowel movement. He has passed occasionally a small amount of gas. He reports this feels like his previous obstruction. Examination does reveal discomfort as well as decreased-absent bowel sounds. Will obtain routine laboratory values, give IV fluid, Zofran and obtain CT with contrast. Laboratory values reveal a white blood cell count of 10.57 hemoglobin 16.4 hematocrit 48.4 platelet count 317 sodium 140 potassium 3.7 chloride 103. Creatinine 1.35, BUN 29, GFR 52. Lactate 1.2 urine pending Patient voiced concern about receiving IV contrast as he tells me he was told in the past that he should not have it. He denies any allergies whatsoever. His renal function today certainly can tolerate IV contrast and reviewing his previous CT, he did in fact have contrast then. Patient is agreeable to IV contrast, will give a second liter of IV fluid. CT imaging reveals dilated mid to small bowel with transition point to decompressed distal small bowel and colon, consistent with a small bowel obstruction. Patient has had no vomiting while under my care, I have not reflexively placed an NG tube. Discussed CT findings with patient. He is agreeable to admission. I then discussed the case with Dr. Pandya who accepts admission and will write admitting orders Medical Records Medical records reviewed: Yes I reviewed the patient's medical records. Imaging Data Radiologic Study: Attestation: I personally reviewed and interpreted this imaging study as follows: Imaging: X-Ray Radiologist's impression: Dilated mid to small bowel with transition point to decompressed distal small bowel and colon, consistent with a small bowel obstruction Lab Data Lab results reviewed: Yes I reviewed the patient's lab results. Lab results narrative: Laboratory Tests Range/Units 08/25/19 08/25/19 08/25/19 12:15 12:15 12:15 WBC (4.4-10.8) k/cumm 10.57 RBC (4.50-6.00) m/cumm 5.47 Hgb (13.5-17.5) g/dL 16.4 Hct (40.0-50.0) % 48.4 MCV (80-95) fL 88.5 MCH (27.0-33.0) pg 30.0 MCHC (32.0-36.0) g/dL 33.9 RDW (11.8-14.1) % 12.5 Plt Count (130-400) x1000/uL 317 MPV (8.0-11.0) fL 8.9 Immature Gran % % 0.3 Neutrophils % 71.2 Lymphocytes % 15.4 Monocytes % 12.6 Eosinophils % 0.3 Basophils % 0.2 Absolute Neutrophils (1.2-6.7) k/cumm 7.53 H Absolute Lymphocytes (1.2-3.4) k/cumm 1.63 Absolute Monocytes (0.11-0.7) k/cumm 1.33 H Absolute Eosinophils (0.0-0.7) k/cumm 0.03 Absolute Basophils (0.0-0.2) k/cumm 0.02 Sodium (136-145) mmol/L 140 Potassium (3.5-5.1) mmol/L 3.7 Chloride (98-107) mmol/L 103 Carbon Dioxide (21.0-32.0) mmol/L 25.1 Anion Gap (3-11) mmol/L 11.9 H BUN (7-18) mg/dL 29 H Creatinine (0.70-1.30) mg/dL 1.35 H Estimated GFR/1.73 m2 (mL/min/1.73m2) 52.56 Glucose (74-106) mg/dL 127 H Lactate (0.6-1.4) mmol/L 1.2 Calcium (8.5-10.1) mg/dL 9.4 Total Bilirubin (0.2-1.0) mg/dL 1.6 H AST (15-37) U/L 14 L ALT (16-63) U/L 18 Alkaline Phosphatase (46-116) U/L 98 Total Protein (6.4-8.2) g/dL 7.6 Albumin (3.4-5.0) g/dL 3.8 Lipase (73-393) U/L 47 HPI General Mode of arrival: ambulatory . Date/Time Provider Initiated Documentation: 08/25/19 12:07 . Limitations to Documentation: no limitations . Information obtained by: patient . HPI Narrative: This is a 68-year-old ge ntleman who reports diffuse abdominal crampy discomfort mild to moderate in nature, nausea, vomiting, decreased appetite, and no bowel movement for the past 4 days. He has a history of sleep apnea, small bowel obstruction, abdominal hernia, hernia repair, most recently in October 2018 at [facility]. He reports this feels very similar to previous small bowel obstruction. Denies recent illness or trauma. Denies bad food exposure or sick contacts. Denies any fever, chest pain, shortness of breath, cough, back pain, diarrhea, dysuria. Related Data Home Medications Medication Instructions Recorded Confirmed carboxymethylcellulose sodium 1 drp OP 4-6XD PRN #15 ml 09/24/18 08/25/19 [TheraTears] polyethylene glycol 3350 [Miralax] 17 gm PO BID #510 gm 09/24/18 08/25/19 acetaminophen 650 mg 650 mg PO Q6H tab 10/11/18 08/25/19 tablet,extended release ibuprofen 200 mg tablet 400 mg PO Q6H PRN tab 10/11/18 08/25/19 Previous Rx's Medication Instructions Recorded carboxymethylcellulose sodium 1 drp OP 4-6XD PRN #15 ml 09/24/18 [TheraTears] polyethylene glycol 3350 [Miralax] 17 gm PO BID #510 gm 09/24/18 Allergies Allergy/AdvReac Type Severity Reaction Status Date / Time No Known Allergies Allergy Verified 08/25/19 12:05 General Stated Complaint: Abd Prob SERGIO: 3 Review of Systems Constitutional Constitutional: Denies chills, Denies fatigue, Denies fever(s), Denies headach e(s) and Denies weakness Eyes Eyes: Denies change in vision ENT Ears, Nose, Mouth, and Throat: Denies dizziness and Denies headache(s) Cardiovascular Cardiovascular: Denies chest pain and Denies dyspnea Respiratory Respiratory: Denies dyspnea and Denies wheezing Gastrointestinal Gastrointestinal: Reports abdominal pain, Denies diarrhea, Reports nausea and Reports vomiting Genitourinary Genitourinary: Denies dysuria Musculoskeletal Musculoskeletal: Denies back pain, Denies myalgias, Denies numbness and Denies tingling Integumentary/Breasts Skin/Breast: Denies rash Neurologic Neurologic: Denies dizziness, Denies headache(s), Denies numbness, Denies tingling and Denies weakness Endocrine Endocrine: Denies fatigue Allergic/Immunologic Allergic/Immunologic: Denies wheezing ON LICENSE OF [facility] Medical History Abdominal hernia (Chronic) Entropion of both lower eyelids (Acute) History of alcoholism (Resolved) History of tobacco use (Resolved) 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 SBO (small bowel obstruction) (Acute) Umbilical hernia (Chronic ~08/24/18) Surgical History History of hernia repair (Chronic ~1987) 10/10/18 robotic ventral hernia repair with placement of 2 pieces of mesh S/P tonsillectomy and adenoidectomy (Resolved) as a child - unknown date Family History Mother Dementia TIA (transient ischemic attack) Father , cancer but type unknown No problems noted. Son Depression Daughter No problems noted. Social History Smoking/Tobacco Use Status: Former Tobacco Use Tobacco: How many years used: 18 Alcohol Intake: former Year quit: 1984 Drug use: Never Substance use type: does not use Household members: spouse Number of Children: 2 Pets and animals: Yes Pets and animals: cat(s) and dog(s) What is your relationship status?: Panel score (0-1 are the most socially isolated patients): 1 What type of physical activity do you participate in: none Seatbelt use: always Drive intox or ride w/intox route sales driver: No Working smoke detector in home: Yes Carbon monox detector in home: Yes Do you feel safe at home: Yes Do you feel safe in your relationship?: Yes Exam Const General: cooperative, healthy appearing, comfortable and no acute distress Orientation: alert, awake and oriented x3 HENMT Head: normal to inspection, normocephalic and atraumatic Mouth: moist mucous membranes Throat: posterior oropharynx normal Eyes Conjunctivae: conjunctivae normal Neck Neck: normal visual inspection, full ROM, trachea midline and supple Resp Effort & Inspection: normal respiratory effort and able to speak in complete sentences Auscultation: clear to auscultation bilaterally Cardio Rate: regular rate Rhythm: regular rhythm GI Inspection: normal to inspection and obesity Palpation: soft, not firm, no guarding, not rigid and tender (Diffuse mild, worse in the lower quadrants) with no rebound tenderness Auscultation: abnormal bowel sounds (Present in the upper quadrants, absent in the lower) Back/Spine/Pelvis Back: No back tenderness Skin General skin exam: no rashes or lesions noted Neuro General: patient alert, patient awake, patient oriented x3, moves all extremities and no focal motor deficits Cognition: normal cognition Speech: speech normal Motor: muscle tone normal throughout Sensory Exam: no sensory deficits noted Extrem General: normal to inspection, full ROM and capillary refill normal Psych Appearance: grossly normal Mental Status: mental status grossly normal Course Vital Signs Vital signs: Vital Signs Temperature 36.1 C L 08/25/19 11:55 Pulse 105 H 08/25/19 11:55 Respiratory Rate 18 08/25/19 11:55 Blood Pressure 133/99 H 08/25/19 11:55 Pulse Oximetry 93 L 08/25/19 11:55 Temperature 36.1 C L 08/25/19 11:55 Temperature Source Temporal Artery Scan 08/25/19 11:55 Pulse 105 H 08/25/19 11:55 Respiratory Rate 18 08/25/19 11:55 Respiratory Effort Non-Labored 08/25/19 12:02 Blood Pressure 133/99 H 08/25/19 11:55 Pulse Oximetry 93 L 08/25/19 11:55 Oxygen Delivery Method Room Air 08/25/19 11:55 Oxygen Flow Rate 0 08/25/19 11:55 Pain Level 5 08/25/19 11:55 Lab/Test Results Lab/Test Results: Laboratory Tests Range/Units 08/25/19 08/25/19 08/25/19 12:15 12:15 12:15 WBC (4.4-10.8) k/cumm 10.57 RBC (4.50-6.00) m/cumm 5.47 Hgb (13.5-17.5) g/dL 16.4 Hct (40.0-50.0) % 48.4 MCV (80-95) fL 88.5 MCH (27.0-33.0) pg 30.0 MCHC (32.0-36.0) g/dL 33.9 RDW (11.8-14.1) % 12.5 Plt Count (130-400) x1000/uL 317 MPV (8.0-11.0) fL 8.9 Immature Gran % % 0.3 Neutrophils % 71.2 Lymphocytes % 15.4 Monocytes % 12.6 Eosinophils % 0.3 Basophils % 0.2 Absolute Neutrophils (1.2-6.7) k/cumm 7.53 H Absolute Lymphocytes (1.2-3.4) k/cumm 1.63 Absolute Monocytes (0.11-0.7) k/cumm 1.33 H Absolute Eosinophils (0.0-0.7) k/cumm 0.03 Absolute Basophils (0.0-0.2) k/cumm 0.02 Sodium (136-145) mmol/L 140 Potassium (3.5-5.1) mmol/L 3.7 Chloride (98-107) mmol/L 103 Carbon Dioxide (21.0-32.0) mmol/L 25.1 Anion Gap (3-11) mmol/L 11.9 H BUN (7-18) mg/dL 29 H Creatinine (0.70-1.30) mg/dL 1.35 H Estimated GFR/1.73 m2 (mL/min/1.73m2) 52.56 Glucose (74-106) mg/dL 127 H Lactate (0.6-1.4) mmol/L 1.2 Calcium (8.5-10.1) mg/dL 9.4 Total Bilirubin (0.2-1.0) mg/dL 1.6 H AST (15-37) U/L 14 L ALT (16-63) U/L 18 Alkaline Phosphatase (46-116) U/L 98 Total Protein (6.4-8.2) g/dL 7.6 Albumin (3.4-5.0) g/dL 3.8 Lipase (73-393) U/L 47
--- NOTE | 2019-08-25 13:22 | NUR.NOTE ---
Nursing Note: Pt to CT stable without complaints
--- NOTE | 2019-08-25 13:51 | NUR.NOTE ---
Jacob MAURICE was notified that pt sat drops to 89 then recovers to 93. Nursing Note:
--- NOTE | 2019-08-25 13:57 | W.PM.HP.N ---
Date of service: 08/25/19 Time of Service: 14:48 Assessment and Plan Assessment and plan (1) SBO (small bowel obstruction): Status: Acute Assessment and plan: A\\68 year old male with SBO. He is status post hernia repair in October of 2018. He has done well since surgery. Abdominal discomfort started on Wednesday after eating a loaf of pumpkin bread the day before. No N/V. Still passing some flatus P\\ Admit for IV fluids and bowel rest. Further recommendations will depend on his coarse. History of Present Illness Consults Consult date: 08/25/19 Requesting physician: Jacob Villegas Narrative: Mr. Jalloh is a pleasant 68 year old well known to the practice. Last year he was admitted 2 x for small bowel obstructions whiche were felt to be due to a large ventral hernia that he had. [place] [facility] [place] The surgery apparently took 3 hours to do. He has been doing well since then. On Wednesday he ate a whole loaf of pumpkin bread and on wednesday when he woke up he didn't feel good. He did not have a good BM either. He tried going to work but was uncomfortable with crampy abdominal pain so went home. On wednesday he still didn't feel well. He gave himself an enema with minimal results. Wednesday night he was going to come in but was able to drink fluids so he decided to wait another day. Today he woke up and still wasn't feeling well and continued to have crampy abdominal pain. He is still passing minimal flatus. Workup in the ER revealed unremarkable labs. CT scan showed mildly dilated small bowel with a transition zone. No signs of perforation or infection. COMPARISON: CT ABDOMEN PELVIS W from 09/22/2018 FINDINGS: ABDOMEN: Lung Bases: Normal where visualized. Liver: Normal density. No measurable mass. Gallbladder and biliary tract: No radiodense calculus or dilation. Pancreas: Normal density, no abnormal calcifications or inflammatory process. Spleen: Normal. Kidneys: Normal size, contour and axis. No radiodense stones or obstructive uropathy. No masses seen. Adrenal glands: No masses seen. Abdominal Aorta: Abdominal portion non-dilated. PELVIS: Bladder: Symmetric distention, no gross wall thickening. Bowel: There are dilated loops of small bowel, greatest in the central and lower abdomen measuring up to 5 cm. There are decompressed bowel loops distally. There is some air in the colon and a small quantity of stool. The stomach is not abnormally distended. Diverticulosis is noted. There is no evidence of diverticulitis. The appendix is normal. There is no evidence of bowel wall thickening or pneumatosis. There is no free air or free fluid. Peritoneal cavity: No ascites, collection or mesenteric inflammatory response. Bones: Degenerative disc changes.. Reproductive organs: Within normal limits. Lymph nodes: Unremarkable. Impression: Dilated mid to distal small bowel with transition point and decompressed distal small bowel and colon, consistent with a small-bowel obstruction. Review of Systems Constitutional Constitutional: Denies anorexia, Denies fever(s), Denies weakness and Denies weight loss Eyes Eyes: Denies change in vision Cardiovascular Cardiovascular: Denies chest pain, Denies chest pain at rest, Denies irregular heart rhythm, Denies palpitations, Denies dyspnea and Denies dyspnea on exertion Respiratory Respiratory: Denies cough, Denies dyspnea and Denies dyspnea on exertion Gastrointestinal Gastrointestinal: Reports as per HPI Genitourinary Genitourinary: Denies oliguria and Denies dysuria Musculoskeletal Musculoskeletal: Reports system reviewed and no additional complaints, except as documented Integumentary/Breasts Skin/Breast: Reports system reviewed and no additional complaints, except as documented Neurologic Neurologic: Reports system reviewed and no additional complaints, except as documented and Denies weakness Psychiatric Psychiatric: Reports system reviewed and no additional complaints, except as documented Endocrine Endocrine: Denies palpitations [facility] Medical History (Updated 08/25/19 @ 15:01 by Migdalia Pandya MD) Abdominal hernia (Resolved) Entropion of both lower eyelids (Resolved) History of alcoholism (Resolved) History of tobacco use (Resolved) Insomnia (Inactive) 11/04/18 sleep clinic, Ricco Nazario NP 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 Non-restorative sleep (Inactive) Obstructive sleep apnea syndrome, mild (Inactive) moderate in REM sleep, associated with significant nocturnal hypoxemia seen during supine sleep. recommendations: pt should be started on CPAP therapy with mask of choice,heated humidification,and ramp and return to sleep lab for formal titration study. 12/10/18 Sherrell Faith MD 12/30/18 F/U with Ricco Nazario NP - Cpap Ordered 03/17/19 F/u with MARCELA Will (Sleep Clinic) SBO (small bowel obstruction) (Acute) Snoring (Inactive) 11/04/18 sleep clinic, Ricco Nazario NP Umbilical hernia (Resolved ~08/24/18) Surgical History (Updated 08/25/19 @ 15:01 by Migdalia Pandya MD) History of hernia repair (Resolved ~1987) 10/10/18 robotic ventral hernia repair with placement of 2 pieces of mesh S/P tonsillectomy and adenoidectomy (Acute) Family History Mother Dementia TIA (transient ischemic attack) Father , cancer but type unknown No problems noted. Son Depression Daughter No problems noted. 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 Working smoke detector in home: Yes Carbon monox detector in home: Yes Do you feel safe at home: Yes Do you feel safe in your relationship?: Yes Meds Home Medications and Allergies Home Medications Medication Instructions Recorded Confirmed Type carboxymethylcellulose sodium 1 drp OP 4-6XD PRN #15 ml 09/24/18 08/25/19 Rx [TheraTears] polyethylene glycol 3350 [Miralax] 17 gm PO BID #510 gm 09/24/18 08/25/19 Rx acetaminophen 650 mg 650 mg PO Q6H tab 10/11/18 08/25/19 History tablet,extended release ibuprofen 200 mg tablet 400 mg PO Q6H PRN tab 10/11/18 08/25/19 History Allergies Allergy/AdvReac Type Severity Reaction Status Date / Time No Known Allergies Allergy Verified 08/25/19 12:05 Exam Const General: cooperative, comfortable and no acute distress Orientation: alert and oriented x3 HENMT Head: normocephalic and atraumatic Resp Effort & Inspection: normal respiratory effort Auscultation: clear to auscultation bilaterally Cardio Rate: regular rate Rhythm: regular rhythm Heart Sounds: no gallops, no murmurs and no rubs GI Inspection: normal to inspection and scar Palpation: soft and tender (mild pain just to the left of umbilicus. No hernia palpated) Auscultation: hypoactive bowel sounds Results Labs Result diagrams: 08/25/19 12:15 08/25/19 12:15 Labs: Laboratory Results - last 24 hr 08/25/19 08/25/19 08/25/19 12:15 12:15 12:15 WBC 10.57 RBC 5.47 Hgb 16.4 Hct 48.4 MCV 88.5 MCH 30.0 MCHC 33.9 RDW 12.5 Plt Count 317 MPV 8.9 Immature Gran % 0.3 Neutrophils % 71.2 Lymphocytes % 15.4 Monocytes % 12.6 Eosinophils % 0.3 Basophils % 0.2 Absolute Neutrophils 7.53 H Absolute Lymphocytes 1.63 Absolute Monocytes 1.33 H Absolute Eosinophils 0.03 Absolute Basophils 0.02 Sodium 140 Potassium 3.7 Chloride 103 Carbon Dioxide 25.1 Anion Gap 11.9 H BUN 29 H Creatinine 1.35 H Estimated GFR/1.73 m2 52.56 Glucose 127 H Lactate 1.2 Calcium 9.4 Total Bilirubin 1.6 H AST 14 L ALT 18 Alkaline Phosphatase 98 Total Protein 7.6 Albumin 3.8 Lipase 47 Last Vital Signs Temp 97.0 F L 08/25/19 11:55 Pulse 76 08/25/19 13:31 Resp 18 08/25/19 11:55 BP 126/81 08/25/19 13:31 Pulse Ox 91 L 08/25/19 13:31 COVID-19 Screening Traveled to [place] from one of the affected countries or regions?: NO Recent travel in the [place] within the last 14 days?: No Recent out of the country travel within the last 14 days?: No Exposure or possible exposure to illness during travel?: No Had IN PERSON contact w/suspected or confirmed C-19 person: No Have you had the following symptoms in the past few days?: No
[2019-08-25 14:08] LABS: Magnesium 2.3 mg/dL (1.8-2.4)
--- NOTE | 2019-08-25 14:08 | NUR.NOTE ---
pt awake alert offers no complaints of pain or nausea at this time. IV infusing well no swelling or redness noted. Nursing Note:
[2019-08-25] MEDS: Lactated Ringers 1,000 ML 125 ML IV ×2 (15:26→21:43)
--- NOTE | 2019-08-25 16:16 | RESPIRATORY ---
Discussed with patient about the ZAC that's listed in his chart. Patient reported he stopped using CPAP machine as it was putting air in his stomache along with making his SBO worse. He does not want to use a home unit and said its ok if his doesn't bring in his own unit as he wont' use it.
[2019-08-25] MEDS: Pantoprazole 40 MG VIAL IVP (16:39)
[2019-08-25] MEDS: Normal Saline Flush 10 ML SYR IVP (16:39)
[2019-08-25 16:57] LABS: Bilirubin Small (Negative); Blood Negative (Negative); Clarity Clear (Clear); Glucose Negative (Negative); Ketones Trace mg/dL (Negative); Leukocyte Esterase Negative (Negative); Nitrite Negative (Negative); Specific Gravity 1.015 (1.005-1.025)
[2019-08-25 17:18] LABS: Bacteria Negative HPF (Negative); C & S Indicated? No; Casts 0-2 Hyaline LPF (Negative); Crystals Negative HPF (Negative); Epithelial Cells Few HPF (Negative); Mucus Moderate (Negative); RBC 0-2 HPF (0-2); WBC 0-2 HPF (0-5)
[2019-08-25] MEDS: Refresh PLUS Eye Drops 0.4ml 1 EACH OP (20:45)
[2019-08-26 04:45] VITALS: BP 115/74; PULSE 59; RESP 19; TEMP 36.9; O2SAT 92
[2019-08-26] MEDS: Lactated Ringers 1,000 ML 125 ML IV ×2 (06:06→15:08)
[2019-08-26 07:33] LABS: Anion Gap 7.3 mmol/L (3-11); BUN 23 mg/dL (7-18); CO2 26.7 mmol/L (21.0-32.0); CREATININE 1.18 mg/dL (0.70-1.30); Calcium 8.6 mg/dL (8.5-10.1); Chloride 108 mmol/L (98-107); Glucose 85 mg/dL (74-106); Magnesium 1.9 mg/dL (1.8-2.4); Potassium 3.6 mmol/L (3.5-5.1); Sodium 142 mmol/L (136-145)
[2019-08-26 07:55] VITALS: BP 117/70; PULSE 59; RESP 18; TEMP 36.7; O2SAT 93
--- NOTE | 2019-08-26 10:01 | PGE_ITS ---
Date of Service Date of service: 08/26/19 Time of Service: 10:02 Assessment and Plan Assessment and plan (1) SBO (small bowel obstruction): Status: Acute Assessment and plan: A\\68 year old male with SBO. He is status post hernia repair in October of 2018. He has done well since surgery. Abdominal discomfort started on Wednesday after eating a loaf of pumpkin bread the day before. No N/V. Still passing some flatus. Overnight he has had resolution of his pain and has had increase in flatus No BM yet P\\ Start Clear liquids Advance diet as tolerated Subjective Subjective Interval history since last seen: Mr. Wilson is doing well this morning. He has been walking around. he has not had a BM but has been passing increased flatus. he has had no abdominal pain. He is thirsty and hungry. Exam Const General: cooperative, comfortable and no acute distress Orientation: alert and oriented x3 HENMT Head: normocephalic and atraumatic Resp Effort & Inspection: normal respiratory effort Auscultation: clear to auscultation bilaterally Cardio Rate: regular rate Rhythm: regular rhythm GI Inspection: normal to inspection Palpation: soft and nontender Auscultation: normal bowel sounds Objective Objective Clinical Data: Abnormal lab results 08/25/19 08/25/19 08/25/19 Range/Units 12:15 12:15 16:45 Absolute Neutrophils 7.53 H (1.2-6.7) k/cumm Absolute Monocytes 1.33 H (0.11-0.7) k/cumm Chloride (98-107) mmol/L Anion Gap 11.9 H (3-11) mmol/L BUN 29 H (7-18) mg/dL Creatinine 1.35 H (0.70-1.30) mg/dL Glucose 127 H (74-106) mg/dL Total Bilirubin 1.6 H (0.2-1.0) mg/dL AST 14 L (15-37) U/L Urine Protein Trace H (Negative) mg/dL Urine Ketones Trace H (Negative) mg/dL Urine Bilirubin Small H (Negative) Urine Urobilinogen 1.0 H (Up TO 0.2) EU/dL 08/26/19 Range/Units 06:25 Absolute Neutrophils (1.2-6.7) k/cumm Absolute Monocytes (0.11-0.7) k/cumm Chloride 108 H (98-107) mmol/L Anion Gap (3-11) mmol/L BUN 23 H (7-18) mg/dL Creatinine (0.70-1.30) mg/dL Glucose (74-106) mg/dL Total Bilirubin (0.2-1.0) mg/dL AST (15-37) U/L Urine Protein (Negative) mg/dL Urine Ketones (Negative) mg/dL Urine Bilirubin (Negative) Urine Urobilinogen (Up TO 0.2) EU/dL Vital Signs Temperature 98.1 F 08/26/19 07:55 Temperature Source Tympanic 08/26/19 07:55 Pulse 59 L 08/26/19 07:55 Pulse Rhythm Regular 08/25/19 23:45 Respiratory Rate 18 08/26/19 07:55 Respiratory Effort Non-Labored 08/25/19 23:45 Respiratory Depth Normal 08/25/19 23:45 Respiratory Pattern Normal 08/25/19 23:45 Blood Pressure 117/70 08/26/19 07:55 Blood Pressure Mean 91 08/25/19 14:45 Pulse Oximetry 93 L 08/26/19 07:55 Oxygen Delivery Method Room Air 08/26/19 07:55 Oxygen Flow Rate 0 08/26/19 07:55 Pain Level 0 08/26/19 04:45 Intake & Output 08/25/19 08/25/19 08/26/19 11:59 23:59 11:59 Intake Total 2845.417 / 2845.417 1000 / 1000 Output Total 300 / 300 Balance 2545.417 / 2545.417 1000 / 1000 Weight 253 lb 4.978 oz 253 lb 4.978 oz Intake: IV 2785.417 / 2785.417 1000 / 1000 Oral 60 / 60 Output: Urine 300 / 300 Other: Urine Color Yellow Urine Appearance Clear Urine Odor None Comment patient denies having any urinary issues Voiding Methods Urinal Laboratory Results WBC 10.57 k/cumm (4.4-10.8) 08/25/19 12:15 RBC 5.47 m/cumm (4.50-6.00) 08/25/19 12:15 Hgb 16.4 g/dL (13.5-17.5) 08/25/19 12:15 Hct 48.4 % (40.0-50.0) 08/25/19 12:15 MCV 88.5 fL (80-95) 08/25/19 12:15 MCH 30.0 pg (27.0-33.0) 08/25/19 12:15 MCHC 33.9 g/dL (32.0-36.0) 08/25/19 12:15 RDW 12.5 % (11.8-14.1) 08/25/19 12:15 Plt Count 317 x1000/uL (130-400) 08/25/19 12:15 MPV 8.9 fL (8.0-11.0) 08/25/19 12:15 Immature Gran % 0.3 % 08/25/19 12:15 Neutrophils % 71.2 08/25/19 12:15 Lymphocytes % 15.4 08/25/19 12:15 Monocytes % 12.6 08/25/19 12:15 Eosinophils % 0.3 08/25/19 12:15 Basophils % 0.2 08/25/19 12:15 Absolute Neutrophils 7.53 k/cumm (1.2-6.7) H 08/25/19 12:15 Absolute Lymphocytes 1.63 k/cumm (1.2-3.4) 08/25/19 12:15 Absolute Monocytes 1.33 k/cumm (0.11-0.7) H 08/25/19 12:15 Absolute Eosinophils 0.03 k/cumm (0.0-0.7) 08/25/19 12:15 Absolute Basophils 0.02 k/cumm (0.0-0.2) 08/25/19 12:15 Sodium 142 mmol/L (136-145) 08/26/19 06:25 Potassium 3.6 mmol/L (3.5-5.1) 08/26/19 06:25 Chloride 108 mmol/L (98-107) H 08/26/19 06:25 Carbon Dioxide 26.7 mmol/L (21.0-32.0) 08/26/19 06:25 Anion Gap 7.3 mmol/L (3-11) 08/26/19 06:25 BUN 23 mg/dL (7-18) H 08/26/19 06:25 Creatinine 1.18 mg/dL (0.70-1.30) 08/26/19 06:25 Estimated GFR/1.73 m2 >= 60.00 (mL/min/1.73m2) 08/26/19 06:25 Glucose 85 mg/dL (74-106) 08/26/19 06:25 Lactate 1.2 mmol/L (0.6-1.4) 08/25/19 12:15 Calcium 8.6 mg/dL (8.5-10.1) 08/26/19 06:25 Magnesium 1.9 mg/dL (1.8-2.4) 08/26/19 06:25 Total Bilirubin 1.6 mg/dL (0.2-1.0) H 08/25/19 12:15 AST 14 U/L (15-37) L 08/25/19 12:15 ALT 18 U/L (16-63) 08/25/19 12:15 Alkaline Phosphatase 98 U/L (46-116) 08/25/19 12:15 Total Protein 7.6 g/dL (6.4-8.2) 08/25/19 12:15 Albumin 3.8 g/dL (3.4-5.0) 08/25/19 12:15 Lipase 47 U/L (73-393) 08/25/19 12:15 Urine Color Yellow (Yellow) 08/25/19 16:45 Urine Clarity Clear (Clear) 08/25/19 16:45 Urine pH 5.0 (5-8) 08/25/19 16:45 Ur Specific [place] 1.015 (1.005-1.025) 08/25/19 16:45 Urine Protein Trace mg/dL (Negative) H 08/25/19 16:45 Urine Ketones Trace mg/dL (Negative) H 08/25/19 16:45 Urine Blood Negative (Negative) 08/25/19 16:45 Urine Nitrite Negative (Negative) 08/25/19 16:45 Urine Bilirubin Small (Negative) H 08/25/19 16:45 Urine Urobilinogen 1.0 EU/dL (Up TO 0.2) H 08/25/19 16:45 Ur Leukocyte Esterase Negative (Negative) 08/25/19 16:45 Urine RBC 0-2 HPF (0-2) 08/25/19 16:45 Urine WBC 0-2 HPF (0-5) 08/25/19 16:45 Ur Epithelial Cells Few HPF (Negative) 08/25/19 16:45 Urine Crystals Negative HPF (Negative) 08/25/19 16:45 Urine Bacteria Negative HPF (Negative) 08/25/19 16:45 Urine Casts 0-2 hyaline LPF (Negative) 08/25/19 16:45 Urine Mucus Moderate (Negative) 08/25/19 16:45 Ur Culture Indicated? No 08/25/19 16:45 Urine Glucose Negative mg/dL (Negative) 08/25/19 16:45
--- NOTE | 2019-08-26 10:57 | PHA.REVIEW ---
Pharmacy Admission Review - Admission Clinical Review (Last Updated 08/25/19 @ 15:01 by Migdalia Pandya MD) SBO (small bowel obstruction) (Acute) No Known Allergies Allergy (Verified 08/25/19 12:05) Weight 114.9 kg - Renal Dosing Renal Dosing: BUN 23 mg/dL (7-18) H 08/26/19 06:25 Creatinine 1.18 mg/dL (0.70-1.30) 08/26/19 06:25 Medications needing adjustments: Reviewed (crcl ~54ml/min) - Anticoagulation Anticoagulation: Hgb 16.4 g/dL (13.5-17.5) 08/25/19 12:15 Hct 48.4 % (40.0-50.0) 08/25/19 12:15 Plt Count 317 x1000/uL (130-400) 08/25/19 12:15 Creatinine 1.18 mg/dL (0.70-1.30) 08/26/19 06:25 DVT Prohphylaxis: Reviewed Medications: Enoxaparin Therapeutic Anticoagulation: N/A - Opiate Usage Evaluate Pain Scale/Pains Meds: Reviewed - Relevant Labs Sodium 142 mmol/L (136-145) 08/26/19 06:25 Potassium 3.6 mmol/L (3.5-5.1) 08/26/19 06:25 Chloride 108 mmol/L (98-107) H 08/26/19 06:25 Magnesium 1.9 mg/dL (1.8-2.4) 08/26/19 06:25 Electrolytes, C-Reactive P, ESR: Reviewed - DM Control DM Control: Glucose 85 mg/dL (74-106) 08/26/19 06:25 Insulin Dosing: Reviewed - BP Control BP Control: Blood Pressure 117/70 Blood Pressure 115/74 Blood Pressure 98/62 If elevated: N/A - Qtc Review If Elevated: N/A - IV to PO Switch IV Medications: Reviewed (IV MEDS) - Home Meds Home Med List reviewed: Reviewed
[2019-08-26 15:35] VITALS: BP 118/77; PULSE 53; RESP 19; TEMP 36.8; O2SAT 96
--- NOTE | 2019-08-26 15:41 | INITIAL_ITS ---
- If Service Date Differs Date of service: 08/26/19 Time of Service: 17:03 Care Management Initial Assess REASON FOR HOSPITALIZATION:: SBO PAST MEDICAL HISTORY/PAST SURGICAL HISTORY:: Malrotation of intestine, abdominal hernia, umbilical hernia, small bowel obstruction, history alcoholism resolved, tobacco use resolved. Surgical history includes tonsillectomy, adenoidectomy, and ventral hernia repair. PREVIOUS FUNCTIONAL STATUS/SOCIAL/FAMILY SUPPORTS:: Homer resides in [place], with his , Jayleen. The couple have two adult children who reside locally and are supportive. 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 He is independent with all ADLs in the community. He had three admissions this time last year for recurrent SBOs and is hoping to not repeat the same experience. CURRENT FUNCTIONAL STATUS:: Addy is ambulating through the hallways, he is pleasant in interaction and forthcoming with information. ADVANCE DIRECTIVES:: None on file. Has patient been provided with information about the portal?: Yes Did the patient sign up for the portal?: No CODE STATUS:: Full Code INSURANCE COVERAGE / FINANCIAL ISSUES:: Medicare CURRENT HOME/COMMUNITY SERVICES/EQUIPMENT:: No current services or equipment. PRIMARY CARE PHYSICIAN:: Mary Ellen Simpson POTENTIAL DISCHARGE NEEDS:: Follow up appointments. PATIENT/FAMILY EDUCATION NEEDS:: Review discharge instructions, discuss Ask Me Three. ANTICIPATED BARRIERS TO DISCHARGE:: None identified at this time. TRANSPORTATION:: Via private vehicle with his . PLAN:: Homer will return home when ready per MD. He reports Dr. Pandya advising he likely just needs some bowel rest at this time. He is on IVF, reports he is feeling much better and shares no concerns at this time. CM continues to follow.
[2019-08-26] MEDS: Pantoprazole 40 MG VIAL IVP (15:44)
[2019-08-26] MEDS: Normal Saline Flush 10 ML SYR IVP (15:45)
[2019-08-26 18:45] VITALS: BP 142/83; PULSE 54; RESP 19; TEMP 36; O2SAT 95
[2019-08-26 20:43] LABS: COVID-19 RT-PCR UVMMC Result Negative (Negative)
[2019-08-27] MEDS: Lactated Ringers 1,000 ML 80 ML IV (02:30)
[2019-08-27 05:20] VITALS: BP 148/92; PULSE 51; RESP 16; TEMP 36; O2SAT 95
--- NOTE | 2019-08-27 07:55 | DI.RAD_ITS ---
EXAM: 2D digital imaging was performed. CLINICAL HISTORY: SBO. COMPARISON: CT ABDOMEN PELVIS W from 08/25/2019 TECHNIQUE: Supine and upright abdomen and PA chest views were performed. FINDINGS: BOWEL GAS PATTERN: Nondistended. Moderate amount of retained stool.No free air. CALCIFICATIONS: No radiopaque calcifications. OSSEOUS STRUCTURES: Normal for age. OTHER FINDINGS: None. LUNGS: Increased lung markings are seen in the bases and perihilar region. No pleural abnormality se en. HEART: Normal. MEDIASTINUM: Normal. OTHER FINDINGS: None. IMPRESSION: 1. Nonobstructive bowel gas pattern. 2. No radiopaque calculi. 3. Increased lung markings in the bases and perihilar region. Infectious or inflammatory process can not be excluded. Please correlate clinically. DATA REPOSITORY: RADIATION DOSE DELIVERED:
[2019-08-27 08:00] VITALS: BP 118/77; PULSE 60; RESP 20; TEMP 37.2; O2SAT 95
--- NOTE | 2019-08-27 08:17 | DI.VRAD_ITS ---
Addendum created by Alberto Pedroza MD on 08/27/2019 10:28:05 AM EDT Findings were discussed with Migdalia Pandya at 08/27/2019 10:24 AM EDT. Initial report created on 08/27/2019 8:16:58 AM EDT PROCEDURE INFORMATION: Exam: XR Complete Acute Abdomen Series Exam date and time: 08/27/2019 7:45 AM Age: 68 years old Clinical indication: Other: Sbo TECHNIQUE: Imaging protocol: XR complete acute abdomen series, including 2 or more views of the abdomen and a single view chest. COMPARISON: CR XR abdomen flat upright 09/23/2018 11:03 AM FINDINGS: Lungs: Patchy opacities noted predominantly in a perihilar distribution bilaterally. Findings are nonspecific and may reflect an acute infectious/inflammatory process. CT imaging would be recommended for better characterization if clinically suspected, and especially if Covid 19 is suspected/must be excluded.. Pleural space: Normal. No pneumothorax. Heart/Mediastinum: Normal. No cardiomegaly. Gastrointestinal tract: See Lungs finding. Intraperitoneal space: Normal. No free air. Bones/joints: Normal. No acute fracture. Soft tissues: Normal. IMPRESSION: Patchy opacities noted predominantly in a perihilar distribution bilaterally. Findings are nonspecific and may reflect an acute infectious/inflammatory process. CT imaging would be recommended for better characterization if clinically suspected, and especially if Covid 19 is suspected/must be excluded.. Dictated and Authenticated by: Alberto Pedroza MD. Ordering:MEAGAN Negron MD
--- NOTE | 2019-08-27 10:01 | W.PM.PROGNOT ---
Date of Service Date of service: 08/27/19 Time of Service: 10:53 Assessment and Plan Assessment and plan (1) SBO (small bowel obstruction): Status: Acute Assessment and plan: A\\68 year old male with SBO. He is status post hernia repair in October of 2018. He has done well since surgery. Abdominal discomfort started on Wednesday after eating a loaf of pumpkin bread the day before. No N/V. he is passing a lot of gas and feels pressure in his rectal area. No BM yet ABDO Xray shows resolution of his dilated small bowel. he does have a lot of stool in his left colon. P\\ Will advance his diet to regular Give Miralax now and a dulcolax suppository If he has some results with the suppository and the Miralax and he is able to tolerate his diet then we will discharge him to home today. Plan was discussed with patient and he agrees with the plan Subjective Subjective Interval history since last seen: Mr. Jalloh is doing well. He is passing a lot of gas. He feels pressure in the rectal area but has had no BM. Abdominal XRay showed resolution of his dilated small bowel. There is mention of perihilar opacities on the CXR. He is COVID negative and has no symptoms. Exam Const General: cooperative, comfortable and no acute distress Orientation: alert and oriented x3 HENMT Head: normocephalic and atraumatic Resp Effort & Inspection: normal respiratory effort Auscultation: clear to auscultation bilaterally Cardio Rate: regular rate Rhythm: regular rhythm GI Inspection: normal to inspection Palpation: soft, no hepatosplenomegaly and nontender Auscultation: normal bowel sounds Objective Objective Clinical Data: Vital Signs Temperature 99.0 F 08/27/19 08:00 Temperature Source Temporal Artery Scan 08/27/19 08:00 Pulse 60 08/27/19 08:00 Pulse Rhythm Regular 08/27/19 09:28 Respiratory Rate 20 08/27/19 08:00 Respiratory Effort 08/27/19 09:28 Respiratory Depth Normal 08/27/19 09:28 Respiratory Pattern Normal 08/27/19 09:28 Blood Pressure 118/77 08/27/19 08:00 Blood Pressure Mean 91 08/25/19 14:45 Pulse Oximetry 95 08/27/19 08:00 Oxygen Delivery Method Room Air 08/27/19 08:00 Oxygen Flow Rate 0 08/27/19 08:00 Pain Level 0 08/27/19 08:00 Intake & Output 08/26/19 08/26/19 08/27/19 11:59 23:59 11:59 Intake Total 1999 2490 / 4490 450 / 450 Balance 1999 2490 / 4490 450 / 450 Weight 253 lb 4.978 oz Intake: IV 1999 / 3999 1999 / 4000 Oral 490 / 490 450 / 450 Other: Urine Appearance Clear Voiding Methods Toilet Laboratory Results WBC 10.57 k/cumm (4.4-10.8) 08/25/19 12:15 RBC 5.47 m/cumm (4.50-6.00) 08/25/19 12:15 Hgb 16.4 g/dL (13.5-17.5) 08/25/19 12:15 Hct 48.4 % (40.0-50.0) 08/25/19 12:15 MCV 88.5 fL (80-95) 08/25/19 12:15 MCH 30.0 pg (27.0-33.0) 08/25/19 12:15 MCHC 33.9 g/dL (32.0-36.0) 08/25/19 12:15 RDW 12.5 % (11.8-14.1) 08/25/19 12:15 Plt Count 317 x1000/uL (130-400) 08/25/19 12:15 MPV 8.9 fL (8.0-11.0) 08/25/19 12:15 Immature Gran % 0.3 % 08/25/19 12:15 Neutrophils % 71.2 08/25/19 12:15 Lymphocytes % 15.4 08/25/19 12:15 Monocytes % 12.6 08/25/19 12:15 Eosinophils % 0.3 08/25/19 12:15 Basophils % 0.2 08/25/19 12:15 Absolute Neutrophils 7.53 k/cumm (1.2-6.7) H 08/25/19 12:15 Absolute Lymphocytes 1.63 k/cumm (1.2-3.4) 08/25/19 12:15 Absolute Monocytes 1.33 k/cumm (0.11-0.7) H 08/25/19 12:15 Absolute Eosinophils 0.03 k/cumm (0.0-0.7) 08/25/19 12:15 Absolute Basophils 0.02 k/cumm (0.0-0.2) 08/25/19 12:15 Sodium 142 mmol/L (136-145) 08/26/19 06:25 Potassium 3.6 mmol/L (3.5-5.1) 08/26/19 06:25 Chloride 108 mmol/L (98-107) H 08/26/19 06:25 Carbon Dioxide 26.7 mmol/L (21.0-32.0) 08/26/19 06:25 Anion Gap 7.3 mmol/L (3-11) 08/26/19 06:25 BUN 23 mg/dL (7-18) H 08/26/19 06:25 Creatinine 1.18 mg/dL (0.70-1.30) 08/26/19 06:25 Estimated GFR/1.73 m2 >= 60.00 (mL/min/1.73m2) 08/26/19 06:25 Glucose 85 mg/dL (74-106) 08/26/19 06:25 Lactate 1.2 mmol/L (0.6-1.4) 08/25/19 12:15 Calcium 8.6 mg/dL (8.5-10.1) 08/26/19 06:25 Magnesium 1.9 mg/dL (1.8-2.4) 08/26/19 06:25 Total Bilirubin 1.6 mg/dL (0.2-1.0) H 08/25/19 12:15 AST 14 U/L (15-37) L 08/25/19 12:15 ALT 18 U/L (16-63) 08/25/19 12:15 Alkaline Phosphatase 98 U/L (46-116) 08/25/19 12:15 Total Protein 7.6 g/dL (6.4-8.2) 08/25/19 12:15 Albumin 3.8 g/dL (3.4-5.0) 08/25/19 12:15 Lipase 47 U/L (73-393) 08/25/19 12:15 Urine Color Yellow (Yellow) 08/25/19 16:45 Urine Clarity Clear (Clear) 08/25/19 16:45 Urine pH 5.0 (5-8) 08/25/19 16:45 Ur Specific [place] 1.015 (1.005-1.025) 08/25/19 16:45 Urine Protein Trace mg/dL (Negative) H 08/25/19 16:45 Urine Ketones Trace mg/dL (Negative) H 08/25/19 16:45 Urine Blood Negative (Negative) 08/25/19 16:45 Urine Nitrite Negative (Negative) 08/25/19 16:45 Urine Bilirubin Small (Negative) H 08/25/19 16:45 Urine Urobilinogen 1.0 EU/dL (Up TO 0.2) H 08/25/19 16:45 Ur Leukocyte Esterase Negative (Negative) 08/25/19 16:45 Urine RBC 0-2 HPF (0-2) 08/25/19 16:45 Urine WBC 0-2 HPF (0-5) 08/25/19 16:45 Ur Epithelial Cells Few HPF (Negative) 08/25/19 16:45 Urine Crystals Negative HPF (Negative) 08/25/19 16:45 Urine Bacteria Negative HPF (Negative) 08/25/19 16:45 Urine Casts 0-2 hyaline LPF (Negative) 08/25/19 16:45 Urine Mucus Moderate (Negative) 08/25/19 16:45 Ur Culture Indicated? No 08/25/19 16:45 Urine Glucose Negative mg/dL (Negative) 08/25/19 16:45 COVID-19 PCR Negative (Negative) 08/25/19 14:20 Nasopharyn COVID-19 PCR Not Applicable 08/25/19 14:20 Ref Test Perform Site [facility] hospital lab 08/25/19 14:20
[2019-08-27] MEDS: Bisacodyl 10 MG SUPP PR (11:34)
[2019-08-27] MEDS: Polyethylene Glycol 3350 17 GM PACKET PO (11:35)
--- NOTE | 2019-08-27 11:38 | W.PM.DS.N ---
Date of service: 08/27/19 Time of Service: 11:39 DS: Diagnosis Discharge Diagnosis (1) SBO (small bowel obstruction): Status: Acute Discharge Plan Disposition Patient Disposition: HOME Condition: Good Discharge Details Chief Complaint: Abd Prob Clinical Impression: Small bowel obstruction Reason For Visit: SMALL BOWEL OBSTRUCTION Admit Date/Time: 08/25/19 13:53 Admit Provider: Migdalia Pandya Attending Provider: Migdalia Pandya Primary Care Provider: Mary Ellen Simpson ED Provider: Jacob Villegas Hospital Course Hospital Course: Mr. Jalloh is a pleasant 68 year old well known to the practice. Last year he was admitted 2 x for small bowel obstructions which were felt to be due to a large ventral hernia that he had. He underwent Robotic hernia repair at [facility] in early October. The surgery apparently took 3 hours to do. He has been doing well since then. On Wednesday he ate a whole loaf of pumpkin bread and on wednesday when he woke up he didn't feel good. He did not have a good BM either. He tried going to work but was uncomfortable with crampy abdominal pain so went home. On wednesday he still didn't feel well. He gave himself an enema with minimal results. Wednesday night he was going to come in but was able to drink fluids so he decided to wait another day. Wednesday he woke up and still wasn't feeling well and continued to have crampy abdominal pain. He was still passing minimal flatus. Workup in the ER revealed unremarkable labs. CT scan showed mildly dilated small bowel with a transition zone. No signs of perforation or infection. COMPARISON: CT ABDOMEN PELVIS W from 09/22/2018 FINDINGS: ABDOMEN: Lung Bases: Normal where visualized. Liver: Normal density. No measurable mass. Gallbladder and biliary tract: No radiodense calculus or dilation. Pancreas: Normal density, no abnormal calcifications or inflammatory process. Spleen: Normal. Kidneys: Normal size, contour and axis. No radiodense stones or obstructive uropathy. No masses seen. Adrenal glands: No masses seen. Abdominal Aorta: Abdominal portion non-dilated. PELVIS: Bladder: Symmetric distention, no gross wall thickening. Bowel: There are dilated loops of small bowel, greatest in the central and lower abdomen measuring up to 5 cm. There are decompressed bowel loops distally. There is some air in the colon and a small quantity of stool. The stomach is not abnormally distended. Diverticulosis is noted. There is no evidence of diverticulitis. The appendix is normal. There is no evidence of bowel wall thickening or pneumatosis. There is no free air or free fluid. Peritoneal cavity: No ascites, collection or mesenteric inflammatory response. Bones: Degenerative disc changes.. Reproductive organs: Within normal limits. Lymph nodes: Unremarkable. Impression: Dilated mid to distal small bowel with transition point and decompressed distal small bowel and colon, consistent with a small-bowel obstruction. He was admitted for bowel rest and hydration. On Wednesday he felt better. He was passing a lot of gas but still no BM. He was started on clear liquids and did well with that. Abdominal Xray on Wednesday morning showed resolution of the dilated bowel. There was a lot of stool noted in the left large bowel. The diet was advanced to soft diet on Wednesday. He was given a rectal suppository and Miralax. He tolerated a soft diet so he was discharged home on Daily Miralax and a soft, high fiber diet. Of Note- CXR read as perihilar opacities. Lungs: Patchy opacities noted predominantly in a perihilar distribution bilaterally. Findings are nonspecific and may reflect an acute infectious/inflammatory process. CT imaging would be recommended for better characterization if clinically suspected, and especially if Covid 19 is suspected/must be excluded.. COVID-19 test was negative on admission. He was afebrile and had no respiratory symptoms. Home Meds and New Rx's Prescriptions: Continued acetaminophen [Tylenol Arthritis Pain] 650 mg tablet extended release 650 mg PO Q6H RF: 0 ibuprofen 200 mg tablet 400 mg PO Q6H PRNRF: 0 polyethylene glycol 3350 [Miralax] 17 gram/dose powder 17 gm PO BID Qty: 510 RF: 5 TheraTears 0.25 % drops 1 drp OP 4-6XD PRN (Reason: entropion ) Qty: 15 RF: 11 Discharge Instructions Instructions: Bowel Obstruction (GEN) Additional Instructions: Activity at Home after surgery: 1.As tolerated Diet, Nutrition, & wound healin. Eat a variety of fruits and vegetables. Eat plenty of high fiber foods to avoid constipation. 2. Drink plenty of liquids to stay hydrated and avoid constipation For Constipation: Daily Miralax Please call our office if you develop: 1. Fevers >101.5 2. Nausea or Vomiting 3. Worsening pain 4. Redness and thick discharge from the wounds If after hours please call the Hospital at and ask to speak to the on-call surgeon Referrals: Mary Ellen Simpson MD [Primary Care Provider] - (7-10 days for CXR and follow up) Activity:: Activity as Tolerated Equipment/Supplies:: No Equipment Needed Diet:: high Fiber Discharge Orders Discharge Orders: Discharge Order (Routine); Ordered 08/27/19 Ordered By: Migdalia Pandya DS: Summary Status at Discharge Functional status at discharge: independent ambulation Overall status at discharge: patient is back to baseline Mental Status: mental status grossly normal Speech and Movement: speech and movement normal Mood: congruent mood Affect: normal affect Exam Const General: cooperative and comfortable Orientation: alert and oriented x3 HENMT Head: normocephalic and atraumatic Resp Effort & Inspection: normal respiratory effort Auscultation: clear to auscultation bilaterally Cardio Rate: regular rate Rhythm: regular rhythm GI Inspection: normal to inspection Palpation: soft, no hepatosplenomegaly and nontender Auscultation: normal bowel sounds Psych Mental Status: mental status grossly normal Speech and Movement: speech and movement normal Mood: congruent mood Affect: normal affect DS: Data Vitals/I&O Vitals and I&O: Vital Signs Temperature 99.0 F 08/27/19 08:00 Temperature Source Temporal Artery Scan 08/27/19 08:00 Pulse 60 08/27/19 08:00 Pulse Rhythm Regular 08/27/19 09:28 Respiratory Rate 20 08/27/19 08:00 Respiratory Effort 08/27/19 09:28 Respiratory Depth Normal 08/27/19 09:28 Respiratory Pattern Normal 08/27/19 09:28 Blood Pressure 118/77 08/27/19 08:00 Blood Pressure Mean 91 08/25/19 14:45 Pulse Oximetry 95 08/27/19 08:00 Oxygen Delivery Method Room Air 08/27/19 08:00 Oxygen Flow Rate 0 08/27/19 08:00 Pain Level 0 08/27/19 08:00 Intake & Output 08/26/19 08/26/19 08/27/19 11:59 23:59 11:59 Intake Total 1999 / 0 2490 / 4490 1350 / 1350 Balance 1999 / 4490 2490 / 4490 1350 / 1350 Weight 253 lb 4.978 oz Intake: IV 2000 / 4000 2000 / 4000 Oral 490 / 490 1350 / 1350 Other: Urine Appearance Clear Voiding Methods Toilet Data Completed and Pending Labs on day of discharge: Labs from last 24 hours 08/25/19 14:20 COVID-19 PCR Negative Nasopharyn COVID-19 PCR Not Applicable Ref Test Perform Site [facility] hospital lab [facility] Medical History Abdominal hernia (Resolved) Entropion of both lower eyelids (Resolved) History of alcoholism (Resolved) History of tobacco use (Resolved) Insomnia (Inactive) 11/04/18 sleep clinic, Ricco Nazario NP 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 Non-restorative sleep (Inactive) Obstructive sleep apnea syndrome, mild (Inactive) moderate in REM sleep, associated with significant nocturnal hypoxemia seen during supine sleep. recommendations: pt should be started on CPAP therapy with mask of choice,heated humidification,and ramp and return to sleep lab for formal titration study. 12/10/18 Sherrell Faith MD 12/30/18 F/U with Ricco Nazario NP - Cpap Ordered 03/17/19 F/u with MARCELA Will (Sleep Clinic) SBO (small bowel obstruction) (Acute) Snoring (Inactive) 11/04/18 sleep clinic, Ricco Nazario NP Umbilical hernia (Resolved ~08/24/18) Surgical History History of hernia repair (Resolved ~1987) 10/10/18 robotic ventral hernia repair with placement of 2 pieces of mesh S/P tonsillectomy and adenoidectomy (Acute) Family History Mother Dementia TIA (transient ischemic attack) Father , cancer but type unknown No problems noted. Son Depression Daughter No problems noted. 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
--- NOTE | 2019-08-27 13:56 | PDOC.CMDIS ---
LACE Index Scoring Tool - Questions: Length of Stay (in days): 2 Acuity (Admit via E.D.?): Yes E.D. Visits: 3 - Answers: Total Score: 8 Risk of Readmission: Low Risk Care Management Discharge Reason for Hospitalization: SBO Discharge Plan: Homer will return home when ready per MD. He will follow up with his PCP and plan of care as prescribed. He will transport home via private vehicle with his , Jayleen. Patient/Family Education Needs: Review discharge instructions, discuss Ask Me Three.
== END 2019-08-27 13:25 | disposition home or self-care (01) | DRG 390 ==
LOC: ER 14:44 → MS 14:58
PROVIDERS: Admitting Provider Surgery; Emergency Provider Physician Assistant; PCP Internal Medicine; Visit Provider Surgery
DX: K56.609 Unspecified intestinal obstruction, unspecified as to partial versus complete obstruction (principal); R91.8 Other nonspecific abnormal finding of lung field; Z11.59 Encounter for screening for other viral diseases
CPT/HCPCS: 36415; 80048; 80053; 83690; 96361; 96374; 99223; 99232; 99238; 99285; U0003; 74022; 74177; 81003; 81015; 83605; 83735; 85025; J2405; J3490; Q9967

== ENCOUNTER 2019-09-28 02:10 | Outpatient (CLI) | payer OTHER, SELFPAY ==
--- NOTE | 2019-09-28 10:12 | DI.RAD_ITS ---
EXAM: XR CHEST 2V PA LATERAL INDICATION: abnormal chest xray,R93.89. COMPARISON: CT CT ABDOMEN PELVIS W from 08/25/[address] ABDOMEN PELVIS W from 08/25/2019 CR,XR XR ABD FLAT UPRIGHT PA CHEST from 08/27/2019 CR,XR XR ABD FLAT UPRIGHT PA CHEST from 08/27/2019 TECHNIQUE: 2D digital imaging was performed. FINDINGS: The heart is enlarged and the aorta is tortuous, unchanged. There are stable interstitial changes a t the lung bases, consistent with fibrotic changes or scarring. No focal infiltrate, effusion or pul monary edema is seen. Degenerative disc changes are seen in the thoracic spine. IMPRESSION: Cardiomegaly and basilar fibrotic changes. No acute abnormality. DATA REPOSITORY: RADIATION DOSE DELIVERED:
== END 2019-09-28 02:30 ==
PROVIDERS: PCP Internal Medicine; Visit Provider Internal Medicine
DX: I51.7 Cardiomegaly (principal); J84.10 Pulmonary fibrosis, unspecified; J98.4 Other disorders of lung
CPT/HCPCS: 71046

== ENCOUNTER 2020-09-16 19:18 | Inpatient (IN) | payer MEDICARE, OTHER, SELFPAY ==
[2020-09-16] VITALS (15 sets, daily range): BP systolic 82–143; BP diastolic 64–104; PULSE 77–121; RESP 13–22; TEMP 36.9; O2SAT 91–98
--- NOTE | 2020-09-16 19:15 | DI.CT_ITS ---
Exam(s) CT ABDOMEN PELVIS W EXAM: CT ABDOMEN PELVIS W CLINICAL HISTORY: vomiting, hx SBO. TECHNIQUE: Imaging Protocol: Axial computed tomography images with coronal and sagittal reformatted images were created and reviewed CONTRAST MATERIAL: Intravenous: Omnipaque 350 Contrast volume:100 cc Oral: no COMPARISON: CT CT ABDOMEN PELVIS W from 08/25/[address] ABDOMEN PELVIS W from 08/25/2019 CR XR CHEST 2V PA LATERAL from 09/28/2019 CR XR CHEST 2V PA LATERAL from 09/28/2019 FINDINGS: ABDOMEN: Lung Bases: Mild basilar fibrotic changes. Liver: Mildly enlarged. Mild fatty infiltration. No measurable mass. Gallbladder and biliary tract: No radiodense calculus or dilation. Pancreas: Normal density, no abnormal calcifications or inflammatory process. Spleen: Normal. Kidneys: Normal size, contour and axis. Nonobstructing 3 millimeter stone lower pole left kidney. No hydronephrosis. No masses seen. Parapelvic renal cysts. Adrenal glands: No masses seen. Abdominal Aorta: Abdominal portion non-dilated. Atherosclerotic changes. PELVIS: Bladder: Mildly distended, mild wall thickening. Bowel: Dilatation of loops of small bowel in the proximal and mid abdomen with transition point in th e midline. No pneumatosis. Diverticulosis is again noted of the colon. Peritoneal cavity: No ascites, collection or mesenteric inflammatory response. Bones: Degenerative changes in the spine. Reproductive organs: Mild prostate enlargement. Lymph nodes: Unremarkable. Impression: Small-bowel obstruction with transition point in the mid abdomen may be secondary to adhesion versus internal hernia. No pneumatosis or free air. RADIATION DOSE DELIVERED: 1,358.44mGy.cm Total DLP DATA REPOSITORY: All CT scans at this facility are submitted to the National Radiology Data Registry (NRDR) Dose Index Registry (DIR) with the [employer] (A[employer]). RADIATION OPTIMIZATION: All CT scans at this facility use at least one of these dose optimization te chniques: automated exposure control; mA and/or kV adjustment per patient size (includes targeted exa ms where dose is matched to clinical indication); or iterative reconstruction.
--- NOTE | 2020-09-16 19:30 | RT.EKG_ITS ---
APPROVED REPORT Exam: Resting ECG Reason for Exam: abd pain Patient Location: E HR:96 bpm ECG Measurements Heart Rate 96 AXIS AK 219 P 20 QRSd 102 QRS -59 QT 347 T 30 QTc 439 Conclusion Sinus rhythm...normal P axis .AK >215, LAD, consider left anterior fascicular block. Low voltage, precordial leads. Anterolateral Q waves
--- NOTE | 2020-09-16 19:33 | ED.GENADUL_ITS ---
Discharge Plan Disposition Patient Disposition: [facility] INPATIENT Condition: Stable Discharge Details Chief Complaint: Abd Prob Clinical Impression: Small bowel obstruction Primary Care Provider: Mary Ellen Simpson ED Provider: Glenn Martino Home Meds and New Rx's Prescriptions: No Action acetaminophen [Tylenol Arthritis Pain] 650 mg tablet extended release 650 mg PO Q6H RF: 0 ibuprofen 200 mg tablet 400 mg PO Q6H PRNRF: 0 polyethylene glycol 3350 [Miralax] 17 gram/dose powder 17 gm PO BID Qty: 510 RF: 5 TheraTears 0.25 % drops 1 drp OP 4-6XD PRN (Reason: entropion ) Qty: 15 RF: 11 Medical Decision Making 70-year-old male presents from home. States she has a history of current small bowel obstructions, is status post ventral hernia repair, and now reports that after eating a bowl of rice yesterday afternoon he developed abdominal distentio n, bloating, intermittent episodes of nausea with vomiting that are worsened when trying to take liquids or solids by mouth. He has had some flatus but no bowel movement. He has not been ill in any other way. He arrives to the ER well-appearing, conversant and pleasant. His abdomen is distended and slightly tender. Differential gnosis includes ileus, small bowel obstruction. Patient IV access established, referred for laboratory testing and CT imaging. Patient has a white blood cell count of 13, hematocrit 49, platelets 286. Venous lactate 1.3, electrolytes reassuring, BUN 20, creatinine 1.6. Images small bowel obstruction. Transition point seen in mid gut. No free air or pneumatosis. Discussed with Dr. Pandya. Will admit for bowel rest, fluids overnight. We will hold on NG tube at this time. Patient stable and improving. Lab Data Lab results reviewed: Yes I reviewed the patient's lab results. Labs: Laboratory Results - last 24 hr 09/16/20 09/16/20 09/16/20 19:40 19:40 19:40 WBC 13.53 H RBC 5.48 Hgb 16.6 Hct 49.0 MCV 89.4 MCH 30.3 MCHC 33.9 RDW 12.0 Plt Count 286 MPV 9.0 Immature Gran % 0.4 Neutrophils % 79.8 Lymphocytes % 10.6 Monocytes % 8.6 Eosinophils % 0.3 Basophils % 0.3 Nucleated RBC % 0 Absolute Neutrophils 10.80 H Absolute Lymphocytes 1.43 Absolute Monocytes 1.16 H Absolute Eosinophils 0.04 Absolute Basophils 0.04 VBG Lactate 1.3 Sodium 142 Potassium 3.8 Chloride 106 Carbon Dioxide 25.0 Anion Gap 11.0 BUN 20 H Creatinine 1.6 H Estimated GFR/1.73 m2 42.95 Glucose 158 H Calcium 9.3 Magnesium 2.0 Total Bilirubin 1.3 H AST 12 L ALT 18 Alkaline Phosphatase 102 Total Protein 7.5 Albumin 3.9 Amylase 53 Lipase 51 HPI General Mode of arrival: ambulatory . Date/Time Provider Initiated Documentation: 09/16/20 19:19 . Limitations to Documentation: no limitations . Information obtained by: patient . History of Present Illness 70 year old M presents to the emergency department with the chief complaint of Bloating and vomiting, described as moderate and similar to prior episodes, Quality is described as dull and constant, and is localized to the abdomen. Patient reports no radiation. Patient started experiencing this hour(s) and it has been constant. No relieving factors improve symptom(s), Eating worsens symptoms . Patient notes no other symptoms.; denies chest pain, fever/chills, headaches and malaise. Patient did receive the following treatments prior to arrival, none Related Data Home Medications Medication Instructions Recorded Confirmed TheraTears 1 drp OP 4-6XD PRN #15 ml 09/24/18 09/16/20 polyethylene glycol 3350 [Miralax] 17 gm PO BID #510 gm 09/24/18 09/16/20 acetaminophen 650 mg 650 mg PO Q6H tab 10/11/18 09/16/20 tablet,extended release ibuprofen 200 mg tablet 400 mg PO Q6H PRN tab 10/11/18 09/16/20 Previous Rx's Medication Instructions Recorded TheraTears 1 drp OP 4-6XD PRN #15 ml 09/24/18 polyethylene glycol 3350 [Miralax] 17 gm PO BID #510 gm 09/24/18 Allergies Allergy/AdvReac Type Severity Reaction Status Date / Time No Known Allergies Allergy Verified 09/16/20 19:25 General Stated Complaint: Abd Prob SERGIO: 3 Review of Systems Narrative: Similar to previous small bowel obstruction. Positive flatus today, no bowel movement. No fever. 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 Non-restorative sleep Obstructive sleep apnea syndrome, mild CPAP; hypoxia SBO (small bowel obstruction) Snoring 11/04/18 sleep clinic, Rcico Nazario NP Umbilical hernia (~08/24/18) Surgical History History of hernia repair (~1987) 10/10/18 robotic ventral hernia repair with placement of 2 pieces of mesh S/P tonsillectomy and adenoidectomy Family History Mother Dementia TIA (transient ischemic attack) Father , cancer but type unknown No problems noted. Son Depression Daughter No problems noted. 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 Pleasant, well groomed, interactive. HEAD: Normocephalic, atraumatic ENT: Mucous membranes moist, oropharynx unremarkable, External ear exam unremarkable EYES: PERRL, EOMI NECK: Full ROM, no STEFAN, no menigismus CHEST/RESP: Nontender, clear to auscultation bilateral, no wheeze/rhonchi/rales CARDIOVASCULAR: RRR, no murmur, rub rohan. 2+ Rad pulse bilateral ABDOMEN: Soft, mild diffuse tenderness, no rebound, mild tension, decreased but +Bowel sounds EXT: Full ROM, no edema, no rash Neuro: Grossly normal neurologic exam, conversant, interactive. Psych: Speech fluent, thoughts congruent, affect normal Course Vital Signs Vital signs: Vital Signs Pulse 121 H 09/16/20 19:23 Respiratory Rate 22 09/16/20 19:23 Blood Pressure 143/95 H 09/16/20 19:23 Pulse Oximetry 95 09/16/20 19:23 Pulse 121 H 09/16/20 19:23 Respiratory Rate 22 09/16/20 19:23 Respiratory Effort Non-Labored 09/16/20 19:26 Blood Pressure 143/95 H 09/16/20 19:23 Blood Pressure Position Sitting 09/16/20 19:23 Pulse Oximetry 95 09/16/20 19:23 Oxygen Delivery Method Room Air 09/16/20 19:23 Oxygen Flow Rate 0 09/16/20 19:23 Pain Level 2 09/16/20 19:23
[2020-09-16 19:53] LABS: Abs Immature Grans 0.06 10^3/uL (0.0-0.06); Absolute Basophil Count 0.04 10^3/uL (0.0-0.2); Absolute Eosinophil Count 0.04 10^3/uL (0.0-0.7); Absolute Lymphocyte Count 1.43 10^3/uL (1.2-3.4); Absolute Monocyte Count 1.16 10^3/uL (0.1-0.8); Basophils % 0.3; Eosinophils % 0.3; HGB 16.6 g/dL (13.5-17.5); Immature Grans % 0.4; Lymphocytes % 10.6; MCH 30.3 pg (27.0-33.0); MCHC 33.9 % (32.0-36.0); MCV 89.4 fL (80-95); Monocytes % 8.6; Neutrophils % 79.8; Nucleated RBC 0 %; Platelet Count 286 10^3/uL (130-400); RBC 5.48 10^6/uL (4.36-5.78); RDW-SD 39.5 fL; WBC 13.53 10^3/uL (4.4-10.8)
[2020-09-16 19:54] LABS: Lactate 1.3 mmol/L (0.6-1.4)
[2020-09-16 20:11] LABS: ALT 18 U/L (16-63); AST 12 U/L (15-37); Albumin 3.9 g/dL (3.4-5.0); Alkaline Phosphatase 102 U/L (46-116); Amylase 53 U/L (25-115); BUN 20 mg/dL (7-18); Bilirubin, Total 1.3 mg/dL (0.2-1.0); CREATININE 1.6 mg/dL (0.70-1.30); Calcium 9.3 mg/dL (8.5-10.1); Chloride 106 mmol/L (98-107); Estimated GFR 42.95 (mL/min/1.73m2); Glucose 158 mg/dL (74-106); Lipase 51 U/L (73-393); Potassium 3.8 mmol/L (3.5-5.1); Sodium 142 mmol/L (136-145); Total Protein 7.5 g/dL (6.4-8.2)
[2020-09-16] MEDS: Omnipaque 350 MG/ML 100 ML BTL IJ (20:16)
[2020-09-16] MEDS: Normal Saline - Diluent 50 ML VIAL IV (20:34)
--- NOTE | 2020-09-16 21:53 | DI.VRAD_ITS ---
Addendum created by Mandy Stephenson MD on 09/16/2020 9:54:38 PM EDT: THIS REPORT CONTAINS FINDINGS THAT MAY BE CRITICAL TO PATIENT CARE. The findings were verbally communicated via telephone conference with NICCI BECKER at 9:54 PM EDT on 09/16/2020. The findings were acknowledged and understood. Initial report created on 09/16/2020 9:52:41 PM EDT: PROCEDURE INFORMATION: Exam: CT Abdomen And Pelvis With Contrast Exam date and time: 09/16/2020 7:29 PM Age: 70 years old Clinical indication: Abdominal pain; Generalized; Prior surgery; Surgery date: 6+ months; Surgery type: Hernia repair; Patient HX: Vomiting, HX of sbo TECHNIQUE: Imaging protocol: Computed tomography of the abdomen and pelvis with contrast. Radiation optimization: All CT scans at this facility use at least one of these dose optimization techniques: automated exposure control; mA and/or kV adjustment per patient size (includes targeted exams where dose is matched to clinical indication); or iterative reconstruction. Contrast material: OMNIPAQUE 350; Contrast volume: 100 ml; Contrast route: INTRAVENOUS (IV); COMPARISON: CT ABDOMEN PELVIS W 08/25/2019 1:03 PM FINDINGS: Lungs: Slightly increased septal markings within the lung bases which may represent minimal pulmonary fibrosis. This is similar when compared to the prior study. No dense pulmonary consolidation. Pleural spaces: No pleural effusion. Heart: The heart is mildly enlarged. No pericardial effusion. Mediastinal space: Minimal wall thickening within the lower esophagus. Liver: The liver is mildly enlarged and fatty infiltrated. Gallbladder and bile ducts: Normal. No calcified stones. No ductal dilation. Pancreas: The pancreas is normal appearance. Spleen: Normal. No splenomegaly. Adrenal glands: The bilateral adrenal glands are slightly enlarged and nodular suggesting adrenal hyperplasia. Kidneys and ureters: Multiple bilateral parapelvic cysts. A 3 mm nonobstructing stone is seen within the inferior left renal pole. No hydronephrosis. Stomach and bowel: Moderate wall thickening and mild hyperenhancement throughout the gastric folds and gastric antrum. Significantly dilated and fluid-filled loops of small bowel are seen within the proximal and mid small bowel, with a transition point seen within the mid abdomen, just to the right of midline on image 47, series 4. The small bowel loops are dilated up to 5.2 cm in diameter. The distal small bowel and the majority of the colon is collapsed and decompressed. Extensive diverticula are seen throughout the colon without evidence for acute diverticulitis. Appendix: No evidence of appendicitis. Intraperitoneal space: No free air or abscess. Vasculature: Moderate atherosclerotic calcifications are seen within the abdominal aorta without aneurysm. Lymph nodes: Unremarkable. No enlarged lymph nodes. Urinary bladder: The urinary bladder is nondistended. Mild circumferential wall thickening within the urinary bladder. Reproductive: The prostate gland is mildly enlarged. Bones/joints: The diffuse idiopathic skeletal hyperostosis throughout the lower thoracic and upper lumbar spine. No acute compression fracture. Soft tissues: Small bilateral fat containing inguinal hernias. IMPRESSION: 1. Small-bowel obstruction with a transition point seen within the mid small bowel. This is likely secondary to an adhesion. Internal hernia could also give this appearance. No pneumatosis, free air or abscess. 2. Gastroesophagitis. 3. Bilateral parapelvic cysts. Nonobstructing right-sided renal calculus. 4. Mild circumferential wall thickening within the urinary bladder, which may be due to under distension. Cystitis could also have this appearance in the correct clinical context. Dictated and Authenticated by: Mandy Stephenson MD. Ordering:ALICE Elizabeth MD
[2020-09-16 22:17] LABS: Source Nasal/Nares
[2020-09-16] MEDS: Normal Saline 1,000 ML 125 ML IV (22:23)
[2020-09-16] MEDS: Ketorolac 15 MG/ML VIAL IVP (22:23)
[2020-09-17 01:07] LABS: Bilirubin Small (Negative); Blood Negative (Negative); Clarity Sl Cloudy (Clear); Glucose Negative (Negative); Ketones 15 mg/dL (Negative); Leukocyte Esterase Negative (Negative); Nitrite Negative (Negative); Specific Gravity 1.015 (1.005-1.025); pH 5.5 (5-8)
[2020-09-17 01:30] LABS: Bacteria Few HPF (Negative); Crystals Negative HPF (Negative); Epithelial Cells Few HPF (Negative); Mucus Moderate (Negative); RBC 0-2 HPF (0-2); WBC 0-2 HPF (0-5)
[2020-09-17 01:32] LABS: C & S Indicated? No; Casts 0-2 Coarse Granular LPF (Negative)
[2020-09-17 01:38] LABS: COVID-19 PCR Negative (Negative)
[2020-09-17] MEDS: Normal Saline 1,000 ML 125 ML IV (07:14)
--- NOTE | 2020-09-17 08:06 | HPE_ITS ---
Date of service: 09/17/20 Time of Service: 08:06 Assessment and Plan Assessment and plan (1) Small bowel obstruction: Status: Acute Assessment and plan: Mr. Jalloh is a pleasant 70 year old male with a h istory of multiple abdominal surgeries and history of SBO who came to the ER yesterday with symptoms of SBO. CT scan confirmed a mid-small bowel SBO. He is passing some flatus today. Will start him on clear liquids. Decrease his IV fluids D/C to home once passing stool and tolerating a diet. History of Present Illness Consults Consult date: 09/16/20 Requesting physician: Glenn Martino Narrative: Mr. jalloh is well known to our service from prior SBO. He ate some rice yesterday and after that he started to have pain, N/V. He came to the ER were a CT scan showed a SBO. He was admitted for bowel rest and hydration. He is doing well this morning. He has no abdominal pain. He tells me that he has passed some flatus. No N/V today. Review of Systems Constitutional Constitutional: Denies fever(s), Denies headache(s) and Denies weight loss Eyes Eyes: Denies change in vision ENT Ears, Nose, Mouth, and Throat: Denies headache(s) Cardiovascular Cardiovascular: Denies chest pain, Denies irregular heart rhythm, Denies palpitations and Denies dyspnea Respiratory Respiratory: Denies cough and Denies dyspnea Gastrointestinal Gastrointestinal: Reports as per HPI Genitourinary Genitourinary: Reports system reviewed and no additional complaints, except as documented Neurologic Neurologic: Denies headache(s) Endocrine Endocrine: Denies palpitations [facility] Medical History Abdominal hernia Entropion of both lower eyelids History of alcoholism History of tobacco use Insomnia 11/04/18 sleep clinic, Ricco Nazario NP 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 Non-restorative sleep Obstructive sleep apnea syndrome, mild CPAP; hypoxia SBO (small bowel obstruction) Snoring 11/04/18 sleep clinicRicco NP Umbilical hernia (~08/24/18) Surgical History History of hernia repair (~1987) 10/10/18 robotic ventral hernia repair with placement of 2 pieces of mesh S/P tonsillectomy and adenoidectomy Family History Mother Dementia TIA (transient ischemic attack) Father , cancer but type unknown No problems noted. Son Depression Daughter No problems noted. 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 Working smoke detector in home: Yes Carbon monox detector in home: Yes Do you feel safe at home: Yes Do you feel safe in your relationship?: Yes Meds Allergies and Home Medications Allergies Allergy/AdvReac Type Severity Reaction Status Date / Time No Known Allergies Allergy Verified 09/16/20 19:25 Home Medications Medication Instructions Recorded Confirmed Type TheraTears 1 drp OP 4-6XD PRN #15 ml 09/24/18 09/16/20 Rx polyethylene glycol 3350 [Miralax] 17 gm PO BID #510 gm 09/24/18 09/16/20 Rx acetaminophen 650 mg 650 mg PO Q6H tab 10/11/18 09/16/20 History tablet,extended release ibuprofen 200 mg tablet 400 mg PO Q6H PRN tab 10/11/18 09/16/20 History Exam Const General: cooperative, comfortable and no acute distress Orientation: alert and oriented x3 HENMT Head: normocephalic and atraumatic Resp Effort & Inspection: normal respiratory effort Auscultation: clear to auscultation bilaterally Cardio Rate: regular rate Rhythm: regular rhythm Heart Sounds: no gallops, no murmurs and no rubs GI Inspection: normal to inspection Palpation: soft, no hepatosplenomegaly and nontender Auscultation: hypoactive bowel sounds Results Labs Result diagrams: 09/16/20 19:40 09/16/20 19:40 Labs: Laboratory Results - last 24 hr 09/16/20 09/16/20 09/16/20 19:40 19:40 19:40 WBC 13.53 H RBC 5.48 Hgb 16.6 Hct 49.0 MCV 89.4 MCH 30.3 MCHC 33.9 RDW 12.0 Plt Count 286 MPV 9.0 Immature Gran % 0.4 Neutrophils % 79.8 Lymphocytes % 10.6 Monocytes % 8.6 Eosinophils % 0.3 Basophils % 0.3 Nucleated RBC % 0 Absolute Neutrophils 10.80 H Absolute Lymphocytes 1.43 Absolute Monocytes 1.16 H Absolute Eosinophils 0.04 Absolute Basophils 0.04 VBG Lactate 1.3 Sodium 142 Potassium 3.8 Chloride 106 Carbon Dioxide 25.0 Anion Gap 11.0 BUN 20 H Creatinine 1.6 H Estimated GFR/1.73 m2 42.95 Glucose 158 H Calcium 9.3 Magnesium 2.0 Total Bilirubin 1.3 H AST 12 L ALT 18 Alkaline Phosphatase 102 Total Protein 7.5 Albumin 3.9 Amylase 53 Lipase 51 Urine Color Urine Clarity Urine pH Ur Specific Golden Urine Protein Urine Ketones Urine Blood Urine Nitrite Urine Bilirubin Urine Urobilinogen Ur Leukocyte Esterase Urine RBC Urine WBC Ur Epithelial Cells Urine Crystals Urine Bacteria Urine Casts Urine Mucus Ur Culture Indicated? Urine Glucose COVID-19 Source SARS-CoV-2 (PCR) 09/16/20 09/17/20 22:10 00:05 WBC RBC Hgb Hct MCV MCH MCHC RDW Plt Count MPV Immature Gran % Neutrophils % Lymphocytes % Monocytes % Eosinophils % Basophils % Nucleated RBC % Absolute Neutrophils Absolute Lymphocytes Absolute Monocytes Absolute Eosinophils Absolute Basophils VBG Lactate Sodium Potassium Chloride Carbon Dioxide Anion Gap BUN Creatinine Estimated GFR/1.73 m2 Glucose Calcium Magnesium Total Bilirubin AST ALT Alkaline Phosphatase Total Protein Albumin Amylase Lipase Urine Color Yellow Urine Clarity Sl cloudy Urine pH 5.5 Ur Specific Golden 1.015 Urine Protein Trace H Urine Ketones 15 H Urine Blood Negative Urine Nitrite Negative Urine Bilirubin Small H Urine Urobilinogen 1.0 H Ur Leukocyte Esterase Negative Urine RBC 0-2 Urine WBC 0-2 Ur Epithelial Cells Few Urine Crystals Negative Urine Bacteria Few Urine Casts 0-2 coarse granular Urine Mucus Moderate Ur Culture Indicated? No Urine Glucose Negative COVID-19 Source Nasal/nares SARS-CoV-2 (PCR) Negative Last Vital Signs Temp 98.4 F 09/16/20 23:05 Pulse 90 09/16/20 23:05 Resp 18 09/16/20 23:05 BP 141/93 H 09/16/20 23:05 Pulse Ox 92 09/16/20 23:05 COVID-19 Screening Have you, or household traveled for leisure in last 14 days?: No Had IN PERSON contact w/suspected or confirmed C-19 person: No
[2020-09-17 08:28] VITALS: BP 129/80; PULSE 64; RESP 18; TEMP 36.9; O2SAT 93
[2020-09-17] MEDS: Polyethylene Glycol 3350 17 GM PACKET PO ×2 (09:11→19:30)
--- NOTE | 2020-09-17 15:18 | CHAPLAIN ---
Addy was sitting up in his chair, dressed in his own clothes, when I visited this afternoon. He said he doesn't like wearing johnnies and so he wears his own clothes. 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 His hasn't had her second vaccine shot yet, but may drop off some books for him later today. He said he doesn't read novels, but like reading about meta-physics. He seems comfortable being here enjoys interacting with staff.
--- NOTE | 2020-09-17 15:38 | INITIAL_ITS ---
- If Service Date Differs Date of service: 09/17/20 Time of Service: 15:38 Care Management Initial Assess REASON FOR HOSPITALIZATION:: SBO PAST MEDICAL HISTORY/PAST SURGICAL HISTORY:: Malrotation of intestine, abdominal hernia, umbilical hernia, small bowel obstruction, history alcoholism resolved, tobacco use resolved. Surgical history includes tonsillectomy, adenoidectomy, and ventral hernia repair. PREVIOUS FUNCTIONAL STATUS/SOCIAL/FAMILY SUPPORTS:: Homer resides in [place], with his , Jayleen. The couple have two adult children who reside locally and are supportive. 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 He is independent with all ADLs in the community. He had three admissions this time last year for recurrent SBOs and is hoping to not repeat the same experience. CURRENT FUNCTIONAL STATUS:: Addy is ambulating through the hallways, he is pleasant in interaction and forthcoming with information. ADVANCE DIRECTIVES:: None on file. Has patient been provided with info about the portal/API?: Yes Did the patient sign up for the portal?: No CODE STATUS:: Full Code INSURANCE COVERAGE / FINANCIAL ISSUES:: Medicare CURRENT HOME/COMMUNITY SERVICES/EQUIPMENT:: No current services or equipment. PRIMARY CARE PHYSICIAN:: Mary Ellen Simpson POTENTIAL DISCHARGE NEEDS:: Follow up appointments. PATIENT/FAMILY EDUCATION NEEDS:: Review discharge instructions, discuss Ask Me Three. ANTICIPATED BARRIERS TO DISCHARGE:: None identified at this time. TRANSPORTATION:: Via private vehicle with his . PLAN:: Homer will return home when ready per MD. He reports Dr. Pandya advising he likely just needs some bowel rest at this time. He is on IVF, reports he is feeling much better and shares no concerns at this time. CM continues to follow.
[2020-09-17 16:20] VITALS: BP 132/88; PULSE 64; RESP 18; TEMP 37.1; O2SAT 94
[2020-09-17] MEDS: Normal Saline 1,000 ML 80 ML IV (17:39)
[2020-09-17] MEDS: Refresh PLUS Eye Drops 0.4ml 0.4 EACH OP (18:05)
[2020-09-18 00:23] VITALS: BP 115/66; PULSE 72; RESP 16; TEMP 36.6; O2SAT 97
[2020-09-18 08:20] VITALS: BP 132/85; PULSE 60; RESP 17; TEMP 36.3; O2SAT 97
[2020-09-18] MEDS: Polyethylene Glycol 3350 17 GM PACKET PO (08:26)
--- NOTE | 2020-09-18 10:59 | W.PM.PROGNOT ---
Date of Service Date of service: 09/18/20 Time of Service: 10:59 Assessment and Plan Assessment and plan (1) Small bowel obstruction: Status: Acute Assessment and plan: Mr. Jalloh is a pleasant 70 year old male with a history of multiple abdominal surgeries and history of SBO who came to the ER yesterday with symptoms of SBO. CT scan confirmed a mid-small bowel SBO. Tolerating clear liquid diet, will progress to full liquids. Passing flatus. Abdominal pain has resolved. If tolerating will be able to d/c home later today. Subjective Subjective Interval history since last seen: Patient is tolerating clear liquids. (+) Flatus Denies having any pain or discomfort Exam Const General: cooperative, healthy appearing and comfortable Orientation: alert and oriented x3 Resp Effort & Inspection: normal respiratory effort, no audible wheezes and no cough Objective Last Vital Signs Temp 36.3 C L 09/18/20 08:20 Pulse 60 09/18/20 08:20 Resp 17 09/18/20 08:20 BP 132/85 09/18/20 08:20 Pulse Ox 97 09/18/20 08:20
--- NOTE | 2020-09-18 11:00 | DSE_ITS ---
Documented by User: [email or web address] Mcrae 09/18/20 11:51 Date of service: 09/18/20 Time of Service: 11:00 DS: Diagnosis Discharge Diagnosis (1) Small bowel obstruction: Status: Acute Discharge Plan Disposition Patient Disposition: HOME Condition: Stable Discharge Details Reason For Visit: Small Bowel Obstruction Admit Date/Time: 09/16/20 21:54 Admit Provider: Migdalia Pandya Attending Provider: Migdalia Pandya Primary Care Provider: Mary Ellen Simpson Hospital Course Hospital Course: 70 y/o male presented to the ER with complaints of abdominal pain. He stated these symptoms felt similar to his previous SBO. CT scan showed mid small SBO. He started passing flatus and was started on a clear liquid diet. He tolerated this well and was progressed to full liquids. His symptoms have completely resolved and he is eager to return home. He will continue to slowly progress his diet as tolerated. (Full liquids for 24hrs. Soft/low fiber diet for 3-5days. Than slowly transition to high fiber diet). He was given a return to work note for 2020 without restrictions. He will need to follow up with his PCP in the next 2 weeks. Home Meds and New Rx's Prescriptions: Continued acetaminophen [Tylenol Arthritis Pain] 650 mg tablet extended release 650 mg PO Q6H RF: 0 ibuprofen 200 mg tablet 400 mg PO Q6H PRNRF: 0 polyethylene glycol 3350 [Miralax] 17 gram/dose powder 17 gm PO BID Qty: 510 RF: 5 TheraTears 0.25 % drops 1 drp OP 4-6XD PRN (Reason: entropion ) Qty: 15 RF: 11 Discharge Instructions Instructions: Bowel Obstruction (DC) Additional Instructions: (Full liquids for 24hrs. Soft/low fiber diet for 3-5days. Than slowly tra nsition to high fiber diet). Gastrointestinal Soft Diet Overview Overview ? What is a gastrointestinal soft diet? This diet is soft in texture, low in fiber, and easy to digest. The goal is to decrease) [email or web address] ?in the bowel that may cause and discomfort. This diet is often used after abdominal surgery or as a transitional diet after flares. ? ? Meats & Meat Substitutes ? Foods Allowed: Chicken, turkey, fish, tender cuts of beef and pork, ground meats, eggs, creamy nut butters, tofu, skinless hot dogs, sausage patties without whole spices ? Foods to Avoid : Tough, fibrous meats with gristle, meat with casings (hot dogs, sausage, kielbasa), lunch meats with whole spices, shellfish, beans, chunky peanut butter, nuts Fruits and Juices ? Foods Allowed: Fruit juices without pulp, banana, avocado, applesauce, canned peaches and pears, cooked fruit without the skin/seeds ? Foods to Avoid: Juices with pulp, fresh fruit (except banana and avocado), dried fruits, canned fruit cocktail and pineapple, coconut, frozen/thawed berries Vegetables ? Foods Allowed: Well-cooked or canned vegetables, potatoes without skin, tomato sauces, vegetable juice ? Foods to Avoid: Raw vegetables, all corn, all mushrooms, stewed tomatoes, potato skins, stir-ding vegetables, sauerkraut, pickles, olives, all dried beans, peas, and legumes ? Cereals and Grains ? Foods Allowed: Low- fiber dry or cooked cereals (less than 2 grams fiber per serving), white rice, pasta, macaroni, or noodles ? Foods to Avoid: Cereals with nuts, berries, dried fruits, whole grain cereals, bran cereals, granola, brown or wild rice, whole grain pasta Breads and Crackers ? Foods Allowed: White/refined breads and rolls, plain bagel, toast, plain crackers, leatha crackers ? Foods to Avoid: Whole grain breads- including white whole grain; bread/ rolls with raisins, nuts or seeds, multi-grain crackers Dairy ? Foods Allowed: Milk, cheese, yogurt, milkshakes, pudding, ice cream, cottage cheese, sherbet ;?lactose free or low lactose versions if lactose intolerant ? Foods to Avoid: Dairy product mixed with fresh fruit (except banana), berries, nuts or seeds Desserts ? Foods Allowed: Plain cake, pudding, custard, ice cream, sherbet, gelatin, fruit whips ? Foods to Avoid: Any dessert that contains nuts, dried fruits, coconut, or fruits with seeds Herbs and Spices ? Foods Allowed: All ground spices or herbs, salt ? Foods to Avoid: Whole spices such as peppercorns, whole cloves, anise seeds, celery seeds, rishabh, joel seeds, and fresh herbs Snacks/Other Foods ? Foods Allowed: Sugar, honey, jelly, mayonnaise, mustard, soy sauce, oil, butter, margarine, marshmallows, cookies without dried fruits or nuts, snack chips and pretzels using refined flours ? Foods to Avoid: Carbonated beverages, jams or jellies with seeds, popcorn After several weeks, slowly start to reintroduce the ?Foods to Avoid? back into your diet unless your doctor has told you otherwise. Try a small portion of one of these foods each day. If it does not bother you within 24 hours, it can be added to your diet. Continue to add new foods in this way. Some people may continue to have food sensitivities and may need to continue to avoid certain foods. If you cannot tolerate a food, avoid that food for a few weeks before you try it again. Guidelines when eating 1.??? Avoid any food that you cannot tolerate or that causes gas, bloating, or stomach pain. 2.??? Make time for your meals. Do not eat while you are in a hurry. Cut your food into small pieces. Chew each bite to a mashed potato consistency. Do not eat when you cannot concentrate on chewing well. 3.??? Drink at least 6-8 cups of fluid per day? Fluids include: water, coffee, tea, juice, milk, popsicles, soups, gelatin, pudding, ice cream, sherbet, and yogurt. In addition, choose caffeine-free beverages more often, especially if you are having?diarrhea. 4.??? A daily multivitamin may be recommended if diet is limited in amounts or variety of foods. Do not take any herbal supplements without first checking with your doctor. ? Stand Alone Forms: Nursing Discharge Form Referrals: Mary Ellen Simpson MD [Primary Care Provider] - 10/02/20 1:15 pm Activity:: Activity as Tolerated Equipment/Supplies:: No Equipment Needed Diet:: Start with Full liquids and slowly progress to soft, then regular diet Discharge Orders Discharge Orders: Discharge Order (Routine); Ordered 09/18/20 Ordered By: Emilie Kilpatrick DS: Data Vitals/I&O Vitals and I&O: Vital Signs Temperature 36.3 C L 09/18/20 08:20 Temperature Source Tympanic 09/18/20 08:20 Pulse 60 09/18/20 08:20 Pulse Rhythm Regular 09/18/20 08:30 Pulse 77 09/16/20 22:15 Respiratory Rate 17 09/18/20 08:20 Respiratory Effort Non-Labored 09/18/20 08:30 Respiratory Depth Normal 09/18/20 08:30 Respiratory Pattern Normal 09/18/20 08:30 Blood Pressure 132/85 09/18/20 08:20 Blood Pressure Mean 88 09/16/20 22:15 Blood Pressure Position Sitting 09/16/20 19:23 Pulse Oximetry 97 09/18/20 08:20 Oxygen Delivery Method Room Air 09/18/20 08:20 Oxygen Flow Rate 0 09/18/20 08:20 Pain Level 0 09/18/20 08:20 Intake & Output 09/17/20 09/18/20 09/18/20 18:59 06:59 18:59 Intake Total 2229.083 / 2229.083 Output Total 250 / 250 Balance 1979.083 / 1979.083 Intake: IV 879.083 / 879.083 Oral 1350 / 1350 Output: Urine 250 / 250 Other: Urine Color Yellow Urine Appearance Clear Urine Odor Normal Comment pT voids independent into toilet. voiding independently in the bathroom without any issues voiding indepedently. 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 Non-restorative sleep Obstructive sleep apnea syndrome, mild CPAP; hypoxia SBO (small bowel obstruction) Snoring 11/04/18 [facility] Umbilical hernia (~08/24/18) Surgical History History of hernia repair (~1987) 10/10/18 robotic ventral hernia repair with placement of 2 pieces of mesh S/P tonsillectomy and adenoidectomy Family History Mother Dementia TIA (transient ischemic attack) Father , cancer but type unknown No problems noted. Son Depression Daughter No problems noted. Social History Smoking/Tobacco Use Status: Former Tobacco Use Tobacco: How many years used: 18 Smoking risk assessment performed?: Yes Alcohol Intake: former Year quit: 1984 Drug use: Never Substance use type: does not use Household members: spouse Number of Children: 2 Communication Needs: None current occupation: works part at [employer] Pets and animals: Yes Pets and animals: cat(s) and dog(s) What is your relationship status?: Panel score (0-1 are the most socially isolated patients): 1 What type of physical activity do you participate in: none Seatbelt use: always Drive intox or ride w/intox armored car guard and driver: No Working smoke detector in home: Yes Carbon monox detector in home: Yes Do you feel safe at home: Yes Do you feel safe in your relationship?: Yes Documented by User: Emilie Kilpatrick DO 09/18/20 14:12 Discharge Plan Disposition Patient Disposition: HOME Condition: Stable Discharge Details Reason For Visit: Small Bowel Obstruction Admit Date/Time: 09/16/20 21:54 Admit Provider: Migdalia Pandya Attending Provider: Migdalia Pandya Primary Care Provider: Mary Ellen Simpson Hospital Course Hospital Course: 70 y/o male presented to the ER with complaints of abdominal pain. He stated these symptoms felt similar to his previous SBO. CT scan showed mid small SBO. He started passing flatus and was started on a clear liquid diet. He tolerated this well and was progressed to full liquids. His symptoms have completely resolved and he is eager to return home. He will continue to slowly progress his diet as tolerated. (Full liquids for 24hrs. Soft/low fiber diet for 3-5days. Than slowly transition to high fiber diet). He was given a return to work note for 2020 without restrictions. He will need to follow up with his PCP in the next 2 weeks. Home Meds and New Rx's Prescriptions: Continued acetaminophen [Tylenol Arthritis Pain] 650 mg tablet extended release 650 mg PO Q6H RF: 0 ibuprofen 200 mg tablet 400 mg PO Q6H PRNRF: 0 polyethylene glycol 3350 [Miralax] 17 gram/dose powder 17 gm PO BID Qty: 510 RF: 5 TheraTears 0.25 % drops 1 drp OP 4-6XD PRN (Reason: entropion ) Qty: 15 RF: 11 Discharge Instructions Instructions: Bowel Obstruction (DC) Additional Instructions: (Full liquids for 24hrs. Soft/low fiber diet for 3-5days. Than slowly transition to high fiber diet). Gastrointestinal Soft Diet Overview Overview ? What is a gastrointestinal soft diet? This diet is soft in texture, low in fiber, and easy to digest. The goal is to decrease) [email or web address] ?in the bowel that may cause and discomfort. This diet is often used after abdominal surgery or as a transitional diet after flares. ? ? Meats & Meat Substitutes ? Foods Allowed: Chicken, turkey, fish, tender cuts of beef and pork, ground meats, eggs, creamy nut butters, tofu, skinless hot dogs, sausage patties without whole spices ? Foods to Avoid : Tough, fibrous meats with gristle, meat with casings (hot dogs, sausage, kielbasa), lunch meats with whole spices, shellfish, beans, chunky peanut butter, nuts Fruits and Juices ? Foods Allowed: Fruit juices without pulp, banana, avocado, applesauce, canned peaches and pears, cooked fruit without the skin/seeds ? Foods to Avoid: Juices with pulp, fresh fruit (except banana and avocado), dried fruits, canned fruit cocktail and pineapple, coconut, frozen/thawed berries Vegetables ? Foods Allowed: Well-cooked or canned vegetables, potatoes without skin, tomato sauces, vegetable juice ? Foods to Avoid: Raw vegetables, all corn, all mushrooms, stewed tomatoes, potato skins, stir-ding vegetables, sauerkraut, pickles, olives, all dried beans, peas, and legumes ? Cereals and Grains ? Foods Allowed: Low- fiber dry or cooked cereals (less than 2 grams fiber per serving), white rice, pasta, macaroni, or noodles ? Foods to Avoid: Cereals with nuts, berries, dried fruits, whole grain cereals, bran cereals, granola, brown or wild rice, whole grain pasta Breads and Crackers ? Foods Allowed: White/refined breads and rolls, plain bagel, toast, plain crackers, leatha crackers ? Foods to Avoid: Whole grain breads- including white whole grain; bread/ rolls with raisins, nuts or seeds, multi-grain crackers Dairy ? Foods Allowed: Milk, cheese, yogurt, milkshakes, pudding, ice cream, cottage cheese, sherbet ;?lactose free or low lactose versions if lactose intolerant ? Foods to Avoid: Dairy product mixed with fresh fruit (except banana), berries, nuts or seeds Desserts ? Foods Allowed: Plain cake, pudding, custard, ice cream, sherbet, gelatin, fruit whips ? Foods to Avoid: Any dessert that contains nuts, dried fruits, coconut, or fruits with seeds Herbs and Spices ? Foods Allowed: All ground spices or herbs, salt ? Foods to Avoid: Whole spices such as peppercorns, whole cloves, anise seeds, celery seeds, rishabh, joel seeds, and fresh herbs Snacks/Other Foods ? Foods Allowed: Sugar, honey, jelly, mayonnaise, mustard, soy sauce, oil, butter, margarine, marshmallows, cookies without dried fruits or nuts, snack chips and pretzels using refined flours ? Foods to Avoid: Carbonated beverages, jams or jellies with seeds, popcorn After several weeks, slowly start to reintroduce the ?Foods to Avoid? back into your diet unless your doctor has told you otherwise. Try a small portion of one of these foods each day. If it does not bother you within 24 hours, it can be added to your diet. Continue to add new foods in this way. Some people may continue to have food sensitivities and may need to continue to avoid certain foods. If you cannot tolerate a food, avoid that food for a few weeks before you try it again. Guidelines when eating 1.??? Avoid any food that you cannot tolerate or that causes gas, bloating, or stomach pain. 2.??? Make time for your meals. Do not eat while you are in a hurry. Cut your food into small pieces. Chew each bite to a mashed potato consistency. Do not eat when you cannot concentrate on chewing well. 3.??? Drink at least 6-8 cups of fluid per day? Fluids include: water, coffee, tea, juice, milk, popsicles, soups, gelatin, pudding, ice cream, sherbet, and yogurt. In addition, choose caffeine-free beverages more often, especially if you are having?diarrhea. 4.??? A daily multivitamin may be recommended if diet is limited in amounts or variety of foods. Do not take any herbal supplements without first checking with your doctor. ? Stand Alone Forms: Nursing Discharge Form Referrals: Mary Ellen Simpson MD [Primary Care Provider] - 10/02/20 1:15 pm Activity:: Activity as Tolerated Equipment/Supplies:: No Equipment Needed Diet:: Start with Full liquids and slowly progress to soft, then regular diet Discharge Orders Discharge Orders: Discharge Order (Routine); Ordered 09/18/20 Ordered By: Emilie Kilpatrick DS: Summary Time Spent with Patient providing and/or coordinating discharge services: Less than 30 minutes Status at Discharge Functional status at discharge: independent ambulation Overall status at discharge: patient is progressing back to baseline Mental Status: mental status grossly normal Speech and Movement: speech and movement normal Mood: congruent mood Affect: normal affect Exam Psych Mental Status: mental status grossly normal Speech and Movement: speech and movement normal Mood: congruent mood Affect: normal affect [facility] Medical History Abdominal hernia Entropion of both lower eyelids History of alcoholism History of tobacco use Insomnia 11/04/18 sleep clinic, Ricco Nazario NP 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 Non-restorative sleep Obstructive sleep apnea syndrome, mild CPAP; hypoxia SBO (small bowel obstruction) Snoring 11/04/18 sleep clinic, Ricco Nazario NP Umbilical hernia (~08/24/18) Surgical History History of hernia repair (~1987) 10/10/18 robotic ventral hernia repair with placement of 2 pieces of mesh S/P tonsillectomy and adenoidectomy Family History Mother Dementia TIA (transient ischemic attack) Father , cancer but type unknown No problems noted. Son Depression Daughter No problems noted. Social History Smoking/Tobacco Use Status: Former Tobacco Use Tobacco: How many years used: 18 Smoking risk assessment performed?: Yes Alcohol Intake: former Year quit: 1984 Drug use: Never Substance use type: does not use Household members: spouse Number of Children: 2 Communication Needs: None current occupation: works part at [employer] Pets and animals: Yes Pets and animals: cat(s) and dog(s) What is your relationship status?: Panel score (0-1 are the most socially isolated patients): 1 What type of physical activity do you participate in: none Seatbelt use: always Drive intox or ride w/intox armored car guard and driver: No Working smoke detector in home: Yes Carbon monox detector in home: Yes Do you feel safe at home: Yes Do you feel safe in your relationship?: Yes
--- NOTE | 2020-09-18 17:37 | PDOC.CMDIS ---
- If Service Date Differs Date of service: 11/15/20 Time of Service: 11:08 LACE Index Scoring Tool - Questions: Length of Stay (in days): 2 Acuity (Admit via E.D.?): Yes E.D. Visits: 1 - Answers: Total Score: 6 Risk of Readmission: Low Risk Care Management Discharge Reason for Hospitalization: SBO Discharge Plan: Homer will return home when ready per MD. He was provided specific instructions and activity restrictions for post hospitalization including diet advancements. He was also provided a return to work letter. He will transport via private vehicle with his . Patient/Family Education Needs: Review discharge instructions, discuss Ask Me Three.
== END 2020-09-18 15:25 | disposition home or self-care (01) | DRG 390 ==
LOC: ER 22:11 → MS 09-17 00:46
PROVIDERS: Admitting Provider Surgery; Emergency Provider Emergency Medicine; PCP Internal Medicine; Visit Provider Surgery
DX: K56.609 Unspecified intestinal obstruction, unspecified as to partial versus complete obstruction (principal); F10.21 Alcohol dependence, in remission; G47.00 Insomnia, unspecified; G47.33 Obstructive sleep apnea (adult) (pediatric); Z87.891 Personal history of nicotine dependence; Z20.822 Contact with and (suspected) exposure to COVID-19
CPT/HCPCS: 80053; 83690; 87635; 93005; 96374; 99221; 99238; 99285; 74177; 81003; 81015; 82150; 83605; 83735; 85025; 93010; 99284; J1885; J3490

== ENCOUNTER → 2023-12-16 14:19 | Outpatient (BNVA) | payer MEDICARE, OTHER, SELFPAY | PROVIDERS: PCP Student in an Organized Health Care Education/Training Program; Referring Provider Student in an Organized Health Care Education/Training Program; Visit Provider Surgery | DX: L57.0 Actinic keratosis (principal) | CPT/HCPCS: 17000; 99203 ==

== ENCOUNTER 2024-02-01 03:25 | Outpatient (CLI) | payer MEDICARE, OTHER, SELFPAY ==
[2024-02-01 10:13] LABS: HGB 15.7 g/dL (13.5-17.5)
[2024-02-01 11:02] LABS: ALT 16 U/L (16-63); AST 11 U/L (15-37); Albumin 3.5 g/dL (3.4-5.0); Alkaline Phosphatase 107 U/L (46-116); BUN 14 mg/dL (7-18); Bilirubin, Total 0.82 mg/dL (0.2-1.0); CREATININE 1.2 mg/dL (0.70-1.30); Calcium 9.5 mg/dL (8.5-10.1); Calculated LDL 101 mg/dL (<100); Chloride 103 mmol/L (98-107); Cholesterol 161 mg/dL (<200); Estimated GFR 63.85 (mL/min/1.73m2); Glucose 96 mg/dL (74-106); HDL Cholesterol 44 mg/dL (40-60); Potassium 4.4 mmol/L (3.5-5.1); Sodium 139 mmol/L (136-145); Total Protein 7.2 g/dL (6.4-8.2); Triglyceride 82 mg/dL (<150); Vitamin D 25 Total 20.4 ng/mL (30-100)
== END 2024-02-01 03:26 | disposition home or self-care (01) ==
PROVIDERS: PCP Student in an Organized Health Care Education/Training Program; Referring Provider Student in an Organized Health Care Education/Training Program; Visit Provider Student in an Organized Health Care Education/Training Program
DX: I51.7 Cardiomegaly (principal); G47.33 Obstructive sleep apnea (adult) (pediatric); Z91.89 Other specified personal risk factors, not elsewhere classified; Z13.220 Encounter for screening for lipoid disorders; Z13.1 Encounter for screening for diabetes mellitus; I51.9 Heart disease, unspecified; Z68.41 Body mass index [BMI] 40.0-44.9, adult
CPT/HCPCS: 36415; 80053; 80061; 82306; 85014; 85018

== ENCOUNTER 2024-04-13 02:54 | Outpatient (CLI) | payer MEDICARE, OTHER, SELFPAY ==
--- NOTE | 2024-04-13 08:30 | DI.RAD_ITS ---
Exam(s) XR HIP RT COMPLETE AP PELVIS EXAM: XR HIP RT COMPLETE AP PELVIS INDICATION: Pain in unspecified hip, M25.559,evaluate pain; possible impingement per PT. COMPARISON: No exams were available for comparison TECHNIQUE: 2D digital imaging was performed. Three views. FINDINGS: Moderate narrowing of the right hip joint space. Moderate acetabular spurring. Spurring from the ma rgin of the femoral neck. The right hip joint space is maintained. The SI joints are unremarkable. Mild spurring at the pubic symphysis. 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 DATA REPOSITORY: RADIATION DOSE DELIVERED:
== END 2024-04-13 03:14 ==
LOC: DI 02:54
PROVIDERS: PCP Student in an Organized Health Care Education/Training Program; Visit Provider Student in an Organized Health Care Education/Training Program
DX: M16.12 Unilateral primary osteoarthritis, left hip (principal); M25.551 Pain in right hip
CPT/HCPCS: 73502